=== PATIENT | female | born 1945 | race Asian ===

== ENCOUNTER → 2018-01-26 09:37 | Outpatient (CLI) | payer MEDICARE, MEDICAID, SELFPAY ==
[2018-01-26 10:15] LABS: Add Manual Diff / Slide Review NO; Basophils Percent Auto 0.6 % (0-2); Eosinophils Percent Auto 3.4 % (2-4); Hematocrit 32.9 % (36-46); Hemoglobin 10.8 g/dL (12.0-16.0); Lymphocytes Percent Auto 36.8 % (25-40); Mean Corpuscular HGB Conc 32.7 % (30-36); Mean Corpuscular Volume 94.7 fL (80-100); Monocytes Percent Auto 8.5 % (3-14); Neutrophils Absolute Auto 3800 /uL (3000-5900); Neutrophils Percent Auto 50.7 % (50-75); Platelet Count 258 X10^3/uL (150-400); Red Blood Cell Count 3.47 X10^6/uL (4.0-5.2); Red Cell Distribution Width 14.2 % (11.6-14.8); White Blood Cell Count 7.5 X10^3/uL (4.5-11.0)
[2018-01-26 10:55] LABS: HEMOLYSIS < 15 (0-50); Iron 49 ug/dL (37-170)
[2018-01-26 10:57] LABS: Blood Urea Nitrogen 17 mg/dL (7-17); Calcium 9.2 mg/dL (8.4-10.2); Carbon Dioxide 25 mmol/L (22-32); Chloride 108 mmol/L (98-107); Estimated Glomerular Filt Rate 54.5 mL/min (>60); Glucose 87 mg/dL (80-110); HEMOLYSIS < 15 (0-50); Sodium 142 mmol/L (137-145)
[2018-01-26 11:06] LABS: Percent Iron Saturation 12 % (15-50); Total Iron Binding Capacity 409 ug/dL (265-497); Transferrin 315 mg/dL (206-381)
[2018-01-26 11:34] LABS: Creatinine Urine Random 64.5 mg/dL
[2018-01-26 11:39] LABS: Microalbumi Creatinin Ratio Ur 9.3 ug/mg CR (<30); Microalbumin Urine Random < 0.6 mg/dL (0-1.6)
[2018-01-26 12:01] LABS: Folate 5.1 ng/mL (2.76-20.0); Vitamin B12 200 pg/mL (239-931)
[2018-02-02 00:30] LABS: Methylmalonic Acid 251 nmol/L (87-318)
== END ==
PROVIDERS: Family Provider Family Medicine; PCP Family Medicine; Visit Provider Internal Medicine
DX: N18.3 Chronic kidney disease, stage 3 (moderate) (principal); D64.9 Anemia, unspecified
CPT/HCPCS: 36415; 80048; 82043; 82570; 82607; 82746; 83540; 83550; 83921; 85025

== ENCOUNTER → 2018-02-15 11:40 | Outpatient (CLI) | payer MEDICARE, MEDICAID, SELFPAY ==
--- NOTE | 2018-02-15 | DI.MG.S_ITS ---
BILATERAL DIGITAL SCREENING MAMMOGRAM 3D/2D WITH CAD: 02/15/2018 CLINICAL: Routine screening. Comparison is made to exams dated: 10/16/2016 mammogram - [facility], 05/14/2015 mammogram, and 05/14/2014 mammogram - [facility]. There are scattered fibroglandular elements in both breasts. Current study was also evaluated with a Computer Aided Detection (CAD) system. No significant masses, calcifications, or other findings are seen in either breast. There has been no significant interval change. IMPRESSION: NEGATIVE There is no mammographic evidence of malignancy. A 1 year screening mammogram is recommended. This exam was interpreted at Station ID: [id number]. NOTE: For mammograms, a report in lay terms will be sent to the patient. Approximately 15% of breast malignancies will not be visualized mammographically. In the management of a palpable breast mass, a negative mammogram must not discourage biopsy of a clinically suspicious lesion. Electronically Signed By: Tameka randolph/willian:02/15/2018 15:16:13 letter sent: Normal Exam ACR BI-RADS Category 1: Negative [id number]
== END ==
PROVIDERS: Family Provider Family Medicine; PCP Family Medicine; Referring Provider Internal Medicine; Visit Provider Family Medicine
DX: Z12.31 Encounter for screening mammogram for malignant neoplasm of breast (principal)
CPT/HCPCS: 77063; 77067

== ENCOUNTER → 2018-04-26 12:13 | Outpatient (CLI) | payer MEDICARE, MEDICAID, SELFPAY ==
--- NOTE | 2018-04-26 12:15 | DI.RAD.S_ITS ---
PROCEDURE: XR LUMBAR SPINE 2-3V INDICATIONS: low back pain TECHNIQUE: 3 views of the lumbar spine were acquired. COMPARISON: [facility], CT, CT ABDOMEN PELVIS WITH CONTRAST, 05/31/2017, 14:34. [facility], CR, XR HIP W PEL IF DONE RT 2V, 04/26/2018, 12:12. FINDINGS: Bones: 5 nonrib-bearing, lumbar type vertebral bodies are seen. Mild dextroconvex scoliotic curvature is seen. There is overall straightening of the normal lumbar lordosis. There is moderate to severe disc space narrowing at the L3-L4 level, with mild to moderate disc space narrowing at L1-L2. Mild disc space narrowing is seen elsewhere. Lower lumbar spine facet arthropathy is seen. No displaced fractures are seen. No suspicious lytic or blastic lesions are seen. Soft tissues: Overlying bowel gas pattern is normal. No suspicious soft tissue calcifications. Cholecystectomy clips are seen. IMPRESSION: Dextroconvex lumbar scoliosis and focal degenerative change at L3-L4. Dictated by: Kavon Trejo M.D. on 04/26/2018 at 13:27 Approved by: Kavon Trejo M.D. on 04/26/2018 at 13:29
--- NOTE | 2018-04-26 12:15 | DI.RAD.S_ITS ---
PROCEDURE: XR HIP W PEL IF DONE RT 2V INDICATIONS: right hip pain TECHNIQUE: AP pelvis with lateral view(s) of the right hip(s). COMPARISON: [facility], , XR LUMBAR SPINE 2-3V, 04/26/2018, 12:12. FINDINGS: Bones: No fractures or dislocations. Pelvic ring appears intact. No suspicious bony lesions. There is mild superior joint space narrowing seen of both hips, with associated remodeling changes with subchondral sclerosis and osteophyte formation. Soft tissues: The visualized bowel gas pattern is normal. No suspicious soft tissue calcifications. IMPRESSION: Mild degenerative changes are seen of the hips. Dictated by: Kavon Trejo M.D. on 04/26/2018 at 13:25 Approved by: Kavon Trejo M.D. on 04/26/2018 at 13:27
== END ==
PROVIDERS: Family Provider Family Medicine; PCP Family Medicine; Visit Provider Family Medicine
DX: M51.36 Other intervertebral disc degeneration, lumbar region (principal); M16.0 Bilateral primary osteoarthritis of hip; M41.86 Other forms of scoliosis, lumbar region; M25.551 Pain in right hip; M54.5 Low back pain
CPT/HCPCS: 72100; 73502

== ENCOUNTER → 2018-08-19 08:36 | Outpatient (CLI) | payer MEDICARE, MEDICAID, SELFPAY ==
[2018-08-19 09:10] LABS: Add Manual Diff / Slide Review NO; Basophils Percent Auto 0.7 % (0-2); Eosinophils Percent Auto 5.9 % (2-4); Hematocrit 32.1 % (36-46); Hemoglobin 10.6 g/dL (12.0-16.0); Lymphocytes Percent Auto 41.8 % (25-40); Mean Corpuscular Hemoglobin 30.5 PG (26-34); Mean Corpuscular Volume 92.4 fL (80-100); Monocytes Percent Auto 9.2 % (3-14); Neutrophils Absolute Auto 2700 /uL (1500-7000); Neutrophils Percent Auto 42.4 % (50-75); Platelet Count 204 X10^3/uL (150-400); Red Blood Cell Count 3.48 X10^6/uL (4.0-5.2); Red Cell Distribution Width 14.4 % (11.6-14.8); White Blood Cell Count 6.4 X10^3/uL (4.5-11.0)
[2018-08-19 09:29] LABS: Alanine Aminotransferase 23 IU/L (9-52); Albumin 3.7 g/dL (3.5-5.0); Albumin Globulin Ratio 1.2 (1.0-2.8); Alkaline Phosphatase 68 U/L (38-126); Aspartate Aminotransferase 20 IU/L (14-36); BUN Creatinine Ratio 18.2 (6-22); Bilirubin Total 0.3 mg/dL (0.2-1.3); Blood Urea Nitrogen 20 mg/dL (7-17); Calcium 9.4 mg/dL (8.4-10.2); Carbon Dioxide 23 mmol/L (22-32); Chloride 107 mmol/L (98-107); Estimated Glomerular Filt Rate 48.8 mL/min (>60); Glucose 96 mg/dL (80-110); HEMOLYSIS < 15 (0-50); Lipase 202 U/L (23-300); Potassium 4.5 mmol/L (3.4-5.1); Sodium 140 mmol/L (137-145); Total Protein 6.7 g/dL (6.3-8.2)
[2018-08-19 10:14] LABS: Vitamin B12 871 pg/mL (239-931)
== END ==
PROVIDERS: PCP Family Medicine; Visit Provider Family Medicine
DX: D64.9 Anemia, unspecified (principal); R68.81 Early satiety; E53.8 Deficiency of other specified B group vitamins; E55.9 Vitamin D deficiency, unspecified
CPT/HCPCS: 36415; 80053; 82306; 82607; 83690; 85025

== ENCOUNTER 2018-09-08 02:41 | Emergency (ER) | payer MEDICARE, MEDICAID, SELFPAY ==
[2018-09-08 02:55] VITALS: BP 178/113; PULSE 91; RESP 17; TEMP 36.8; O2SAT 96; BMI 35.6
--- NOTE | 2018-09-08 03:18 | ED_ITS ---
HPI - Female Genitourinary General Chief complaint: Urogenital-Female Stated complaint: UNABLE TO URINATE, ABDOMINAL PAIN Time Seen by Provider: 09/08/18 02:44 Source: patient and family Mode of arrival: ambulatory Limitations: no limitations History of Present Illness HPI Narrative: 72-year-old female, nonsmoker with history of kidney disease and depression presents with severe suprapubic pain and inability to urinate over the past day or so. She recently started a muscle relaxer and has been taking it for 2 days, otherwise denies any new medications. She has no back pain, fever or history of IV drug use. She has never had any abdominal or pelvic surgeries and denies any history of childbirth. She has some vaginal fullness but denies any bleeding or discharge MD Complaint: dysuria, UTI and pelvic pain Onset (ago): hour(s) Location: suprapubic Severity: moderate Quality: Aching and Cramping Duration: constant and progressively worsening Relieving factors: none Urinary symptoms: Difficulty Urinating and Dysuria Patient : No Associated symptoms: denies other symptoms Related Data Home Medications Medication Instructions Recorded Confirmed vitamins A,C,G-jezl-wcgkey 1 sgl PO #0 06/23/16 05/23/18 [PreserVision AREDS] mecobalamin (vitamin B12) 1,000 1,000 mcg SL DAILY 02/02/18 05/23/18 mcg disintegrating tablet,sublingual Previous Rx's Medication Instructions Recorded clobetasol 1 nabil TOPICAL QID #15 gm 03/18/17 Disabled Parking Permit 0 dev #1 08/11/17 fluticasone 50mcg 1 each NASAL BID #1 each 01/07/18 spray,suspen-sodium chloride 0.9% spray nasal kit ferrous sulfate 325 mg (65 mg 325 mg PO DAILY #90 tab 02/08/18 iron) tablet gabapentin 600 mg tablet 600 mg PO TID #270 tab 06/02/18 metformin [Glucophage] 500 mg PO BIDCC #180 tab 06/02/18 diclofenac 3 % topical gel 1 applictn TOP BID 90 Days #100 08/19/18 gram paroxetine 40 mg tablet 40 mg PO DAILY #90 tab 08/19/18 dicyclomine 10 mg capsule 10 mg PO QID #30 cap 08/26/18 fluticasone furoate 200 1 inhalation INHALATION DAILY #30 08/26/18 mcg/actuation blister powder for each inhalation hydrochlorothiazide 25 mg PO QDAY #90 tab 08/29/18 levothyroxine 100 mcg PO QAM #90 tab 08/29/18 montelukast [Singulair] 10 mg PO QDAY #90 tab 08/29/18 omeprazole 40 mg PO QAM #90 cap 08/29/18 albuterol sulfate HFA 90 2 puff INHALATION Q4H PRN #18 gram 08/30/18 mcg/actuation aerosol inhaler Allergies Allergy/AdvReac Type Severity Reaction Status Date / Time No Known Drug Allergies Allergy Verified 05/23/18 15:48 Review of Systems Constitutional Denies chills, Denies fever(s), Denies lethargy and Denies weakness Eyes Denies change in vision, Denies eye discharge, Denies irritation and Denies loss of vision ENT Ears, Nose, Mouth, and Throat: Denies change in voice, Denies neck pain and Denies sore throat Cardiovascular Denies chest pain, Denies irregular heart rhythm, Denies lightheadedness, Denies palpitations, Denies dyspnea, Denies dyspnea on exertion and Denies orthopnea Respiratory Denies cough, Denies dyspnea, Denies dyspnea on exertion and Denies wheezing Gastrointestinal Gastrointestinal: Denies abdominal pain, Denies change in bowel habits, Denies diarrhea, Denies nausea and Denies vomiting Genitourinary Denies hematuria, Reports dysuria, Reports pelvic pain, Denies flank pain, Reports urinary hesitancy and Reports urinary urgency Musculoskeletal Denies neck pain Integumentary/Breasts Denies pruritus, Denies erythema, Denies rash and Denies wounds Neurologic Denies confusion, Denies loss of vision and Denies weakness Psychiatric Denies anxiety, Denies confusion, Denies depression, Denies homicidal ideation and Denies suicidal ideation Endocrine Denies palpitations Hematologic/Lymphatic Denies easy bruising Allergic/Immunologic Denies wheezing PFSH Medical History Asthma (Chronic ~196) Burning sensation of feet (Chronic) Chronic headaches (Chronic) Difficulty falling asleep at night until home health travel ot hours (Chronic) Eczema (Chronic) Foot pain (Chronic) Hyperthyroidism (Chronic) Neck stiffness (Chronic) Shoulder pain (Chronic) Cataract (Resolved) Surgical History Anesthesia (Resolved) History of carpal tunnel repair (Resolved 2007) History of cataract removal with insertion of prosthetic lens (Resolved) History of knee replacement (Resolved 2009) Family History Brother Age: 62 Prostate cancer Father Cancer Diabetes mellitus Hypertension Stroke Lung cancer Mother Heart disease Hypertension Heart attack Psoriasis Sister Age: 57 Brain tumor Cancer Social History Smoking Status: Never smoker Family History Brother Age: 62 Prostate cancer Father Cancer Diabetes mellitus Hypertension Stroke Lung cancer Mother Heart disease Hypertension Heart attack Psoriasis Sister Age: 57 Brain tumor Cancer Social History Smoking Status: Never smoker Exam Narrative Exam Narrative: GEN: 72-year-old female, obviously uncomfortable rubbing her lower abdomen EYES: Pupils are equal, round, and reactive to light and accommodation. Extraoccular muscles are intact bilaterally. There is no subconjunctival hemorrhage or exudate. CHEST: Lungs are clear to auscultation bilaterally and free of wheezes, rales, or rhonchi. Heart rate is regular rhythm, there are no murmurs, clicks, rubs, or gallops. There is no chest wall tenderness. ABD: Abdomen is soft and with suprapubic tenderness. There is no guarding or rebound. Bowel sounds are normal in all 4 quadrants. There is no mass or organomegaly. EXT: Full painless ROM of all extremities with no loss of sensation or strength. SKIN: Warm, pink, and dry. No erythema or rash Initial Vital Signs Initial Vital Signs: Vital Signs Temperature 98.2 F 09/08/18 02:55 Pulse Rate 91 H 09/08/18 02:55 Respiratory Rate 17 09/08/18 02:55 Blood Pressure 178/113 H 09/08/18 02:55 Pulse Oximetry 96 09/08/18 02:55 Course Orders Ordered: ED Orders 09/08/18 03:20 Urine Microscopic Stat Reevaluation(s) Reevaluation #1: bladder scan notes >400mL Patient has a complete resolution of symptoms after placement of Nash Vital Signs - 8 hr 09/08/18 02:55 Temperature 98.2 F Pulse Rate 91 H Respiratory Rate 17 Blood Pressure 178/113 H Pulse Oximetry 96 MDM - Female Genitourinary Lab Data Lab Results 09/08/18 Range/Units 03:20 Urine RBC 1-5/hpf (0-5/HPF) Urine WBC None seen (0-5/HPF) Ur Squamous Epith Cells 0-1 /hpf Urine Bacteria None seen (None) Ur Culture Indicated? Cult not indicated Urine Dip Bedside Urine Glucose Negative Bedside Urine Bilirubin - Negative Bedside Urine Ketone - Negative Urine Specific [place] 1.015 Bedside Urine Occult Blood + Bedside Urine pH 6.5 Bedside Urine Protein - Negative Bedside Urine Urobilinogen - Negative Bedside Urine Nitrite - Negative Bedside Urine Leukocytes - Negative Esterase Discharge Plan Departure Patient Disposition: Home Clinical Impression: Acute urinary retention Instructions: DI for Urinary Retention in Women Activity Restrictions/Additional Instructions: *You have been diagnosed with [ acute urinary retention ] *What to do: *Take medications as directed *Follow up with [facility], call for an appointment. Let them know you were seen in the Emergency Department and that we ask that you be seen in follow up *Return to ER if you should have any new, worsening or concerning symptoms Prescriptions: No Action vitamins A,C,V-sbfs-dfpkoz [PreserVision AREDS] 1 EACH capsule 1 sgl PO Qty: 0 RF: 0 clobetasol 0.05 % gel 1 nabil Topical QID Qty: 15 RF: 0 Disabled Parking Permit Qty: 1 RF: 0 mecobalamin (vitamin B12) 1,000 mcg tablet,disintegrating 1,000 mcg SL DAILY RF: 0 metformin [Glucophage] 500 mg tablet 500 mg PO BIDCC Qty: 180 RF: 1 gabapentin [Neurontin] 600 mg tablet 600 mg PO TID Qty: 270 RF: 1 paroxetine HCl 40 mg tablet 40 mg PO DAILY Qty: 90 RF: 3 diclofenac sodium 3 % gel 1 applictn TOP BID 90 Days Qty: 100 RF: 2 dicyclomine 10 mg capsule 10 mg PO QID Qty: 30 RF: 0 fluticasone furoate [Arnuity Ellipta] 200 mcg/actuation blister with device 1 inhalation INHALATION DAILY Qty: 30 RF: 1 omeprazole 40 mg capsule,delayed release(DR/EC) 40 mg PO QAM Qty: 90 RF: 0 montelukast [Singulair] 10 mg tablet 10 mg PO QDAY Qty: 90 RF: 0 levothyroxine 100 mcg tablet 100 mcg PO QAM Qty: 90 RF: 0 hydrochlorothiazide 25 mg tablet 25 mg PO QDAY Qty: 90 RF: 0 albuterol sulfate [Ventolin HFA] 90 mcg/actuation HFA aerosol inhaler 2 puff INHALATION Q4H PRN (Reason: shortness of breath or wheezing) Qty: 18 RF: 2 fluticasone-sod chl-sod bicarb 50 mcg- 0.9 % kit,spray suspension and spray 1 each NASAL BID Qty: 1 RF: 5 ferrous sulfate 325 mg (65 mg iron) tablet 325 mg PO DAILY Qty: 90 RF: 1 Referrals: Thomas Soliz MD [Non-Staff] - Blanca Bauer MD [Primary Care Provider] -
[2018-09-08 04:17] LABS: Bacteria Urine None Seen; WBC Urine None Seen (0-5/HPF)
[2018-09-08 04:20] LABS: Culture Indicated Urine Cult Not Indicated; RBC Urine 1-5/HPF (0-5/HPF); Squamous Epithelial Cell Urine 0-1 /HPF
[2018-09-08 04:41] VITALS: BP 123/80; PULSE 80; RESP 16; O2SAT 95
== END 2018-09-08 04:41 | disposition home or self-care (01) ==
PROVIDERS: Emergency Provider Emergency Medicine; Family Provider Family Medicine; PCP Family Medicine
DX: R33.8 Other retention of urine (principal)
CPT/HCPCS: 81003; 81015; 99283

== ENCOUNTER 2018-09-12 12:29 | Emergency (ER) | payer MEDICARE, MEDICAID, SELFPAY ==
[2018-09-12 12:38] VITALS: BP 131/83; PULSE 74; RESP 15; TEMP 36.3; O2SAT 98; BMI 35.4
--- NOTE | 2018-09-12 12:48 | ED.FEMALEGU ---
HPI - Female Genitourinary General Chief complaint: Urogenital-Female Stated complaint: blood found in cath Time Seen by Provider: 09/12/18 12:39 Source: patient Mode of arrival: ambulatory Limitations: no limitations History of Present Illness HPI Narrative: Patient is a 72-year-old female who was seen here on September 08 for acute urinary retention. She had a Nash catheter placed. She states she does have a follow-up with a urologist on the of this month. She states that last evening she noticed dark urine and then today noticed blood in the urine. She also states she has been drinking a bunch of water and has had little urine output. She also has lower abdominal tenderness. Related Data Home Medications Medication Instructions Recorded Confirmed vitamins A,C,Z-liuy-kbvjeg 1 sgl PO DAILY #0 06/23/16 09/12/18 [PreserVision AREDS] mecobalamin (vitamin B12) 1,000 1,000 mcg SL DAILY 02/02/18 09/12/18 mcg disintegrating tablet,sublingual Disabled Parking Permit 1 dev MISCELLANEOUS DIRECTED 09/12/18 09/12/18 hydrochlorothiazide 25 mg PO DAILY 09/12/18 09/12/18 levothyroxine 100 mcg PO DAILY 09/12/18 09/12/18 montelukast [Singulair] 10 mg PO DAILY 09/12/18 09/12/18 omeprazole 40 mg PO DAILY 09/12/18 09/12/18 Previous Rx's Medication Instructions Recorded clobetasol 1 nabil TOPICAL QID #15 gm 03/18/17 fluticasone 50mcg 1 each NASAL BID #1 each 01/07/18 spray,suspen-sodium chloride 0.9% spray nasal kit ferrous sulfate 325 mg (65 mg 325 mg PO DAILY #90 tab 02/08/18 iron) tablet gabapentin 600 mg tablet 600 mg PO TID #270 tab 06/02/18 metformin [Glucophage] 500 mg PO BIDCC #180 tab 06/02/18 diclofenac 3 % topical gel 1 applictn TOP BID 90 Days #100 08/19/18 gram paroxetine 40 mg tablet 40 mg PO DAILY #90 tab 08/19/18 dicyclomine 10 mg capsule 10 mg PO QID #30 cap 08/26/18 fluticasone furoate 200 1 inhalation INHALATION DAILY #30 08/26/18 mcg/actuation blister powder for each inhalation albuterol sulfate HFA 90 2 puff INHALATION Q4H PRN #18 gram 08/30/18 mcg/actuation aerosol inhaler Allergies Allergy/AdvReac Type Severity Reaction Status Date / Time No Known Drug Allergies Allergy Verified 09/12/18 12:38 Review of Systems Constitutional Denies fever(s) Cardiovascular Denies chest pain and Denies dyspnea Respiratory Denies dyspnea Gastrointestinal Gastrointestinal: Reports abdominal pain, Denies nausea and Denies vomiting Genitourinary Comments: Blood in her urine Musculoskeletal Denies myalgias and Denies arthralgias Integumentary/Breasts Denies rash Neurologic Denies behavioral changes Psychiatric Denies behavioral changes Hematologic/Lymphatic Comments: Not on anticoagulation [facility] Social History Smoking Status: Never smoker Exam Initial Vital Signs Initial Vital Signs: Vital Signs Temperature 97.4 F L 09/12/18 12:38 Pulse Rate 74 09/12/18 12:38 Respiratory Rate 15 09/12/18 12:38 Blood Pressure 131/83 09/12/18 12:38 Pulse Oximetry 98 09/12/18 12:38 HENMT Head: normal to inspection and normocephalic Resp Effort & Inspection: normal respiratory effort Cardio Rate: regular rate GI Inspection: non-distended Palpation: soft and No tender Other: Nash catheter in place Skin Lesions: no lesions Rashes: no rashes Neuro General: alert, awake and oriented x3 Extrem General: normal to inspection Psych Appearance: grossly normal and well kempt Course Vital Signs - 8 hr 09/12/18 12:38 Temperature 97.4 F L Pulse Rate 74 Respiratory Rate 15 Blood Pressure 131/83 Pulse Oximetry 98 MDM - Female Genitourinary MDM Narrative Medical decision making narrative: After bladder scan patient had 18 cc which did drain spontaneously. She was flushed with a very small amount of fluid and had return of clear fluid afterwards. Patient is afebrile. Nash appears to be in place and working appropriately. Hold on any antibiotics. Patient does have follow-up with Urology. She was given return precautions. She expressed understanding and agreement with plan. Discharge Plan Departure Patient Disposition: Home Clinical Impression: Hematuria Instructions: How to Care for Your Nash Catheter -- Female Activity Restrictions/Additional Instructions: Keep all of your scheduled medical appointments. Be sure your increasing your fluid intake. Return to the emergency department for any new or worsening symptoms Prescriptions: No Action vitamins A,C,C-xwby-tqtbqe [PreserVision AREDS] 1 EACH capsule 1 sgl PO DAILY Qty: 0 RF: 0 clobetasol 0.05 % gel 1 nabil Topical QID Qty: 15 RF: 0 mecobalamin (vitamin B12) 1,000 mcg tablet,disintegrating 1,000 mcg SL DAILY RF: 0 metformin [Glucophage] 500 mg tablet 500 mg PO BIDCC Qty: 180 RF: 1 gabapentin [Neurontin] 600 mg tablet 600 mg PO TID Qty: 270 RF: 1 paroxetine HCl 40 mg tablet 40 mg PO DAILY Qty: 90 RF: 3 diclofenac sodium 3 % gel 1 applictn TOP BID 90 Days Qty: 100 RF: 2 dicyclomine 10 mg capsule 10 mg PO QID Qty: 30 RF: 0 fluticasone furoate [Arnuity Ellipta] 200 mcg/actuation blister with device 1 inhalation INHALATION DAILY Qty: 30 RF: 1 albuterol sulfate [Ventolin HFA] 90 mcg/actuation HFA aerosol inhaler 2 puff INHALATION Q4H PRN (Reason: shortness of breath or wheezing) Qty: 18 RF: 2 fluticasone-sod chl-sod bicarb 50 mcg- 0.9 % kit,spray suspension and spray 1 each NASAL BID Qty: 1 RF: 5 ferrous sulfate 325 mg (65 mg iron) tablet 325 mg PO DAILY Qty: 90 RF: 1 omeprazole 40 mg capsule,delayed release(DR/EC) 40 mg PO DAILY RF: 0 levothyroxine 100 mcg tablet 100 mcg PO DAILY RF: 0 montelukast [Singulair] 10 mg tablet 10 mg PO DAILY RF: 0 hydrochlorothiazide 25 mg tablet 25 mg PO DAILY RF: 0 Disabled Parking Permit 1 dev miscellaneous DIRECTED RF: 0
--- NOTE | 2018-09-12 13:45 | PC.NURSE ---
Patient presents with lower abd comfort, and some blood in urine. Concerns catheter is not draining correctly. Patient has 150ml output in bowen back pink in color.
[2018-09-12 14:27] VITALS: BP 127/74; PULSE 67; RESP 16; O2SAT 95
== END 2018-09-12 14:46 | disposition home or self-care (01) ==
PROVIDERS: Emergency Provider Emergency Medicine; Family Provider Family Medicine; PCP Family Medicine
DX: R31.9 Hematuria, unspecified (principal)
CPT/HCPCS: 51798; 99283

== ENCOUNTER → 2018-10-10 15:45 | Outpatient (CLI) | payer MEDICARE, MEDICAID, SELFPAY ==
--- NOTE | 2018-10-10 | DI.MRI.S_ITS ---
PROCEDURE: MR LUMBAR SPINE WO CON INDICATIONS: LOW BACK PAIN. BILATERAL LEG PAIN TECHNIQUE: Noncontrast sagittal T1 spin echo and T2 fast echo, sagittal STIR, coronal T2, axial T1 and T2 fast spin echo through the lumbar spine. COMPARISON: [facility], CR, XR LUMBAR SPINE 2-3V, 04/26/2018, 12:12. FINDINGS: Image quality: Partially degraded by motion artifact. Alignment and Curvature: 5 lumbar type vertebral bodies are present by plain film. Moderate rightward curvature of the midlumbar spine is present. There is mild, grade 1 retrolisthesis of L2 on L3, L3 on L4, and L4 on L5. Bone Marrow: Marrow is of normal overall signal. No acute vertebral body compression fractures. Mild reactive signal within the endplates adjacent to the the L1-L2, L2-L3, and L3-L4 intervertebral discs. Spinal Cord: Conus medullaris terminates at the L1-L2 disc space level. Visualized cord demonstrates normal signal and size. Paraspinous Soft Tissues: No paravertebral masses. L1-L2: Moderate disc height loss and desiccation. Mild diffuse disc bulge. Mild bilateral facet and ligamentum flavum hypertrophy. Mild epidural lipomatosis. Mild canal stenosis. Mild bilateral foraminal stenosis. L2-L3: Moderate disc height loss and desiccation. Moderate diffuse disc bulge. Mild facet and ligament flavum hypertrophy. Mild epidural lipomatosis. Moderate canal stenosis. Mild bilateral foraminal stenosis. L3-L4: Severe disc height loss and desiccation. Mild diffuse disc bulge with superimposed small broad-based left for lateral protrusion/osteophyte. Mild facet hypertrophy. Moderate ligament flavum hypertrophy bilaterally. Moderate to severe canal stenosis. Moderate left and mild right foraminal stenosis. L4-L5: Mild disc height loss and desiccation. Mild diffuse disc bulge. Mild facet and ligamentum flavum hypertrophy. Moderate canal stenosis. Mild bilateral foraminal stenosis. L5-S1: Moderate disc height loss and desiccation. Mild diffuse disc bulge. Mild facet and ligamentum flavum hypertrophy. Moderate canal stenosis. Severe right and mild left foraminal stenosis. Mild flattening deformity of the right L5 nerve root within the neural foramen. IMPRESSION: 1.Multilevel degenerative disc and facet disease, as well as ligamentum flavum hypertrophy and epidural lipomatosis. 2. Multilevel canal stenoses, worst at L3-L4, where there is moderate to severe canal stenosis. Moderate canal stenoses at L2-L3, L4-L5, and L5-S1. 3. Multilevel foraminal stenoses, worst on the right at L5-S1 where there is flattening deformity of the right L5 nerve root within the neural foramen. Dictated by: Salima Cristina M.D. on 10/10/2018 at 16:49 Approved by: Salima Cristina M.D. on 10/10/2018 at 16:54
== END ==
PROVIDERS: PCP Family Medicine; Visit Provider Family Medicine
DX: M54.5 Low back pain (principal); M79.605 Pain in left leg; M79.604 Pain in right leg; M51.36 Other intervertebral disc degeneration, lumbar region; M51.37 Other intervertebral disc degeneration, lumbosacral region; M48.061 Spinal stenosis, lumbar region without neurogenic claudication; M48.07 Spinal stenosis, lumbosacral region; E88.2 Lipomatosis, not elsewhere classified
CPT/HCPCS: 72148

== ENCOUNTER → 2018-12-12 10:00 | Outpatient (CLI) | payer MEDICARE, MEDICAID, SELFPAY ==
[2018-12-12 11:06] LABS: Hemoglobin A1C% w Est Avg Glu 5.7 % (4.0-6.0)
[2018-12-12 11:50] LABS: Thyroid Stimulating Hormone 6.22 uIU/mL (0.47-4.68)
== END ==
PROVIDERS: PCP Family Medicine; Visit Provider Podiatrist
DX: Z01.818 Encounter for other preprocedural examination (principal); E03.9 Hypothyroidism, unspecified; E66.01 Morbid (severe) obesity due to excess calories
CPT/HCPCS: 36415; 83036; 84443; 93005

== ENCOUNTER → 2018-12-19 08:13 | Outpatient (CLI) | payer MEDICARE, MEDICAID, SELFPAY ==
--- NOTE | 2018-12-19 | DI.RAD.S_ITS ---
PROCEDURE: FL BARIUM SWALLOW W SPEECH INDICATIONS: DYSPHAGIA TECHNIQUE: Examination was conducted in conjunction with speech pathology per standard protocol. In the lateral projection, filming was performed of the patient swallowing. AP projection filming may also be performed with patient swallowing. COMPARISON: None. FINDINGS: Function: The oral preparatory phase appears normal, with proper containment. The subsequent oral propulsive phase, pharyngeal phase, and esophageal phase of swallowing appeared generally normal with all proffered substances except for presence of a pronounced gag reflex with multiple episodes of near emesis over the course of the study. During one of these events a slight degree of anterior penetration without aspiration was observed. No laryngotracheal penetration or aspiration. No pathologic vallecular pooling. Morphology: No cricopharyngeal bar is identified. No cervical esophageal webs. No Zenker's diverticulum. No strictures. IMPRESSION: Pronounced gag reflex with multiple episodes of near emesis over the course of the study and a single episode of slight anterior penetration of barium liquid without extension of this into the glottic area or upper trachea. Please also refer to the dedicated speech therapy report that will be independently generated. Dictated by: Jose Pitt M.D. on 12/19/2018 at 9:37 Approved by: Jose Pitt M.D. on 12/19/2018 at 9:55
--- NOTE | 2018-12-20 14:44 | ST.SWALLOW ---
Care Team Visit Care Team Role Provider Type Blanca Bauer MD Primary Care Provider Physician Specialty: Family Practice Address: [address] [place] [address], [id number] Email: [email or web address] Terence Connors MD Attending Provider Physician Specialty: Ear, Nose, Throat Address: [address] [place] [address], [id number] Email: Modified Barium Swallow Study [employer] Modified Barium Swallow Study Start: 12/19/18 09:04 Freq: Status: Active Protocol: Document 12/19/18 09:04 TIANNA (Rec: 12/19/18 09:20 TIANNA [id number]) Modified Barium Swallow Study Total Time Visit Start Time 08:30 Visit Stop Time 09:00 Total Visit Minutes [address] Terence Connors Reason for Referral Dysphagia Setting Setting Outpatient Care Patient Information Identification Type Name ID Card Patient History This pleasant 73-yr-old female complains of swallow difficulty for >4 yrs including choking and coughing primarily with foods, occasionally liquids, and frequent sticking sensation at base of throat. She has never required Heimlich maneuver. Hyperactive gag reflex was present during the study, which the pt reports is often typical with oral intake. She must take very small bites well chewed to prevent symptoms. Foods that give her greatest difficulty are rice and crunchy foods such as chips. She consumes rice with most meals, which proves to be very problematic. She reported that sometimes oily food enters the airway, causing her to cough and expel oil from her nasal cavity. She normally swallows pills whole with water and frequently experiences sticking sensation. She reported having has a Modified Barium Swallow Study ~3-4 yrs ago in [place]. She recalls being told that something was narrowing in my throat. She has received no treatment or follow up since then. PMHx significant for chronic asthma, GERD for which she has taken medication for ~10 yrs, hypothyroidism, and high blood pressure. She denied pneumonia. Subjective Observations The pt arrived on time, provided case history, and was able to follow all instructions throughout the evaluation. Oral Peripheral Exam revealed symmetrical structures all WNL of strength and ROM. Mildly reduced buccal coordination when attempting to shift air laterally in cheeks. Coordination of other structures was WNL. Soft palate elevated with phonation . Pt was able to produce volitional swallow and strong cough. Dentition is complete with a mixture of natural teeth and implants, which appear to be in good condition ; no complaints of chewing difficulties. Patient Positioning Position View Lat-A/P Imaging Lateral View Textures Administered Trials Presented Thin Liquid via Spoon Thin Liquid via Cup Chaffee Liquid via Spoon Chaffee Liquid via Cup Honey Liquid via Spoon Pudding Thick Liquid via Spoon Regular Textures Oral Phase Source: MBSIMP (TM) (C) Bolus Specific Scoring Grid Lip Closure WFL Tongue Control During Bolus Hold Moderate Impairment Bolus Prep/Mastication Mild Impairment Bolus Transport/Lingual Motion Moderate Impairment A/P Lingual Propulsion Delay Yes Number of Seconds Delayed (seconds) Up to 4 sec secondary to strong gag reflex Residue Clearing WFL Nasal Regurgitation No Additional Oral Phase Observations During the first trial of thin liquid via tsp, contrast rapidly escaped past the lips and to chin and dressing gown upon initiation of a/p movement. This was an isolated occurrence; lip seal was WNL with all other trials. The pt exhibited difficulty holding initial teaspoon boluses of thin liquid, allowing liquid to immediately escape to pharyngeal cavity, indicating reduced strength at back of tongue. This contributes to delayed swallow trigger, particularly with liquids. Occasional lingual rocking was present with initiation of a/ p propulsion, which appears to be a consequence of hyperactive gag reflex more than of lingual impairment. The pt required 3 swallows of water in order to clear 13 mm barium tablet from the oral cavity. Frequent lingual rocking with escape of bolus to lateral sulci was observed during a/p propulsion, and mild oral residue remained at lateral sulci post swallow. The pt exhibited strong gag with most trials, most consistently with liquids. No esophageal or nasal regurgitation was observed. Mild oral residue along lingual blade and lateral sulci cleared with subsequent swallows. Mastication of small cookie was somewhat mashing in nature but WFL. Pharyngeal Phase Source: MBSIMP (TM) (C) Bolus Specific Scoring Grid Delayed Initiation of Pharyngeal Swallow Yes Number of Seconds Delayed (seconds) Up to 5 sec secondary to strong gag reflex Soft Palate Elevation No Impairment (WNL) Tongue Base Strength/Range of Motion Mild Impairment Residue Along the Tongue Base Yes: Trace Clearance of Residue Along Tongue Base WFL Laryngeal Elevation WFL Anterior Hyoid Movement Minimal Impairment Epiglottic Range of Motion No Impairment (WNL) Vallecular Residue Yes: Trace Clearance of Vallecular Residue Minimal Impairment Laryngeal Vestibular Closure Minimal Impairment Pharyngeal Stripping Wave Mild Impairment Pharyngeal Contraction WFL Posterior Pharyngeal Wall Residue No Upper Esophageal Sphincter Opening No Impairment (WNL) Residue in the Pyriform Sinuses No Esophageal Clearance Upright Position WFL Pharyngoesophageal Backflow Observed No Additional Pharyngeal Phase Observations Significant interference from strong gag reflex was observed with most trials, resulting in increased air intake with swallows and subsequent burping. Swallows were frequently audible, indicating reduced coordination of structures; however, this also appears to be a consequence of her strong gag reflex. Swallow trigger was inconsistent, improving with bulk of bolus. Trigger with thin occurred at pyriform sinuses, with NTL at vallecula and pyriform sinuses, with HTL at vallecula, and with solids was WNL. Again, gag appeared to influence swallow trigger. Reduced linguapharyngeal contact resulted in mild pharyngeal stripping wave impairment. Hyolaryngeal elevation and excursion was inconsistent, also influenced by gag reflex, and may compromise closure of the laryngeal vestibule and airway protection. Significant flash penetration was observed x1 with consecutive sips of thin liquid. No other penetration and no aspiration was observed during this study. UES opening was WNL and no significant pharyngeal residue observed. A/P View Textures Administered Trials Presented Thin Liquid via Cup Chaffee Liquid via Cup Barium Tablet A/P View Observations Pharyngeal Contraction Minimal Impairment Esophageal Function Slowed Clearing Esophageal Clearance Upright Position WFL Additional Observations Inconsistent pharyngeal contraction with intake of NTL . The pt consumed 2 trials of NTL with deviation to left side observed with first trial and symmetrical and complete contraction during the 2nd trial. Emptying of boluses through LES was mildly slow but complete with NTL and 13mm barium tablet. Clinical Impressions Dysphagia Type Moderate Oral and Mild Pharyngeal Dysphagia Findings The pt presents with moderate oral dysphagia secondary to hyperactive gag reflex and moderately reduced lingual strength and coordination. This results in lingual rocking to complete a/p propulsion, bolus spillage to floor of mouth and lateral sulci, and early escape to pharyngeal cavity. Mild pharyngeal dysphagia appears to be strongly impacted by gag reflex as well , resulting in occasional backflow of bolus to oral cavity and reduced airway protection allowing for flash penetration during this study. It is suspected that penetration and possibly aspiration occur with greater frequency during typical meal consumption when there may be greater distractions than in this highly structured setting . Lingual weakness also contributes to reduced linguapharyngeal contact, and inconsistent hyolaryngeal movement may also compromise closure of the laryngeal vestibule, increasing risk of aspiration and choking. Rehabilitation Potential Good Patient Appropriate for Therapy Yes Recommendations Diet Liquids Order Thin Diet Order Dysphagia Mechanical Medication Recommendation As Tolerated Comments Use carrier if helpful when swallowing medication Aspiration Precautions Recommended Precautions Upright at 90 Degrees Small Bites/Sips Additional Precautions Chew well. Treatment Plan Therapy Recommendations Outpatient Speech Therapy Lingual Exercises Other Additional Therapy Recommendations Pharyngeal and laryngeal exercises; Reduce gag reflex Short Term Goals Oral stimulation to reduce gag reflex. Lingual, pharyngeal and laryngeal exercises to increase bolus control in oral cavity, improve pharyngeal stripping wave, and improve airway closure. Compensatory strategies and swallow safety training to reduce gag reflex and aspiration risk. Detention Goals The pt will perform swallow exercises and safety strategies independently to improve swallow function and reduce risk of aspiration. The pt will tolerate least restricted diet to meet her nutrition and hydration needs. Placement Recommendation After Discharge Home
== END ==
PROVIDERS: PCP Family Medicine; Visit Provider Otolaryngology Facial Plastic Surgery
DX: R13.10 Dysphagia, unspecified (principal)
CPT/HCPCS: 74230; 92611

== ENCOUNTER → 2018-12-22 10:37 | Outpatient (CLI) | payer MEDICARE, MEDICAID, SELFPAY ==
[2018-12-22 12:21] LABS: HEMOLYSIS < 15 (0-50); Potassium 4.9 mmol/L (3.4-5.1)
== END ==
PROVIDERS: PCP Family Medicine; Visit Provider Podiatrist
DX: Z01.812 Encounter for preprocedural laboratory examination (principal)
CPT/HCPCS: 36415; 84132

== ENCOUNTER 2018-12-23 08:49 | Day surgery (SDC) | payer MEDICARE, MEDICAID, SELFPAY ==
[2018-12-12 14:31] VITALS: BMI 35.9
[2018-12-23] VITALS (8 sets, daily range): BP systolic 98–138; BP diastolic 51–86; PULSE 60–84; RESP 10–16; TEMP 36–36.1; O2SAT 94–100; BMI 35.9
[2018-12-23] MEDS: LACTATED RINGERS 1,000 ML 42 ML IV (09:10)
--- NOTE | 2018-12-23 10:18 | PM.PREOP ---
Pre-operative Note Interval Note History & Physical reviewed/Exam performed by Physician: Yes Changes to H&P: No
--- NOTE | 2018-12-23 10:18 | PM.OP.1 ---
Operative Date/Time/Diagnoses Date of procedure: 12/23/18 Time of procedure: 10:18 Pre-op diagnosis: Right midfoot arthritis Post-op diagnosis: same Procedure & Clinicians Procedure: Right midfoot exostectomy Same procedure as scheduled: Yes Indications: Painful spurring and arthritis to the right midfoot. Conservative measures have failed to alleviate the pain and she wished to have surgical intervention at this time. Surgeon: Oumou Stinson Anesthesia Type: General Operative Notes Closure Type: primary Specimen(s): none sent Estimated Blood Loss (mL): 20 Blood products transfused: none Tourniquet time (min): 28 Procedure in detail: The patient was brought to the operating room and placed on the operating table in the supine position, tourniquet was placed about the ankle. Well padded appropriately aligned. After induction of general anesthesia the foot and ankle were prepped and draped in the usual aseptic manner. The tourniquet was inflated. Incision was made over the right midfoot over the painful prominence dorsally, consistent with the second to third tarsometatarsal joint. The incision was deepened through subcutaneous tissues being careful to identify and retract all vital neurovascular structures. All bleeders were cauterized and ligated as necessary. The capsule was entered dorsally at the joint and this exposed the spurring of the dorsal tarsometatarsal joints. Of note, the tarsometatarsal joints here showed wearing of cartilage surface and a large spur on the cueniform, then smaller spurs around the metatarsal bases. Osteotome and rongeur were used to resect the dorsal joint spurs. A rasp was used to reduce the sharp edges of the bones and create a little indentation in the surface where the largest spur was excised from and this allowed the joint to move easier but also a little security in case of recurrence. The area was irrigated with copious amounts normal sterile saline. While the joint was exposed, 4mg of Dexamethasone Phosphate was placed in the joint space. Deep and subcutaneous closure was closed performed with Vicryl. The tourniquet was deflated and a prompt hyperemic response was seen in the foot. Nylon suture used to close the skin. The foot was dressed with a lightly compressive sterile dressing and splint in alignment. Patient was then placed in a postoperative shoe and transferred to PACU with vital signs stable. Complications: none Condition: stable Disposition: PACU Plan for aftercare: Following a period of postoperative monitoring, the patient be discharged home on written and oral postoperative instructions including keeping the dressing dry and intact, avoiding significant ambulation on the foot, icing and elevating the foot when seated home. DVT prevention techniques have been reviewed. For the 1st postoperative visit the dressing will be changed and close to the 3rd postoperative week we will likely remove the sutures, earlier if needed.
[2018-12-23] MEDS: CEFAZOLIN 2 GM/100 ML FROZ.PIGGY IV (10:22)
--- NOTE | 2018-12-23 10:53 | SUR.OPER ---
Supine on padded OR bed, head on pillow, arms secured on padded arm boards at <90 degrees abduction, legs uncrossed, safety belt at thigh, tape over blanket over lower legs.
[2018-12-23] MEDS: BUPIVACAINE 0.5% (PF) VIAL 30 ML INJ (11:04)
[2018-12-23] MEDS: DEXAMETHASONE 10 MG/ML VIAL 4 MG INJ (11:09)
== END 2018-12-23 13:04 | disposition home or self-care (01) ==
PROVIDERS: PCP Family Medicine; Visit Provider Podiatrist
PROC: 0QBN0ZZ Excision of Right Metatarsal, Open Approach (ICD-10-PCS; CPT 28292; principal; 2018-12-23 10:15)
DX: M19.071 Primary osteoarthritis, right ankle and foot (principal); E66.9 Obesity, unspecified; I10 Essential (primary) hypertension; F32.9 Major depressive disorder, single episode, unspecified; J45.909 Unspecified asthma, uncomplicated
CPT/HCPCS: 28122; J0690; J1100; J2405; J2704; J3010

== ENCOUNTER 2019-01-23 10:14 | Outpatient (RCR) | payer MEDICARE, MEDICAID, SELFPAY ==
--- NOTE | 2019-01-23 13:29 | ST.OPIE ---
Provider Information Visit Care Team Role Provider Type Blanca Bauer MD Primary Care Provider Physician Specialty: Family Practice Address: [address] [place] [address], [id number] Email: [email or web address] Terence Connors MD Attending Provider Physician Specialty: Ear, Nose, Throat Address: [address] [place] [address], [id number] Email: Speech-Language Pathology Initial Evaluation [employer]GER Clinical Swallow Evaluation Start: 01/23/19 12:43 Freq: Status: Active Protocol: Document 01/23/19 12:44 LNK (Rec: 01/23/19 13:27 LNK [id number]) Clinical Swallow Evaluation Session Time Visit Start Time 10:30 Visit Stop Time 11:20 Total Visit Minutes 50 Visit Information Plan of Care Dates 01/23/19-04/25/[address] Strange, ENT Reason for Referral dysphagia Setting Assessment Location Outpatient Care Visit Type Note Type Initial Evaluation Next Note Type Next Note Type Treatment Note Patient Information Identification Type Name Picture History Pt was seen for a clinical assessment of her swallowing and to determine a plan of care. The pt has had an MBS ( 12/19/18) with recommendation to follow up with outpatient dysphagia therapy. the pt is a 73-yr-old female with complains of swallow difficulty for >4 yrs including choking and coughing primarily with foods, occasionally liquids, and frequent sticking sensation at base of throat. She has never required Heimlich maneuver. Hyperactive gag reflex was present during the study, which the pt reports is often typical with oral intake. She must take very small bites well chewed to prevent symptoms. Foods that give her greatest difficulty are rice and crunchy foods such as chips. She consumes rice with most meals, which proves to be very problematic. She reported that sometimes oily food enters the airway, causing her to cough and oil from her nasal cavity. The results of her MBS indicated Moderate Oral and Mild Pharyngeal Dysphagia. The pt presents with moderate oral dysphagia secondary to hyperactive gag reflex and moderately reduced lingual strength and coordination. Evaluation Liquids Trialed Thin Solids Trialed Regular Administration Type Self-Feeding Oral Impairment Moderately Impaired Oral Strategies Upright at 90 degrees Alternate Liquids/Solids Oral Phase Comments Pt accepted the liquid and cracker trials without oral/ lip leakage. She demonstrated a rotary chew/ mastication with mild-moderate oral residue. Liquid wash was able to clear the oral cavity . Prolonged mastication time as pt noted she needs to chew very well to make the food into a mash'. The results of the MBS indicated that the pt demonstrated moderate oral phase dysphagia characterized by tongue rocking,delayed initiation of A/P propulsion and oral residue along tongue body and tongue base. Pharyngeal Impairment Mildly Impaired Pharyngeal Strategies Sitting Upright (90 deg) Supraglottic Swallow Mendelsonn Maneuver Alternate Liquids/Solids Pharyngeal Phase Comments The pt's hyolaryngeal elevation/excursion appeared to be reduced with a delayed swallow initiation - may be related to her hyperactive gag . She appeared to swallow liquids without difficulty, but did note that the cracker felt stuck. Again, a liquid wash appeared to provide relief. The results of the MBS indicated that the pharyngeal phase of her swallow was highly influenced by her gag reflux which occurred frequently. Additionally flash penetration was observed at least once with no residual or aspiration observed. Findings Rehabilitation Potential Good Impressions The pt presented with moderate oral and mild pharyngeal dysphagia as described above. Interestingly, when viewing the MBS with the pt, in the AP view, there was appeared to be s ballooning of the esophagus just below the UES. This enlargement was observed in a left deviation of the entire bolus flow from the pharynx into the esophagus at the onset of the esophageal phase and then closed. Almost immediately after it closed, the ballooning appeared again and then closed again. During our discussion today, the pt had remarked that she has noticed a lump on the left side of her neck just under the mandible. She stated that this lump has increased in size lately. She was encouraged to follow up with her physician regarding the lump Diet Recommendations Liquids Order Thin Diet Order Regular Medication Recommendations As Tolerated Whole in Carrier Aspiration Precautions Recommended Precautions Upright at 90 Degrees Check for Pocketing Supraglottic Swallow Patricia Maneuver Treatment Plan Appropriate for Therapy Yes: Following an extended trip to [place] (~2 months). Therapy Recommendations Dysphagia therapy to increase linguapharyngeal muscle strength for bolus control and to reduce aspiration risk. Dysphagia Goals The pt will be instructed in and will practice swallowing exercises (Patricia and Supraglottic swallows) as prescribed by [employer]GER. Referral to ENT or GI specialist re: the ballooning in the upper esophageal area as well as the deviation of the bolus to the left side of the pharynx. [employer]GER Follow Up when pt returns from her trip Referrals/Other Recommended Referrals GI Consult ENT Consult
--- NOTE | 2019-03-27 10:06 | ST.OPDS ---
Care Team Visit Care Team Role Provider Type Blanca Bauer MD Primary Care Provider Physician Address: [address] [place] [address], [id number] Terence Connors MD Attending Provider Physician Address: [address] [place] [address], [id number] PRESCHOOL ADVISER Treatment Note PRESCHOOL ADVISER Treatment Note Start: 01/23/19 12:43 Freq: Status: Active Protocol: Document 03/27/19 10:01 COLLEEN (Rec: 03/27/19 10:06 DOYLEK [id number]) Speech Pathology Treatment Note Visit Type Note Type Discharge Summary General Information General Information Pt was seen for a clinical assessment of her swallowing on 01/23/19. She had an MBS () with recommendation to follow up with outpatient dysphagia therapy. The pt is a 73-yr-old female with complains of swallow difficulty for >4 yrs including choking and coughing primarily with foods, occasionally liquids, and frequent sticking sensation at base of throat. Assessment Progress Towards Goals Appropriate for Discharge Assessment of Improvement The pt has not been seen since her initial evaluation in January . Will discharge at this time Plan Amount of Therapy Recommended No Further Therapy Frequency of Treatment No Further Therapy Therapy Recommendations Discharge from Speech Therapy
== END 2019-03-28 11:43 | disposition home or self-care (01) ==
LOC: SP 10:14
PROVIDERS: PCP Family Medicine; Visit Provider Otolaryngology Facial Plastic Surgery
DX: R13.19 Other dysphagia (principal)
CPT/HCPCS: 92610

== ENCOUNTER → 2019-04-03 09:37 | Outpatient (CLI) | payer MEDICARE, MEDICAID, SELFPAY ==
[2019-04-03 10:28] LABS: Add Manual Diff / Slide Review NO; Basophils Absolute Auto 100 /uL (0-100); Basophils Percent Auto 0.9 % (0-2); Eosinophils Absolute Auto 600 /uL (0-450); Eosinophils Percent Auto 6.6 % (2-4); Hematocrit 34.7 % (36-46); Hemoglobin 11.4 g/dL (12.0-16.0); Lymphocytes Absolute Auto 4000 /uL (1100-4500); Lymphocytes Percent Auto 43.1 % (25-40); Mean Corpuscular HGB Conc 32.7 % (30-36); Mean Corpuscular Hemoglobin 29.8 PG (26-34); Monocytes Absolute Auto 900 /uL (0-900); Monocytes Percent Auto 9.7 % (3-14); Neutrophils Absolute Auto 3700 /uL (1500-7000); Neutrophils Percent Auto 39.7 % (50-75); Platelet Count 272 X10^3/uL (150-400); Red Blood Cell Count 3.81 X10^6/uL (4.0-5.2); White Blood Cell Count 9.3 X10^3/uL (4.5-11.0)
[2019-04-03 10:42] LABS: Albumin 3.7 g/dL (3.5-5.0); Alkaline Phosphatase 85 U/L (38-126); Aspartate Aminotransferase 21 IU/L (14-36); BUN Creatinine Ratio 21.7 (6-22); Bilirubin Total 0.5 mg/dL (0.2-1.3); Blood Urea Nitrogen 26 mg/dL (7-17); Calcium 9.2 mg/dL (8.4-10.2); Carbon Dioxide 24 mmol/L (22-32); Chloride 107 mmol/L (98-107); Globulin 3.6 g/dL (1.7-4.1); Glucose 111 mg/dL (80-110); HEMOLYSIS < 15 (0-50); Potassium 4.3 mmol/L (3.4-5.1); Sodium 138 mmol/L (137-145); Total Protein 7.3 g/dL (6.3-8.2)
[2019-04-03 11:07] LABS: Thyroid Stimulating Hormone 1.23 uIU/mL (0.47-4.68)
[2019-04-03 11:48] LABS: Alanine Aminotransferase 8 IU/L (9-52); Hemoglobin A1C% w Est Avg Glu 5.5 % (4.0-6.0)
== END ==
PROVIDERS: PCP Family Medicine; Visit Provider Family Medicine
DX: N18.3 Chronic kidney disease, stage 3 (moderate) (principal); E03.9 Hypothyroidism, unspecified; E66.01 Morbid (severe) obesity due to excess calories; R73.03 Prediabetes
CPT/HCPCS: 36415; 80053; 83036; 84443; 85025

== ENCOUNTER → 2019-09-26 07:59 | Outpatient (CLI) | payer MEDICARE, MEDICAID, SELFPAY ==
[2019-09-26 08:38] LABS: Add Manual Diff / Slide Review NO; Basophils Absolute Auto 100 /uL (0-100); Basophils Percent Auto 0.9 % (0-2); Eosinophils Absolute Auto 400 /uL (0-450); Eosinophils Percent Auto 4.8 % (2-4); Hemoglobin 11.1 g/dL (12.0-16.0); Lymphocytes Absolute Auto 3300 /uL (1100-4500); Lymphocytes Percent Auto 44.4 % (25-40); Mean Corpuscular HGB Conc 32.6 % (30-36); Mean Corpuscular Hemoglobin 30.2 PG (26-34); Mean Corpuscular Volume 92.4 fL (80-100); Monocytes Absolute Auto 700 /uL (0-900); Monocytes Percent Auto 10.1 % (3-14); Neutrophils Absolute Auto 2900 /uL (1500-7000); Neutrophils Percent Auto 39.8 % (50-75); Platelet Count 263 X10^3/uL (150-400); Red Blood Cell Count 3.68 X10^6/uL (4.0-5.2); Red Cell Distribution Width 15.7 % (11.6-14.8); White Blood Cell Count 7.4 X10^3/uL (4.5-11.0)
[2019-09-26 09:05] LABS: Alanine Aminotransferase 14 IU/L (<35); Albumin 3.8 g/dL (3.5-5.0); Albumin Globulin Ratio 1.2 (1.0-2.8); Alkaline Phosphatase 81 U/L (38-126); Aspartate Aminotransferase 22 IU/L (14-36); BUN Creatinine Ratio 18.5 (6-22); Bilirubin Total 0.4 mg/dL (0.2-1.3); Blood Urea Nitrogen 24 mg/dL (7-17); Calcium 9.6 mg/dL (8.4-10.2); Carbon Dioxide 25 mmol/L (22-32); Chloride 108 mmol/L (98-107); Cholesterol 183 mg/dL (140-199); Estimated Glomerular Filt Rate 40.2 mL/min (>60); Globulin 3.2 g/dL (1.7-4.1); Glucose 99 mg/dL (80-110); HDL Cholesterol 62 mg/dL (40-60); HEMOLYSIS < 15 (0-50); LDL Cholesterol Calculated 101 mg/dL (<100); Potassium 3.9 mmol/L (3.4-5.1); Sodium 140 mmol/L (137-145); Triglycerides 102 mg/dL (35-150)
[2019-09-27 11:17] LABS: Hemoglobin A1C% w Est Avg Glu 5.7 % (4.0-6.0)
== END ==
PROVIDERS: PCP Family Medicine; Referring Provider Family Medicine; Visit Provider Family Medicine
DX: D64.9 Anemia, unspecified (principal); N18.3 Chronic kidney disease, stage 3 (moderate); E66.01 Morbid (severe) obesity due to excess calories; R73.9 Hyperglycemia, unspecified
CPT/HCPCS: 36415; 80053; 80061; 83036; 85025

== ENCOUNTER → 2019-10-03 10:39 | Outpatient (CLI) | payer MEDICARE, MEDICAID, SELFPAY ==
--- NOTE | 2019-10-03 10:41 | DI.US.S_ITS ---
PROCEDURE: US SOFT TISSUE HEAD AND NECK INDICATIONS: CYST UNDER JAW ON LT SIDE TECHNIQUE: Real-time scanning was performed of the neck region of interest, with image documentation. COMPARISON: None. FINDINGS: [place] shaped, hypoechoic solid appearing subcutaneous mass corresponding to the palpable abnormality measuring 1.4 x 0.4 x 1.7 cm. IMPRESSION: Solid, hypoechoic subcutaneous soft tissue mass with mild vascularity corresponding to the palpable abnormality. Findings are nonspecific and differential would include both benign and malignant etiology. Consider dermatology consultation. Dictated by: Jc GOINS Interpreted: Jina Walker MD on 10/03/2019 at 12:50 Approved by: Jina Walker M.D. on 10/03/2019 at 15:22
== END ==
PROVIDERS: PCP Family Medicine; Referring Provider Family Medicine; Visit Provider Family Medicine
DX: M27.40 Unspecified cyst of jaw (principal)
CPT/HCPCS: 76536

== ENCOUNTER → 2019-10-05 13:48 | Outpatient (CLI) | payer MEDICARE, MEDICAID, SELFPAY ==
--- NOTE | 2019-10-05 13:50 | DI.CT.S_ITS ---
PROCEDURE: CT SOFT TISSUE NECK W CON INDICATIONS: mass under left jaw TECHNIQUE: After the administration of intravenous contrast, 3.0 mm axial sections acquired from the sella to the aortic arch. Additional oblique axial 3.0 mm sections acquired through the pharynx. 3 mm thick coronal and sagittal reformats were generated. For radiation dose reduction, the following was used: automated exposure control. COMPARISON: [facility], , US SOFT TISSUE HEAD AND NECK, 10/03/2019, 11:03. FINDINGS: Image quality: Excellent. Lymph nodes: No enlarged lymph nodes seen throughout the neck. Vessels: Visualized vasculature appears patent. Neck spaces: The oropharynx, nasopharynx, and pharynx demonstrate no mucosal lesions. The vocal cords, false vocal cords, pyriform sinuses, epiglottis, vallecula, and tongue base all appear normal. Extramucosal spaces appear unremarkable. Glands: The parotid and submandibular glands appear normal. Thyroid gland is unremarkable. Miscellaneous: Visualized brain and orbits appear normal. Right lateral subpleural nodule is present measuring approximately 5 mm. Cavitary appearing focus within the right apex is noted measuring 8 mm. At the level of palpable concern within the left lower neck, there is a slight appearance of fat stranding and lobulation. This corresponds to the area of ultrasound abnormality. No discrete mass is clearly identified. Bones: No suspicious bony lesions. Visualized sinuses and mastoids appear unremarkable. IMPRESSION: 1. Mild lobulation within the subcutaneous fat of the left lower neck, corresponding to area of ultrasound concern. No discrete mass is identified. This could represent a focus of underlying lipoma, which has become indistinguishable with the subcutaneous fat. Dermatology consult is recommended. 2. Cavitary-like focus within the right apex. Overall appearance is suggestive of scarring. No priors are available for comparison. Recommend three-month interval followup, in presumed absence of symptoms suggestive of abscess or true cavitary lesion. Dictated by: Jina Walker M.D. on 10/05/2019 at 15:01 Approved by: Jina Walker M.D. on 10/05/2019 at 15:24
== END ==
PROVIDERS: PCP Family Medicine; Referring Provider Family Medicine; Visit Provider Family Medicine
DX: R22.1 Localized swelling, mass and lump, neck (principal)
CPT/HCPCS: 70491; Q9967

== ENCOUNTER → 2019-12-08 09:08 | Outpatient (CLI) | payer MEDICARE, MEDICAID, SELFPAY ==
[2019-12-08 09:35] LABS: BUN Creatinine Ratio 19.2 (6-22); Blood Urea Nitrogen 23 mg/dL (7-17); Calcium 9.2 mg/dL (8.4-10.2); Carbon Dioxide 23 mmol/L (22-32); Chloride 107 mmol/L (98-107); Estimated Glomerular Filt Rate 43.9 mL/min (>60); Glucose 107 mg/dL (80-110); HEMOLYSIS < 15 (0-50); Potassium 4.4 mmol/L (3.4-5.1); Sodium 135 mmol/L (137-145)
--- NOTE | 2019-12-08 09:55 | DI.CT.S_ITS ---
PROCEDURE: CT CHEST W CON INDICATIONS: irregularities on top of lung TECHNIQUE: After the administration of intravenous contrast, 5 mm thick sections acquired from the pulmonary apices to the posterior costophrenic angles. 1 mm axial lung, 5 mm thick coronal and sagittal reformats and 7 mm axial MIP were acquired. For radiation dose reduction, the following was used: automated exposure control, adjustment of mA and/or kV according to patient size. COMPARISON: [facility], CT, CT ABDOMEN PELVIS WITH CONTRAST, 05/31/2017, 14:34. FINDINGS: Image quality: Excellent. Lungs and pleura: There is a 1.1 x 0.8 cm radiodensity in the right apex (series 3 image 36), most likely parenchymal scar. Mild bronchiectasis in right upper lobe. Mild subpleural septal thickening. No acute air space opacities. No pleural effusions or pneumothorax. Central and peripheral airways are patent and normal in caliber. Mediastinum: Heart size is normal. No pericardial effusion. No mediastinal or hilar adenopathy by size criteria. Thoracic aorta and central pulmonary arteries are normal in size. Esophagus is normal in caliber. Small hiatal hernia. Bones and chest wall: No suspicious bony lesions. No vertebral body compression fractures. No axillary or supraclavicular adenopathy by size criteria. Thyroid gland is normal. Abdomen: Visualized upper abdominal solid organs appear normal. Upper abdominal bowel loops are normal in caliber. The bladder is surgically absent. IMPRESSION: 1. A 1.1 x 0.8 cm radiodensity in the right apex, most likely a parenchymal scar. There is mild bronchiectasis in the right upper lobe. 2. Mild subpleural septal thickening 3. Small hiatal hernia. Dictated by: Karely Washington M.D. on 12/08/2019 at 10:42 Approved by: Karely Washington M.D. on 12/08/2019 at 12:42
== END ==
PROVIDERS: PCP Family Medicine; Referring Provider Family Medicine; Visit Provider Family Medicine
DX: Z01.812 Encounter for preprocedural laboratory examination (principal); R91.8 Other nonspecific abnormal finding of lung field; J47.9 Bronchiectasis, uncomplicated; K44.9 Diaphragmatic hernia without obstruction or gangrene
CPT/HCPCS: 36415; 71260; 80048; Q9967

== ENCOUNTER → 2020-04-04 16:06 | Outpatient (CLI) | payer MEDICARE, MEDICAID, SELFPAY ==
--- NOTE | 2020-04-04 16:08 | DI.MRI.S_ITS ---
PROCEDURE: MR CERVICAL SPINE WO CON INDICATIONS: RADICULOPATHY OF CERVICAL REGION TECHNIQUE: Noncontrast sagittal T1 spin echo and T2 fast spin echo, sagittal STIR, foraminal oblique sagittal T2 fast spin echo, and axial gradient echo or T2 fast spin echo through the cervical spine. COMPARISON: [facility], , C-SPINE WITHOUT CONTRAST, 01/19/2017, 8:42. FINDINGS: Image quality: Excellent. Alignment and Curvature: There is grade 1 C5 on C6 retrolisthesis and C6 on C7 anterolisthesis. Spinal alignment is otherwise normal. Bone Marrow: Marrow demonstrates normal overall signal. Spinal Cord: Visualized spinal cord has normal size and signal. No cerebellar tonsillar herniation. Paraspinous Soft Tissues: No paravertebral masses. Prevertebral soft tissues are normal in thickness. C2-C3: Normal appearance. C3-C4: Moderate disc desiccation and height loss. Broad-based disc bulge. Effacement of the anterior CSF space. Moderate canal stenosis. Severe right and moderate left neural foraminal stenosis. The extent of canal narrowing has decreased when compared with the prior MRI dated January 19, 2017. C4-C5: Moderate disc desiccation and height loss. Broad-based disc bulge. Effacement of the CSF space. Severe canal stenosis. Severe right and moderate left neural foraminal narrowing. The extent of canal narrowing is increased when compared with the study from 2016. C5-C6: Moderate disc desiccation and height loss. Broad-based disc bulge. Effacement of the anterior CSF space. Moderate canal stenosis. Severe right and moderate left neural foraminal narrowing. These findings are similar to the 2017 study. C6-C7: Moderate disc desiccation and height loss. Anterolisthesis. No canal stenosis. Mild bilateral neural foraminal narrowing. These findings are unchanged from the prior study. C7-T1: Normal appearance. IMPRESSION: 1. Moderate disc desiccation and height loss throughout the cervical spine slightly increased in severity when compared with the study from January 19, 2017. 2. Increased canal stenosis at C3-4 and C4-5 when compared with the prior study from 2016 3. Severe right neural foraminal narrowing at C3-4, C4-5, and C5-6. Dictated by: Tameka Mitchell M.D. on 04/04/2020 at 16:32 Approved by: Tameka Mitchell M.D. on 04/04/2020 at 16:39
== END ==
PROVIDERS: PCP Family Medicine; Referring Provider Family Medicine; Visit Provider Physical Medicine & Rehabilitation
DX: M54.12 Radiculopathy, cervical region (principal); M48.02 Spinal stenosis, cervical region
CPT/HCPCS: 72141

== ENCOUNTER 2020-04-10 17:35 | Emergency (ER) | payer MEDICARE, MEDICAID, SELFPAY ==
[2020-04-10 17:44] VITALS: BP 143/67; PULSE 96; RESP 20; TEMP 36.4; O2SAT 95
--- NOTE | 2020-04-10 19:24 | ED_ITS ---
HPI - Extremity Injury (Upper) General Chief Complaint: Extremity Injury, Upper Stated Complaint: left elbow injury s/p fall Time Seen by Provider: 04/10/20 18:45 Source: patient Mode of arrival: Ambulatory Limitations: no limitations History of Present Illness HPI narrative: 74F non smoker with history of asthma presents with her family and the chief complaint of a fall with left arm lacerations. She denies head, neck, or back pain. She denies numbness, tingling, or weakness. She denies any bony pain, or left elbow/forearm/shoulder joint pain. She is otherwise well and free of complaint. Patient will need to update her tetanus MD complaint: injury to: left Onset (ago): hour(s) Other Extremity Injury: Left: elbow Other injuries: none Handedness: right Place: home Severity: moderate Relieving factors: rest Exacerbating factors: movement of extremity Context: fall and laceration Associated symptoms: denies other symptoms Treatments prior to arrival: bandage Related Data Home Medications Medication Instructions Recorded Confirmed PreserVision AREDS 1 sgl PO DAILY #0 06/23/16 12/07/19 mecobalamin (vitamin B12) 1,000 1,000 mcg SL DAILY 02/02/18 12/07/19 mcg disintegrating tablet,sublingual Disabled Parking Permit 1 dev MISCELLANEOUS DIRECTED 09/12/18 12/07/19 Previous Rx's Medication Instructions Recorded clobetasol 1 nabil TOPICAL QID #15 gm 03/18/17 alprazolam 1 mg tablet 1 mg PO ONCE #1 tab 10/03/18 varicella-zoster [id number] (PF) 50 0.5 ml IM ONCE #1 each 04/14/19 mcg/0.5 mL IM susp, kit montelukast 10 mg tablet 10 mg PO DAILY #90 tab 07/11/19 dicyclomine 10 mg capsule 10 mg PO QID #120 cap 08/28/19 fluticasone furoate 200 1 inhalation INHALATION DAILY #60 08/28/19 mcg/actuation blister powder for each inhalation hydrochlorothiazide 25 mg tablet 25 mg PO DAILY #90 tab 08/28/19 albuterol sulfate 90 mcg/actuation See Rx Instructions .ROUTE 09/29/19 aerosol inhaler .COMPLEX #108 gram omeprazole 40 mg capsule,delayed 40 mg PO BID #180 cap 12/07/19 release gabapentin 600 mg tablet See Rx Instructions .ROUTE 01/26/20 .COMPLEX #270 tab levothyroxine 112 mcg tablet See Rx Instructions .ROUTE 01/26/20 .COMPLEX #90 tab metformin 500 mg tablet See Rx Instructions .ROUTE 01/26/20 .COMPLEX #180 tab fluoxetine 40 mg capsule 40 mg PO DAILY #90 cap 02/13/20 cephalexin [Keflex] 500 mg PO QID 7 Days #28 cap 04/10/20 Allergies Allergy/AdvReac Type Severity Reaction Status Date / Time No Known Drug Allergies Allergy Verified 12/07/19 10:00 Review of Systems Constitutional Constitutional: Denies chills, Denies fatigue, Denies fever(s), Denies frequent falls, Denies lethargy and Denies weakness Eyes Eyes: Denies change in vision, Denies eye discharge, Denies irritation and Denies loss of vision ENT Ears, Nose, Mouth, and Throat: Denies change in voice, Denies dizziness, Denies neck pain, Denies sore throat and Denies throat swelling Cardiovascular Cardiovascular: Denies chest pain, Denies irregular heart rhythm, Denies lightheadedness, Denies palpitations, Denies dyspnea, Denies dyspnea on exertion and Denies orthopnea Respiratory Respiratory: Denies cough, Denies dyspnea, Denies dyspnea on exertion and Denies wheezing Gastrointestinal Gastrointestinal: Denies abdominal pain, Denies change in bowel habits, Denies diarrhea, Denies nausea and Denies vomiting Musculoskeletal Musculoskeletal: Denies neck pain and Denies numbness Integumentary/Breasts Skin/Breast: Denies pruritus, Denies erythema, Denies rash and Reports wounds Neurologic Neurologic: Denies behavioral changes, Denies confusion, Denies dizziness, Denies frequent falls, Denies loss of vision, Denies numbness and Denies weakness Psychiatric Psychiatric: Denies anxiety, Denies behavioral changes, Denies confusion, Denies depression, Denies homicidal ideation and Denies suicidal ideation Endocrine Endocrine: Denies fatigue, Denies flushing and Denies palpitations Hematologic/Lymphatic Hematologic/Lymphatic: Denies easy bruising Allergic/Immunologic Allergic/Immunologic: Denies urticaria, Denies throat swelling and Denies wheezing Patient History Medical History Asthma (Chronic ~196) Burning sensation of feet (Chronic) Cataract (Resolved) Chronic headaches (Chronic) 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) Eczema (Chronic) Foot pain (Chronic) Hyperthyroidism (Chronic) Neck stiffness (Chronic) Prediabetes (Acute) Shoulder pain (Chronic) Surgical History Anesthesia (Resolved) History of carpal tunnel repair (Resolved 2007) History of cataract removal with insertion of prosthetic lens (Resolved) History of knee replacement (Resolved 2009) Family History Brother Age: 63 Prostate cancer Father Cancer Diabetes mellitus Hypertension Stroke Lung cancer Mother Heart disease Hypertension Heart attack Psoriasis Sister Age: 58 Brain tumor Cancer Social History household members: children Smoking Status: Never smoker Smoking Status: Never smoker alcohol intake frequency: 0-2 drinks per day Substance Use Type: does not use Exam Narrative Exam Narrative: GEN: AOx3 and in mild distress EYES: Pupils are equal, round, and reactive to light and accommodation. Extraoccular muscles are intact bilaterally. There is no subconjunctival hemorrhage or exudate. CHEST: Lungs are clear to auscultation bilaterally and free of wheezes, rales, or rhonchi. Heart rate is regular rhythm, there are no murmurs, clicks, rubs, or gallops. There is no chest wall tenderness. ABD: Abdomen is soft and nontender. There is no guarding or rebound. Bowel sounds are normal in all 4 quadrants. There is no mass or organomegaly. EXT: Full painless ROM of all extremities with no loss of sensation or strength. SKIN: 2 deep lacerations on left lateral foream. Both measuring about 8cm and deep with exposed sub Q fat, but no muscle involvement. Bleeding present. Warm, pink, and dry. No erythema or rash Initial Vital Signs Initial Vital Signs: Vital Signs Temperature 97.6 F 04/10/20 17:44 Pulse Rate 96 H 04/10/20 17:44 Respiratory Rate 20 04/10/20 17:44 Blood Pressure 143/67 H 04/10/20 17:44 Pulse Oximetry 95 04/10/20 17:44 Procedures Laceration Repair Laceration 1: Site: upper extremity Side (If applicable): left Size (cm): 8 Description: linear Local Anesthetic: lidocaine 1% and with epi Amount of anesthesia used (mL): 5 Skin layer closed with: nylon Size (cm): 5-0 Number of sutures: 12 Technique: simple, interrupted Subcutaneous layer closed with: vicryl Size: 4-0 Number of sutures: 1 Laceration 2: Site: upper extremity Side (If applicable): left Size (cm): 8 Description: irregular Depth: simple, single layer Local Anesthetic: lidocaine 1% and with epi Amount of anesthesia used (mL): 6 Pre-repair: wound explored Skin layer closed with: nylon Size (cm): 5-0 Number of sutures: 8 Technique: simple, interrupted Number of sutures: 11 Course Orders Ordered: Discontinued Medications Bacitracin (Bacitracin) 3 applic TOP NOW ONE Stop: 04/10/20 20:46 Cefazolin Sodium (Keflex 250 Mg Prepack) 1 bottle MISC SEEINSTR ONE Stop: 04/10/20 20:32 Last Admin: 04/10/20 20:36 Dose: 1 bau Documented by: CEDRIC Diphtheria/Tetanus/Acell Pertussis (Adacel) 0.5 ml IM .ONCE ONE Stop: 04/10/20 19:31 Last Admin: 04/10/20 19:38 Dose: 0.5 ml Documented by: BELINDA Lidocaine/Sodium Bicarbonate (Buffered Lidocaine 10 Ml Syr) 10 ml INJ NOW ONE Stop: 04/10/20 19:31 Last Admin: 04/10/20 19:38 Dose: 10 ml Documented by: BELINDA Vital Signs Vital signs: Vital Signs - 8 hr 04/10/20 17:44 04/10/20 19:45 04/10/20 21:11 Temperature 97.6 F Pulse Rate 96 H 72 Pulse Rate [Left Radial] 70 Respiratory Rate 20 18 Blood Pressure 143/67 H 142/72 H Pulse Oximetry 95 98 Discharge Plan Departure Patient Disposition: Home Clinical Impression: Laceration Discharge Date/Time: 04/10/20 20:55 Instructions: DI for Laceration Repair -- Simple Activity Restrictions/Additional Instructions: Please keep the wound clean and dry to the best of your ability. Please monitor for signs of infection such as redness to the skin or increasing pain. Have the sutures removed by your doctor in about 7-10 days. If you are unable to get into your doctor, we would be happy to remove the sutures in that same timeframe. Prescriptions: New cephalexin [Keflex] 500 mg capsule 500 mg PO QID 7 Days Qty: 28 RF: 0 No Action omeprazole 40 mg capsule,delayed release(DR/EC) 40 mg PO BID Qty: 180 RF: 3 PreserVision AREDS 1 EACH capsule 1 sgl PO DAILY Qty: 0 RF: 0 clobetasol 0.05 % gel 1 nabil Topical QID Qty: 15 RF: 0 mecobalamin (vitamin B12) 1,000 mcg tablet,disintegrating 1,000 mcg SL DAILY RF: 0 alprazolam 1 mg tablet 1 mg PO ONCE Qty: 1 RF: 0 Shingrix (PF) 50 mcg/0.5 mL suspension for reconstitution 0.5 ml IM ONCE Qty: 1 RF: 0 montelukast [Singulair] 10 mg tablet 10 mg PO DAILY Qty: 90 RF: 3 dicyclomine 10 mg capsule 10 mg PO QID Qty: 120 RF: 3 Arnuity Ellipta 200 mcg/actuation blister with device 1 inhalation INHALATION DAILY Qty: 60 RF: 6 hydrochlorothiazide 25 mg tablet 25 mg PO DAILY Qty: 90 RF: 3 albuterol sulfate [Ventolin HFA] 90 mcg/actuation HFA aerosol inhaler See Rx Instructions .ROUTE .COMPLEX Qty: 108 RF: 3 gabapentin 600 mg tablet See Rx Instructions .ROUTE .COMPLEX Qty: 270 RF: 0 metformin 500 mg tablet See Rx Instructions .ROUTE .COMPLEX Qty: 180 RF: 0 levothyroxine 112 mcg tablet See Rx Instructions .ROUTE .COMPLEX Qty: 90 RF: 0 fluoxetine 40 mg capsule 40 mg PO DAILY Qty: 90 RF: 1 Disabled Parking Permit 1 dev miscellaneous DIRECTED RF: 0 Referrals: Blanca Bauer MD [Primary Care Provider] -
[2020-04-10] MEDS: TET,DIPH,PERTUSS(ACELL),VAC/PF 0.5 ML SYRINGE IM (19:38)
[2020-04-10] MEDS: LIDO 1%/SOD BICARB 8.4% (10ML) 10 ML SYRINGE INJ (19:38)
[2020-04-10 19:45] VITALS: PULSE 70
[2020-04-10] MEDS: cephALEXin 250 MG PREPACK 1 BOTTLE MISC (20:36)
--- NOTE | 2020-04-10 21:09 | PC.NURSE ---
bacitracin to all wounds on left arm before dressing.steri strips to small triangular shaped skin tear on left forearm.tolerated well.
[2020-04-10 21:11] VITALS: BP 142/72; PULSE 72; RESP 18; O2SAT 98
== END 2020-04-10 20:55 | disposition home or self-care (01) ==
PROVIDERS: Emergency Provider Emergency Medicine; PCP Family Medicine
DX: S41.112A Laceration without foreign body of left upper arm, initial encounter (principal); W19.XXXA Unspecified fall, initial encounter; Z23 Encounter for immunization
CPT/HCPCS: 12005; 90471; 99283; 99284; 90715

== ENCOUNTER → 2020-04-29 15:07 | Outpatient (CLI) | payer MEDICARE, SELFPAY | PROVIDERS: PCP Family Medicine; Visit Provider Family Medicine | DX: R39.15 Urgency of urination (principal) | CPT/HCPCS: 87086 ==

== ENCOUNTER → 2020-05-08 09:06 | Outpatient (CLI) | payer MEDICARE, SELFPAY ==
[2020-05-08 09:58] LABS: BUN Creatinine Ratio 15.7 (6-22); Blood Urea Nitrogen 19 mg/dL (7-17); Calcium 8.9 mg/dL (8.4-10.2); Carbon Dioxide 26 mmol/L (22-32); Chloride 108 mmol/L (98-107); Estimated Glomerular Filt Rate 43.5 mL/min (>60); Glucose 82 mg/dL (80-110); HEMOLYSIS < 15 (0-50); Hemoglobin A1C% w Est Avg Glu 5.9 % (4.0-6.0); Potassium 3.7 mmol/L (3.4-5.1); Sodium 138 mmol/L (137-145)
[2020-05-08 10:39] LABS: Thyroid Stimulating Hormone 1.71 uIU/mL (0.47-4.68)
== END ==
PROVIDERS: PCP Family Medicine; Referring Provider Family Medicine; Visit Provider Family Medicine
DX: D64.9 Anemia, unspecified (principal); E03.9 Hypothyroidism, unspecified; N18.3 Chronic kidney disease, stage 3 (moderate); R53.83 Other fatigue; R73.03 Prediabetes
CPT/HCPCS: 36415; 80048; 83036; 84443

== ENCOUNTER → 2020-05-14 09:38 | Outpatient (CLI) | payer MEDICARE, SELFPAY ==
[2020-05-15 07:49] LABS: COVID19 Sendout Not Detected (Not Detect)
== END ==
PROVIDERS: PCP Family Medicine; Visit Provider Physician Assistant
DX: Z11.59 Encounter for screening for other viral diseases (principal)
CPT/HCPCS: 87635

== ENCOUNTER → 2020-05-17 11:07 | Outpatient (CLI) | payer MEDICARE, MEDICAID, SELFPAY ==
--- NOTE | 2020-05-22 09:04 | PM.PFT.1 ---
Pulmonary Function Test Referral & Results Date Patient Seen: 05/17/20 Requesting provider: Blanca Bauer Results: The spirometry demonstrates an FVC of 2.12 L which is 71% of predicted. The FEV1 was measured at 1.29 L which is 57% of predicted. The FEV1/FVC ratio was 61 which is 80% of predicted. Following the administration of bronchodilator there was a 22% improvement in FEV1 and a 64% improvement in FEF 25-75%. Lung volumes show an SVC of 2.58 L which is 89% of predicted. The diffusing capacity was measured at 15.22 which is 59% of predicted. The maximum voluntary ventilation was reduced Interpretation: This study demonstrates moderately severe obstructive lung disease based on reduction FEV1 and slight reduction in FEV1/FVC ratio. There is evidence of significant benefit following bronchodilator There may also be mild restrictive lung disease based on minimal reduction in SVC There is also moderate reduction in diffusing capacity suggesting element of disease at the capillary alveolar level Altogether this is consistent with a diagnosis of COPD
== END ==
PROVIDERS: PCP Family Medicine; Referring Provider Family Medicine; Visit Provider Family Medicine
DX: J45.909 Unspecified asthma, uncomplicated (principal); R06.02 Shortness of breath
CPT/HCPCS: 94060; 94726; 94729

== ENCOUNTER → 2020-08-27 13:13 | Outpatient (CLI) | payer MEDICARE, SELFPAY ==
[2020-08-27 13:40] LABS: Add Manual Diff / Slide Review NO; Basophils Absolute Auto 0 /uL (0-100); Basophils Percent Auto 0.9 % (0-2); Eosinophils Absolute Auto 300 /uL (0-450); Eosinophils Percent Auto 5.7 % (2-4); Hematocrit 28.9 % (36-46); Hemoglobin 9.3 g/dL (12.0-16.0); Lymphocytes Absolute Auto 1200 /uL (1100-4500); Mean Corpuscular HGB Conc 32.4 % (30-36); Mean Corpuscular Hemoglobin 28.3 PG (26-34); Mean Corpuscular Volume 87.3 fL (80-100); Monocytes Absolute Auto 400 /uL (0-900); Neutrophils Absolute Auto 2800 /uL (1500-7000); Neutrophils Percent Auto 58.4 % (50-75); Platelet Count 203 X10^3/uL (150-400); Red Blood Cell Count 3.31 X10^6/uL (4.0-5.2); White Blood Cell Count 4.8 X10^3/uL (4.5-11.0)
[2020-08-29 18:07] LABS: Alder IgE <0.10 kU/L (Class 0); Alternaria alternata IgE <0.10 kU/L (Class 0); Aspergillus fumigatus IgE 1.22 kU/L (Class II); Box Elder IgE <0.10 kU/L (Class 0); Cladosporium herbarum IgE <0.10 kU/L (Class 0); Cockroach IgE <0.10 kU/L (Class 0); Cottonwood IgE <0.10 kU/L (Class 0); D farinae IgE 3.82 kU/L (Class III); D pteronyssinus IgE 3.08 kU/L (Class III); Dog Dander IgE 0.13 kU/L (Class 0/I); Elm Tree IgE <0.10 kU/L (Class 0); Immunoglobulin E 41 IU/mL (6-495); Mountain Cedar IgE <0.10 kU/L (Class 0); Mouse Urine Proteins IgE <0.10 kU/L (Class 0); Nettle IgE <0.10 kU/L (Class 0); Oak Tree IgE <0.10 kU/L (Class 0); Pigweed, Common IgE <0.10 kU/L (Class 0); Ragweed, Short <0.10 kU/L (Class 0); Sheep Sorrel IgE <0.10 kU/L (Class 0); Silver Birch IgE <0.10 kU/L (Class 0); Timothy Grass IgE <0.10 kU/L (Class 0); Walnut Allery IgE < 0.10 kU/L (Class 0); White ash IgE <0.10 kU/L (Class 0)
[2020-09-12 09:28] LABS: Cat Dander IgE 0.55
== END ==
PROVIDERS: PCP Family Medicine; Referring Provider Family Medicine; Visit Provider Internal Medicine Critical Care Medicine
DX: J45.40 Moderate persistent asthma, uncomplicated (principal)
CPT/HCPCS: 36415; 82785; 85025; 86003

== ENCOUNTER 2020-09-05 13:26 | Emergency (ER) | payer MEDICARE, MEDICAID, SELFPAY ==
[2020-09-05 13:43] VITALS: BP 122/61; PULSE 88; RESP 15; TEMP 36.9; O2SAT 99; BMI 36.2
[2020-09-05 14:47] LABS: COVID19 -Nasal RAPID Negative (Negative)
--- NOTE | 2020-09-05 15:09 | ED.GENADULT ---
HPI - General Adult General Chief complaint: Upper Respiratory Symptoms Stated complaint: fatigue,shortness of breath,no taste Time Seen by Provider: 09/05/20 14:56 Source: patient and family (Daughter) Mode of arrival: Wheelchair Limitations: no limitations History of Present Illness HPI narrative: This is a very pleasant 74-year-old female comes to the emergency department with complaint of increasing shortness of breath over the past 3 days. 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 She is on multiple medications including albuterol, steroid inhaler, she has taken prednisone. She does take medication for hypertension and anxiety. Patient does not have any known cardiac disease. Her main concern today was COVID is they have had multiple individuals from COVID over the last year. Patient has not had fevers or chills. She does note that she had loss of taste and smell but states that that was 1-2 years ago, before the pandemic and started. She does not currently feel short of breath or have chest pain or pressure. She has noted that in the last year she has gone from being able to walk several miles to a much shorter distance. She has also noted that she has been feeling lightheaded. Over the last several days she has even felt short of breath walking to the bathroom. She has had occasional episodes of chest pressure. She also had some nausea with some of these episodes. She denies any issues with bowel movements. She denies any melena or hematochezia. She does not describe any diaphoresis. She has not noted any swelling in her extremities. She has had any cardiac workup that she is aware. No tobacco, no alcohol or illicit. She did see her professor of floriculture last week and had some lab work ordered which was reviewed. Related Data Home Medications Medication Instructions Recorded Confirmed PreserVision AREDS 1 sgl PO DAILY #0 06/23/16 08/14/20 mecobalamin (vitamin B12) 1,000 1,000 mcg SL DAILY 02/02/18 08/14/20 mcg disintegrating tablet,sublingual Disabled Parking Permit 1 dev MISCELLANEOUS DIRECTED 09/12/18 08/14/20 Previous Rx's Medication Instructions Recorded clobetasol 1 nabil TOPICAL QID #15 gm 03/18/17 alprazolam 1 mg tablet 1 mg PO ONCE #1 tab 10/03/18 fluticasone furoate 200 1 inhalation INHALATION DAILY #60 08/28/19 mcg/actuation blister powder for each inhalation omeprazole 40 mg capsule,delayed 40 mg PO BID #180 cap 12/07/19 release albuterol sulfate 90 mcg/actuation See Rx Instructions .ROUTE 04/19/20 aerosol inhaler .COMPLEX #108 gram gabapentin 600 mg tablet See Rx Instructions .ROUTE 04/19/20 .COMPLEX #270 tab levothyroxine 112 mcg tablet See Rx Instructions .ROUTE 04/19/20 .COMPLEX #90 tab prednisone 20 mg tablet 20 mg PO DAILY #5 tab 06/25/20 solifenacin 5 mg tablet 5 mg PO DAILY #30 tab 07/03/20 fluoxetine 40 mg capsule See Rx Instructions .ROUTE 07/19/20 .COMPLEX #90 cap hydrochlorothiazide 25 mg tablet See Rx Instructions .ROUTE 07/19/20 .COMPLEX #90 tab montelukast 10 mg tablet See Rx Instructions .ROUTE 07/19/20 .COMPLEX #90 tab salmeterol 50 mcg/dose blister 1 inh INHALATION BID #60 each 07/29/20 powder for inhalation ipratropium bromide 17 See Rx Instructions .ROUTE 08/05/20 mcg/actuation HFA aerosol inhaler .COMPLEX #12.9 g estradiol 1 g VAGINAL 2XW #42.5 g 08/14/20 dicyclomine 10 mg capsule See Rx Instructions .ROUTE 08/16/20 .COMPLEX #120 cap Allergies Allergy/AdvReac Type Severity Reaction Status Date / Time No Known Drug Allergies Allergy Verified 09/05/20 13:46 Review of Systems Review of Systems ROS Unobtainable: All systems reviewed & are unremarkable except as noted in HPI and below Patient History Medical History Arthritis Asthma (~1962) Burning sensation of feet Cataract Chronic headaches COPD (chronic obstructive pulmonary disease) Depression 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 Eczema Foot pain Hyperthyroidism Lower urinary tract symptoms (LUTS) Neck stiffness Postmenopausal atrophic vaginitis Prediabetes Shoulder pain Urge incontinence Surgical History Anesthesia History of carpal tunnel repair (2007) History of cataract removal with insertion of prosthetic lens History of knee replacement (2009) Family History Brother Age: 64 Prostate cancer Father Cancer Diabetes mellitus Hypertension Stroke Lung cancer Mother Heart disease Hypertension Heart attack Psoriasis Sister Age: 59 Brain tumor Cancer Social History marital status: number of children: 2 household members: children Smoking Status: Never smoker alcohol intake: never caffeine: Yes Smoking Status: Never smoker alcohol intake frequency: 0-2 drinks per day Substance Use Type: does not use Exam Narrative Exam Narrative: GEN: well nourished, well appearing female, alert and oriented x 3, patient appears to be in mild distress. HEENT: Atraumatic, pupils are equal round reactive to light, extraocular movements are intact, nares are clear, TMs are clear with no fluid, there is no conjunctival pallor. Throat is clear without any exudates, erythema, tonsillar enlargement or uvular deviation HEART: Regular rate and rhythm without murmur, clicks, rubs. pulses are equal in upper and lower extremities LUNGS:Lungs clear to auscultation, no wheezes, rales, crackles, chest moves symmetrically, no tachypnea accessory muscle use. Patient speaks in full sentences. ABD:bowel sounds normal, soft, non-tender, no guarding, rebound, rigidity, no masses noted, no hepatosplenomegaly :No CVA tenderness MSCL: Non-tender, full range of motion, normal gait NEURO:CN 2-12 intact, sensation normal SKIN: No rash, erythema, petechiae or skin changes noted Initial Vital Signs Initial Vital Signs: Vital Signs Temperature 98.5 F 09/05/20 13:43 Pulse Rate 88 09/05/20 13:43 Respiratory Rate 15 09/05/20 13:43 Blood Pressure 122/61 09/05/20 13:43 Pulse Oximetry 99 09/05/20 13:43 Course Orders Ordered: ED Orders 09/05/20 13:50 COVID19 Stat 09/05/20 15:45 EKG-12 Lead Stat Consultations Consultation #1: Spoke with Dr. Bonilla, discussed that I wanted to do further workup for the patient but she was reluctant. He will facilitate further workup as outpatient with Dr. Bauer. Time: 17:38 Vital Signs Vital signs: Vital Signs - 8 hr 09/05/20 13:43 09/05/20 16:02 09/05/20 16:12 Temperature 98.5 F Pulse Rate 88 84 82 Respiratory Rate 15 Blood Pressure 122/61 136/90 136/90 Pulse Oximetry 99 98 98 Medical Decision Making Lab Data Labs: Lab Results 09/05/20 Range/Units 13:50 SARS-CoV-2 (PCR) Negative (Negative) ECG Data Attestation: I personally reviewed and interpreted this ECG as follows: Prior ECG tracings: available for review Interpretation: Sinus rhythm left anterior fascicular block, rate 80, P are 136 QRS of 90 and QTC of 445. No acute ST changes appreciated. Patient has prior from 12/12/2018 available appears similar. MDM Narrative Medical decision making narrative: 74-year-old female comes in with complaint of increasing shortness of breath that has rapidly worsened over the past 3 days. She also relates some sensation of chest pain and nausea with these episodes. She has also had decreased exercise capacity over the past year. Noted on her labs from last year in comparison to the 27 of August she dropped her hemoglobin from 11-9.3. No clear source of bleeding although patient defers further workup in the department. Patient did have allergy testing which shows some changes. Negative here in the department. I discussed with patient I would link to evaluate her little further for cardiac source as well as the decrease in her hemoglobin. She is amenable to an EKG but does not wish to stay in the department for further workup. She is happy to follow up with her primary care physician and her daughters at bedside who is happy to facilitate as well. We did discuss that I have some concerns that her lung pathology may be masking a possible cardiac cause or even a symptomatic anemia but patient continues to politely defer. Discharge Plan Departure Patient Disposition: Home Clinical Impression: Anemia, Dyspnea Instructions: Anemia Activity Restrictions/Additional Instructions: Follow up with Dr. Bauer. I would recommend having your labs checked today or tomorrow including checking a hemoccult or your stool for blood. Your lab from the shows a drop in your hemoglobin or anemia. This may also cause or exacerbate your shortness of breath. Cardiac or heart disease can also sometimes cause worsening shortness of breath. I would recommend you continue home medications currently. Return to the ER for fevers greater 100.4 F, rapidly worsening shortness of breath, persistent lightheadedness or passing out, new chest pain or pressure, persistent vomiting, black or bloody stools or other new or concerning symptoms. Prescriptions: No Action prednisone 20 mg tablet 20 mg PO DAILY Qty: 5 RF: 0 omeprazole 40 mg capsule,delayed release(DR/EC) 40 mg PO BID Qty: 180 RF: 3 PreserVision AREDS 1 EACH capsule 1 sgl PO DAILY Qty: 0 RF: 0 clobetasol 0.05 % gel 1 nabil Topical QID Qty: 15 RF: 0 mecobalamin (vitamin B12) 1,000 mcg tablet,disintegrating 1,000 mcg SL DAILY RF: 0 alprazolam 1 mg tablet 1 mg PO ONCE Qty: 1 RF: 0 Arnuity Ellipta 200 mcg/actuation blister with device 1 inhalation INHALATION DAILY Qty: 60 RF: 6 albuterol sulfate [Ventolin HFA] 90 mcg/actuation HFA aerosol inhaler See Rx Instructions .ROUTE .COMPLEX Qty: 108 RF: 3 gabapentin 600 mg tablet See Rx Instructions .ROUTE .COMPLEX Qty: 270 RF: 3 levothyroxine 112 mcg tablet See Rx Instructions .ROUTE .COMPLEX Qty: 90 RF: 3 solifenacin 5 mg tablet 5 mg PO DAILY Qty: 30 RF: 1 hydrochlorothiazide 25 mg tablet See Rx Instructions .ROUTE .COMPLEX Qty: 90 RF: 0 montelukast 10 mg tablet See Rx Instructions .ROUTE .COMPLEX Qty: 90 RF: 0 fluoxetine 40 mg capsule See Rx Instructions .ROUTE .COMPLEX Qty: 90 RF: 0 Serevent Diskus 50 mcg/dose blister with device 1 inh INHALATION BID Qty: 60 RF: 2 ipratropium bromide [Atrovent HFA] 17 mcg/actuation HFA aerosol inhaler See Rx Instructions .ROUTE .COMPLEX Qty: 12.9 RF: 0 dicyclomine 10 mg capsule See Rx Instructions .ROUTE .COMPLEX Qty: 120 RF: 0 Disabled Parking Permit 1 dev miscellaneous DIRECTED RF: 0 estradiol 0.01 % (0.1 mg/gram) cream 1 g vaginal 2XW Qty: 42.5 RF: 3 Referrals: Blanca Bauer MD [Primary Care Provider] -
[2020-09-05 16:02] VITALS: BP 136/90; PULSE 84; O2SAT 98
[2020-09-05 16:12] VITALS: BP 136/90; PULSE 82; O2SAT 98
== END 2020-09-05 16:13 | disposition home or self-care (01) ==
PROVIDERS: Emergency Provider Emergency Medicine; PCP Family Medicine
DX: R06.00 Dyspnea, unspecified (principal); D64.9 Anemia, unspecified; R07.9 Chest pain, unspecified; R11.0 Nausea; J44.9 Chronic obstructive pulmonary disease, unspecified; I10 Essential (primary) hypertension; F41.9 Anxiety disorder, unspecified; E05.90 Thyrotoxicosis, unspecified without thyrotoxic crisis or storm; Z20.822 Contact with and (suspected) exposure to COVID-19
CPT/HCPCS: 87635; 93005; 99281; 99283; C9803

== ENCOUNTER → 2020-09-25 10:07 | Outpatient (CLI) | payer MEDICARE, MEDICAID, SELFPAY ==
[2020-09-25 10:51] LABS: Add Manual Diff / Slide Review NO; Basophils Absolute Auto 0 /uL (0-100); Basophils Percent Auto 0.7 % (0-2); Eosinophils Absolute Auto 300 /uL (0-450); Eosinophils Percent Auto 3.8 % (2-4); Hematocrit 31.6 % (36-46); Lymphocytes Absolute Auto 1900 /uL (1100-4500); Lymphocytes Percent Auto 27.4 % (25-40); Mean Corpuscular HGB Conc 31.7 % (30-36); Mean Corpuscular Hemoglobin 27.6 PG (26-34); Mean Corpuscular Volume 87.3 fL (80-100); Monocytes Absolute Auto 600 /uL (0-900); Neutrophils Absolute Auto 4100 /uL (1500-7000); Neutrophils Percent Auto 59.1 % (50-75); Platelet Count 252 X10^3/uL (150-400); Red Blood Cell Count 3.62 X10^6/uL (4.0-5.2); Red Cell Distribution Width 16.2 % (11.6-14.8)
[2020-09-25 11:23] LABS: HEMOLYSIS < 15 (0-50); Iron 33 ug/dL (37-170)
[2020-09-25 11:34] LABS: Percent Iron Saturation 8 % (15-50); Total Iron Binding Capacity 406 ug/dL (265-497); Transferrin 307 mg/dL (206-381)
== END ==
PROVIDERS: PCP Family Medicine; Referring Provider Family Medicine; Visit Provider Family Medicine
DX: D64.9 Anemia, unspecified (principal)
CPT/HCPCS: 36415; 83540; 83550; 85025; 99213

== ENCOUNTER → 2020-09-27 09:50 | Outpatient (CLI) | payer MEDICARE, MEDICAID, SELFPAY ==
[2020-09-27 11:36] LABS: COVID19 -Nasal RAPID Negative (Negative)
== END ==
PROVIDERS: PCP Family Medicine; Visit Provider Surgery
DX: Z01.812 Encounter for preprocedural laboratory examination (principal); Z20.822 Contact with and (suspected) exposure to COVID-19
CPT/HCPCS: 87635; C9803

== ENCOUNTER 2020-09-30 06:48 | Day surgery (SDC) | payer MEDICARE, MEDICAID, SELFPAY ==
[2020-09-30] VITALS (8 sets, daily range): BP systolic 98–133; BP diastolic 38–74; PULSE 66–88; RESP 13–18; TEMP 36.5–36.7; O2SAT 97–99; BMI 36.2
--- NOTE | 2020-09-30 | PATH_ITS ---
[facility] Accession Number: [id number] . 01 Material submitted: . colon - RANDOM COLON BIOPSIES . 01 Clinical history: . SDC . 02 Diagnosis: Random Colon, Biopsies: Colonic mucosa with melanosis coli and no other significant diagnostic abnormality. Negative for active, chronic, and microscopic colitis. Negative for dysplasia or malignancy. . [facility] 10/02/2020 1134 Local . 02 Electronically signed: . Nuzhat Hinkle MD, Pathologist NPI- [id number] . 01 Gross description: . The specimen is received in formalin, labeled random colon and consists of three box-brown fragments of soft tissue measuring 0.5 x 0.5 x 0.2 m in aggregate. The specimen is entirely submitted in cassette A1. (EA:[id number]) /MRV 10/01/2020 1710 Local . 02 Pathologist provided ICD-10: D64.9 . 02 CPT . 825776 Performed at: 01 [facility] [address], [place], [place] [id number] MD Keshav Saucedo MD Phone: [phone] Performed at: 02 [facility] [address] [place], [place] [id number] MD Nuzhat Hinkle MD Phone: [phone]
[2020-09-30] MEDS: LACTATED RINGERS 1,000 ML 200 ML IV (07:12)
--- NOTE | 2020-09-30 07:44 | PM.PREOP ---
Pre-operative Note Interval Note History & Physical reviewed/Exam performed by Physician: Yes Changes to H&P: No
[2020-09-30] MEDS: fentaNYL 250 MCG/5 ML INJ IV (08:00)
[2020-09-30] MEDS: MIDAZOLAM 5 MG/5 ML VIAL IV (08:03)
--- NOTE | 2020-09-30 08:13 | PM.OP.ENDO ---
Operative Date/Time/Diagnoses Date of procedure: 09/30/20 Time of procedure: 08:13 Pre-op diagnosis: anemia Post-op diagnosis: other (possible colitis) Procedure & Clinicians Study performed: colonoscopy Same procedure as scheduled: Yes Indications: 74F with anemia presents for colonoscopy Surgeon: Duane Valente Procedure Notes SCOAP/Timeout: performed Procedure in detail: Medications: Conscious sedation using 5mg IV midazolam and 150mcg IV of fentanyl The history and physical was performed/updated and the patient is ASA class is 2. The procedure was discussed in detail with the patient. Potential risks complications including infection, bleeding, missed diagnosis, perforation, need for surgery, and were explained. Their questions were answered and informed consent was obtained. Patient was brought to the procedure room and placed standard monitoring equipment. The patient's vital signs were monitored continuously throughout the entire procedure. Prior to starting time-out was performed. The patient was placed in the left lateral recumbent position. Procedural sedation was administered. Examination began with a thorough inspection of the perianal area there was no evidence of fissures, fistulae, external hemorrhoids or cutaneous malignancy. The colonoscopy scope was then placed into the anal canal and was advanced to the cecum, which was identified by the ileocecal valve, the appendiceal orifice and the confluence of the taenia. The scope was then slowly withdrawn examining colon thoroughly in all directions, irrigating it of any residual stool. no masses or polyps 1 mm white/yellow spot throughout the colon very friable mucosa random biopsies were taken The patient tolerated the procedure well. They will be discharged once criteria are met. The prep was of good/excellent quality. The withdrawl time was * minutes. The sedation time was * minutes. Scope withdrawal time: 6 Findings: colitis Specimen(s): other (Random colonic biopsies) Complications: none Impression: Possible colitis Post-procedure Recommendations: Will call with biopsy results Disposition: same day surgery
--- NOTE | 2020-09-30 08:44 | SUR.PHASEII ---
Pt stable and wanting to sleep for a while. Taking po fluids well, denies pain or nausea. No c/o
== END 2020-09-30 09:15 | disposition home or self-care (01) ==
PROVIDERS: PCP Family Medicine; Referring Provider Surgery; Visit Provider Surgery
PROC: 0DJD8ZZ Inspection of Lower Intestinal Tract, Via Natural or Artificial Opening Endoscopic (ICD-10-PCS; CPT 45378; principal; 2020-09-30 07:45)
DX: D64.9 Anemia, unspecified (principal); J44.9 Chronic obstructive pulmonary disease, unspecified; E05.90 Thyrotoxicosis, unspecified without thyrotoxic crisis or storm; K63.89 Other specified diseases of intestine
CPT/HCPCS: 45380; J2250; J3010

== ENCOUNTER → 2020-10-10 13:38 | Outpatient (CLI) | payer MEDICARE, MEDICAID, SELFPAY ==
--- NOTE | 2020-10-10 13:39 | DI.ECHO.S_ITS ---
[place] [facility]---------+ [facility] +---------+ : : [address] : : : : [id number] : : : : Phone: [phone]---------+ Echocardiogram Report + + :Name: ALYSSA ELAIEN Study Date: 10/10/2020 Height: 65 in : :[facility] ReadingLocation: Weight: 220 lb : : Gender: Female BSA: 2.1 m2 : :: 1945 Age: 74 yrs BP: 162/89 mmHg: :Reason For Study: SHORTNESS OF BREATH : :Ordering Physician: BRANDON, : :BECCA Performed By: Ramya Liz : :Referring: BECCA TAYLOR : + + Interpretation Summary 1) Normal left ventricular thickness and size with low normal systolic function (EF 50-55%). 2) Normal right ventricular size and function. 3) No significant valvular abnormalities. 4) The right ventricular systolic pressure is estimated to be at least 27 mmHg based on an estimated right atrial pressure of 3 mm Hg. 5) Hypertension present during the study (BP 162/89mmHg). 6) No prior Echo available for comparison. Procedure: A two-dimensional transthoracic echocardiogram with color flow and Doppler was performed. The study quality was technically adequate. There is no prior echocardiogram noted for this patient. The patient was in sinus rhythm with heart rates between 59-73 bpm during the exam. Left Ventricle: The left ventricle is normal in size and wall thickness. The ejection fraction is estimated to be 50-55%. There are no focal wall motion abnormalities. Right Ventricle: The right ventricle is normal in size and function. Atria: The left atrium is moderately dilated. Right atrial size is normal. There is no Doppler evidence for an interatrial shunt. Mitral Valve: The mitral valve is normal in structure and function. There is mild mitral annular calcification. There is mild mitral regurgitation. Aortic Valve: The aortic valve is not well visualized. The aortic valve opens well. There is no aortic valve stenosis. No aortic regurgitation is present. Tricuspid Valve: The tricuspid valve is normal in structure and function. There is mild tricuspid regurgitation. The right ventricular systolic pressure is estimated to be at least 27 mmHg based on an estimated right atrial pressure of 3 mm Hg. Pulmonic Valve: The pulmonic valve leaflets are thin and pliable; valve motion is normal. There is mild pulmonic regurgitation. Great Vessels: The aortic root is normal size. The ascending aorta is at the upper limits of normal in size. The IVC is of normal diameter and collapses greater than 50% with a sniff. This suggests a low right atrial pressure of 3 mm Hg. Pericardium/ Pleura There is no pericardial effusion. There is no pleural effusion. MMode/2D Measurements & Calculations LVIDd: 4.2 cm LVOT diam: 2.0 cm LVIDs: 3.1 cm Ao root diam: 2.5 cm FS: 26.0 % asc Aorta Diam: 3.5 cm EPSS: 0.81 cm Ao Arch Diam (Prox Trans): 2.3 cm IVSd: 1.1 cm LVPWd: 0.96 cm LV moreira. diameter/BSA (cm/m^2): 2.0 LV sys. diameter/BSA (cm/m^2): 1.5 LA A2 area: 26.9 cm2 RA long axis: 6.1 cm LA A4 area: 26.4 cm2 RA area: 21.4 cm2 LA length (vol): 6.2 cm RA vol: 63.7 ml LA vol: 97.1 ml RA : 30.9 ml/m2 LA vol index: 47.1 ml/m2 IVC diam: 1.7 cm RVD1 (basal): 3.6 cm TAPSE: 2.2 cm Doppler Measurements & Calculations Ao V2 max: 140.2 cm/sec LVOT Max Luis: 90.2 cm/sec Ao V2 mean: 90.0 cm/sec LV V1 max P.3 mmHg Ao max P.9 mmHg LV V1 VTI: 22.9 cm Ao mean P.8 mmHg JACKSON(I,D): 2.3 cm2 Ao V2 VTI: 29.8 cm JACKSON(V,D): 1.9 cm2 sev ratio: 0.77 JACKSON indexed to BSA (cm^2/m^2): 1.1 MV E max luis: 102.8 cm/sec TR max luis: 243.3 cm/sec MV A max luis: 105.5 cm/sec TR max P.7 mmHg MV E/A: 0.97 PA V2 max: 66.5 cm/sec Med Peak E' Luis: 6.8 cm/sec PA V2 mean: 45.5 cm/sec E/E' med: 15.2 PA mean P.94 mmHg Lat Peak E' Luis: 9.6 cm/sec PA pr(Accel): 37.9 mmHg E/E' lat: 10.7 E/e' average: 12.9 MV dec time: 0.22 sec [facility] 68.5 ml Reading Physician:04:24 PM
== END ==
PROVIDERS: PCP Family Medicine; Referring Provider Family Medicine; Visit Provider Family Medicine
DX: R06.02 Shortness of breath (principal); I08.1 Rheumatic disorders of both mitral and tricuspid valves
CPT/HCPCS: 93306

== ENCOUNTER → 2020-12-02 11:21 | Outpatient (CLI) | payer MEDICARE, MEDICAID, SELFPAY ==
[2020-12-02 12:39] LABS: COVID19 -Nasal RAPID Negative (Negative)
== END ==
PROVIDERS: PCP Family Medicine; Referring Provider Physician Assistant; Visit Provider Physician Assistant
DX: Z01.812 Encounter for preprocedural laboratory examination (principal); Z20.822 Contact with and (suspected) exposure to COVID-19
CPT/HCPCS: 87635; C9803

== ENCOUNTER → 2020-12-10 12:33 | Outpatient (CLI) | payer MEDICARE, MEDICAID, SELFPAY ==
[2020-12-10 13:27] LABS: Add Manual Diff / Slide Review NO; Basophils Absolute Auto 100 /uL (0-100); Eosinophils Absolute Auto 400 /uL (0-450); Eosinophils Percent Auto 8.2 % (2-4); Hematocrit 30.5 % (36-46); Hemoglobin 9.6 g/dL (12.0-16.0); Lymphocytes Absolute Auto 1700 /uL (1100-4500); Lymphocytes Percent Auto 32.3 % (25-40); Mean Corpuscular HGB Conc 31.4 % (30-36); Mean Corpuscular Volume 85.8 fL (80-100); Monocytes Absolute Auto 600 /uL (0-900); Monocytes Percent Auto 11.4 % (3-14); Neutrophils Absolute Auto 2500 /uL (1500-7000); Neutrophils Percent Auto 47.1 % (50-75); Platelet Count 254 X10^3/uL (150-400); Red Blood Cell Count 3.56 X10^6/uL (4.0-5.2); Red Cell Distribution Width 16.9 % (11.6-14.8); White Blood Cell Count 5.4 X10^3/uL (4.5-11.0)
[2020-12-10 13:41] LABS: HEMOLYSIS < 15 (0-50); Iron 51 ug/dL (37-170)
[2020-12-10 13:54] LABS: Percent Iron Saturation 12 % (15-50); Total Iron Binding Capacity 413 ug/dL (265-497); Transferrin 330 mg/dL (206-381)
== END ==
PROVIDERS: PCP Family Medicine; Referring Provider Family Medicine; Visit Provider Family Medicine
DX: D64.9 Anemia, unspecified (principal); R06.02 Shortness of breath
CPT/HCPCS: 36415; 83540; 83550; 85025

== ENCOUNTER → 2021-02-03 09:44 | Outpatient (CLI) | payer MEDICARE, MEDICAID, SELFPAY ==
--- NOTE | 2021-02-04 14:14 | P.PCN_ITS ---
Cardiac Stress Test Report Referral & Results Date Patient Seen: 02/04/21 Requesting provider: Blanca Bauer Indication: Shortness of breath Rest ECG: Unremarkable Procedure Note: After both written and verbal informed consent the patient had an IV started by the diagnostic imaging RN and then was hooked up to the treadmill monitoring system. The patient was placed on the treadmill at 1 mile an hour with no elevation and was then injected with the Cecily scan material. The Cardiolite was then immediately administered. The patient spent an additional 2-3 minutes on the treadmill before being returned to the [facility] in the supine position. The patient had a normal response to all infused materials. Of note oxygen saturation was 96% while walking on treadmill Impression: Normal response to infuse materials Please see perfusion imaging report for details regarding possible myocardial ischemia Please note: Actual ECG tracings can be found in the PACS system.
--- NOTE | 2021-02-04 17:39 | DI.NM.S_ITS ---
DATE OF SERVICE: PROCEDURE: Pharmacological perfusion study. DATE OF STUDY: February 03, 2021 INDICATIONS: Shortness of breath. RADIOPHARMACEUTICAL: 25.7 millicurie technetium-99m Myoview IV was injected at stress and 26.4 millicurie technetium-99m Myoview IV was injected at rest. CARDIAC STRESS: The patient underwent IV Lexiscan perfusion study under the supervision of an attending staff as per standard protocol. She remained hemodynamically stable. Baseline EKG revealed sinus rhythm with left axis. During stress there were no convincing ischemic changes or significant arrhythmias seen. No significant symptoms were reported. RAW DATA: There was increased subdiaphragmatic activity. Breast shadow was seen as well. The patient's weight is 220 pounds. GATED STUDY: Resting LV ejection fraction 74%. Stress LV ejection fraction 82%. No obvious wall motion abnormalities. Resting end-diastolic volume 66 mL. TID ratio 1.09, which is within normal limits. Lung/heart ratio 0.34 which is within normal limits. MYOCARDIAL PERFUSION SCAN: Stress supine, resting supine and stress prone images were compared to each other. Stress supine and resting supine images revealed moderate-size, moderate to severely decreased perfusion of inferior wall extending into the inferoapex, as well as distal septum which got significantly improved during the stress prone images. However stress prone images remain to have mildly decreased perfusion of distal inferior wall and inferior apex. No reversible ischemia. CONCLUSION: 1. No obvious reversible ischemia. 2. The patient has significant inferior wall, inferior apex and distal septal defect, which got significantly improved during stress prone images. Stress prone images remain to have mildly decreased perfusion of distal inferior wall and inferior apex. This finding suggests diaphragmatic tissue attenuation artifact. Inferior wall and inferior apex is moving well which goes against the diagnosis of previous transmural myocardial infarction. Raw images revealed increased subdiaphragmatic activity. Most likely we are dealing with tissue attenuation artifact as well as persistent tissue attenuation artifact however one cannot rule out the possibility of a small distal inferior wall and inferior apical infarction. Left ventricular function is preserved. No ischemic changes. Overall, this is a low-risk myocardial perfusion scan. Clinical correlation is recommended. Yohannes Hu - NORBERT/abigail/carlyn doc#: [id number]/job#: [id number] dd: 02/04/2021 17:08:00 dt: 02/04/2021 17:29:00 DICTATING MD/COPIES TO: Cuauhtemoc Coulter MD COPIES MNE: SANAZ;
== END ==
PROVIDERS: PCP Family Medicine; Referring Provider Family Medicine; Visit Provider Family Medicine
DX: Z01.812 Encounter for preprocedural laboratory examination (principal); R06.02 Shortness of breath; Z20.822 Contact with and (suspected) exposure to COVID-19
CPT/HCPCS: 78452; 87635; 93016; 93017; 93018; C9803; A9502; J2785

== ENCOUNTER → 2021-02-03 11:22 | Outpatient (CLI) | payer MEDICARE, MEDICAID, SELFPAY ==
[2021-02-03 13:47] LABS: COVID19 -Nasal RAPID Negative (Negative)
== END ==
PROVIDERS: PCP Family Medicine; Referring Provider Physician Assistant; Visit Provider Physician Assistant
DX: Z01.812 Encounter for preprocedural laboratory examination (principal); Z20.822 Contact with and (suspected) exposure to COVID-19
CPT/HCPCS: 87635

== ENCOUNTER → 2021-02-14 16:46 | Outpatient (CLI) | payer MEDICARE, MEDICAID, SELFPAY ==
--- NOTE | 2021-02-14 16:47 | DI.MRI.S_ITS ---
PROCEDURE: MR HEAD/BRAIN WO/W CON INDICATIONS: dizziness TECHNIQUE: Noncontrast axial T1 spin echo, axial T2 fast spin echo, sagittal and axial FLAIR, coronal T2 fast spin echo, axial gradient echo, axial diffusion and ADC through the brain. After the administration of contrast, axial and coronal T1 spin echo with fat saturation through the brain. COMPARISON: None. FINDINGS: Image quality: Excellent. CSF spaces: Basal cisterns are patent. No extra-axial fluid collections. Ventricles are normal in size and shape. Brain: No midline shift. No intracranial bleeds or masses. No abnormal intracranial enhancement. There is cerebral volume loss for age. There is periventricular white matter chronic small vessel ischemic change. The brainstem appears normal. Diffusion-weighted images demonstrate no acute ischemic insults. No chronic ischemic insults. Normal intravascular flow voids are present. In this patient with this given history, scrutiny is given to cerebellopontine angle cisterns and to the internal auditory canals. To the limits of this standard protocol study, no masses or abnormal enhancement can be seen within these regions. Skull and face: Calvarial marrow is normal in signal. Orbits appear normal. Note is made of bilateral lens replacements. Sinuses: Sinuses and mastoids appear clear. IMPRESSION: No imaging explanation is found for this patient's presenting symptoms. Note is made of age-appropriate brain parenchymal volume loss and chronic small vessel ischemic changes. No masses or abnormal enhancement can be seen. No findings of acute or subacute infarction can be seen. Dictated by: Kavon Trejo M.D. on 02/14/2021 at 16:49 Approved by: Kavon Trejo M.D. on 02/14/2021 at 16:51
== END ==
PROVIDERS: PCP Family Medicine; Referring Provider Family Medicine; Visit Provider Family Medicine
DX: R42 Dizziness and giddiness (principal)
CPT/HCPCS: 70553

== ENCOUNTER → 2021-03-14 15:06 | Outpatient (CLI) | payer MEDICARE, MEDICAID, SELFPAY ==
--- NOTE | 2021-03-14 | DI.MG.S_ITS ---
BILATERAL DIGITAL SCREENING MAMMOGRAM 3D/2D WITH CAD: 03/14/2021 CLINICAL: Routine screening. Comparison is made to exams dated: 02/15/2018 mammogram, 10/16/2016 mammogram - [facility], and 05/14/2015 mammogram - [facility]. There are scattered fibroglandular elements in both breasts. Current study was also evaluated with a Computer Aided Detection (CAD) system. No significant masses, calcifications, or other findings are seen in either breast. There has been no significant interval change. IMPRESSION: NEGATIVE There is no mammographic evidence of malignancy. A 1 year screening mammogram is recommended. This exam was interpreted at Station ID: [id number]. NOTE: For mammograms, a report in lay terms will be sent to the patient. Approximately 15% of breast malignancies will not be visualized mammographically. In the management of a palpable breast mass, a negative mammogram must not discourage biopsy of a clinically suspicious lesion. Electronically Signed By: Maxi hurst/willian:03/14/2021 16:52:03 letter sent: Normal Exam ACR BI-RADS Category 1: Negative 3341F
== END ==
PROVIDERS: PCP Family Medicine; Referring Provider Family Medicine; Visit Provider Family Medicine
DX: Z12.31 Encounter for screening mammogram for malignant neoplasm of breast (principal)
CPT/HCPCS: 77063; 77067

== ENCOUNTER → 2021-06-04 14:15 | Outpatient (CLI) | payer MEDICARE, MEDICAID, SELFPAY ==
--- NOTE | 2021-06-04 14:16 | DI.MRI.S_ITS ---
PROCEDURE: MR LUMBAR SPINE WO CON INDICATIONS: Spinal stenosis, lumbar region without neurogenic TECHNIQUE: Noncontrast sagittal T1 spin echo and T2 fast echo, sagittal STIR, axial T1 and T2 fast spin echo through the lumbar spine. In cases with scoliosis, additional coronal T2 fast spin echo may be performed. COMPARISON: 03/28/2020 FINDINGS: The lumbar dextroscoliosis as seen on comparison radiographs dated 03/28/2020. No listhesis. Vertebral body heights maintained. No suspicious focal marrow signal abnormality. Discogenic marrow edema at the opposing L2-L3 endplates. There is also periarticular bone marrow edema adjacent to the L2-L3 facets, right greater than left. Diffuse desiccation and height loss of the lumbar intervertebral discs from T12-L1 through L5-S1. Near complete loss of intervertebral disc space at L2-L3 and L3-L4 with vacuum disc phenomenon and areas of probable [id number] endplate contact. Normal position and appearance of the conus. Prevertebral and paraspinous soft tissues are unremarkable other than fatty atrophy of the paraspinous soft tissues. T12-L1: No spinal canal or neural foraminal stenosis. L1-L2: Disc bulge flattens the ventral thecal sac without mass effect upon the traversing nerve roots. Mild bilateral neural foraminal narrowing due to foraminal components of the disc bulge and facet hypertrophy. L2-L3: Disc bulge flattens the ventral thecal sac and slightly displaces the descending L3 nerve roots within both subarticular zones. Foraminal components of the disc bulge and facet hypertrophy combine to produce moderate left and mild right neural foraminal stenosis. Facet hypertrophy with facet effusions and subchondral cystic change, overall moderate. L3-L4: Diffuse disc bulge and a superimposed broad-based posterior disc protrusion combines with buckling of the ligamentum flavum and bulky facet hypertrophy to produce moderate-severe neural foraminal stenosis. There is near complete effacement of CSF within the thecal sac at this level and crowding of the traversing nerve roots, along with laxity of the nerve roots above this level suggesting an element of compression. Foraminal components of the disc bulge and facet hypertrophy combine to produce severe left and mild right neural foraminal stenosis. Facet effusions and subchondral cystic change noted. L4-L5: Diffuse disc bulge with a superimposed broad-based posterior disc protrusion. Disc material displaces the descending L5 nerve roots within both subarticular zones. Bulky facet hypertrophy and buckling of the ligamentum flavum further contribute to overall moderate subarticular zone stenosis, slightly more pronounced on the right. These factors all combine to produce mild bilateral neural foraminal stenosis. Small facet effusions and subchondral cystic change noted. L5-S1: Diffuse disc bulge with a superimposed broad-based posterior disc protrusion. Disc material displaces the descending S1 nerve roots within both subarticular zones, left greater than right. Foraminal components of the disc bulge and facet hypertrophy combine to produce moderate right and mild left neural foraminal stenosis. IMPRESSION: Multilevel multifactorial degenerative changes most pronounced at L3-L4 with moderate-severe spinal canal stenosis and severe left neural foraminal narrowing. Lesser degenerative changes at the remaining levels. Correlate for any corresponding radicular symptoms. Bulky facet osteoarthropathy throughout most of the lumbar spine with associated facet effusions and subchondral cystic change, representing potential sources of nonradicular axial back pain. Marrow edema at the L2-L3 opposing endplates and adjacent to the right L2-L3 facets is another potential source of nonradicular axial back pain. Dictated by: Deigo Turk M.D. on 06/04/2021 at 15:49 Approved by: Diego Turk M.D. on 06/04/2021 at 15:55
== END ==
PROVIDERS: PCP Family Medicine; Referring Provider Physical Medicine & Rehabilitation; Visit Provider Physical Medicine & Rehabilitation
DX: M48.061 Spinal stenosis, lumbar region without neurogenic claudication (principal); M48.07 Spinal stenosis, lumbosacral region; M47.816 Spondylosis without myelopathy or radiculopathy, lumbar region; M47.817 Spondylosis without myelopathy or radiculopathy, lumbosacral region
CPT/HCPCS: 72148

== ENCOUNTER → 2021-07-07 14:16 | Outpatient (CLI) | payer MEDICARE, MEDICAID, SELFPAY ==
[2021-07-07 14:54] LABS: Add Manual Diff / Slide Review NO; Basophils Absolute Auto 0 /uL (0-100); Basophils Percent Auto 0.8 % (0-2); Eosinophils Absolute Auto 500 /uL (0-450); Eosinophils Percent Auto 9.3 % (2-4); Hematocrit 34.6 % (36-46); Hemoglobin 11.3 g/dL (12.0-16.0); Lymphocytes Absolute Auto 1800 /uL (1100-4500); Mean Corpuscular HGB Conc 32.6 % (30-36); Mean Corpuscular Hemoglobin 31.9 PG (26-34); Mean Corpuscular Volume 97.7 fL (80-100); Monocytes Absolute Auto 600 /uL (0-900); Monocytes Percent Auto 10.6 % (3-14); Neutrophils Absolute Auto 2700 /uL (1500-7000); Neutrophils Percent Auto 47.3 % (50-75); Platelet Count 166 X10^3/uL (150-400); Red Blood Cell Count 3.54 X10^6/uL (4.0-5.2); White Blood Cell Count 5.7 X10^3/uL (4.5-11.0)
[2021-07-07 15:00] LABS: Hemoglobin A1C% w Est Avg Glu 5.4 % (4.0-6.0)
[2021-07-07 15:33] LABS: BUN Creatinine Ratio 20.7 (6-22); Blood Urea Nitrogen 24 mg/dL (7-17); Calcium 9.2 mg/dL (8.4-10.2); Carbon Dioxide 31 mmol/L (22-32); Chloride 108 mmol/L (98-107); Estimated Glomerular Filt Rate 45.5 mL/min (>60); Glucose 128 mg/dL (80-110); HEMOLYSIS < 15 (0-50); Potassium 5.2 mmol/L (3.4-5.1); Sodium 141 mmol/L (137-145)
== END ==
PROVIDERS: PCP Family Medicine; Referring Provider Orthopaedic Surgery Orthopaedic Surgery of the Spine; Visit Provider Orthopaedic Surgery Orthopaedic Surgery of the Spine
DX: Z01.812 Encounter for preprocedural laboratory examination (principal); R73.9 Hyperglycemia, unspecified
CPT/HCPCS: 36415; 80048; 83036; 85025

== ENCOUNTER → 2021-07-09 08:18 | Outpatient (CLI) | payer MEDICARE, MEDICAID, SELFPAY ==
[2021-07-09 09:53] LABS: Reticulocyte Count, Percent 1.2 % (1.06-2.63)
[2021-07-09 09:54] LABS: Add Manual Diff / Slide Review NO; Basophils Absolute Auto 0 /uL (0-100); Basophils Percent Auto 0.8 % (0-2); Eosinophils Absolute Auto 600 /uL (0-450); Eosinophils Percent Auto 10.2 % (2-4); Hematocrit 36.1 % (36-46); Hemoglobin 11.7 g/dL (12.0-16.0); Lymphocytes Absolute Auto 2400 /uL (1100-4500); Lymphocytes Percent Auto 39.7 % (25-40); Mean Corpuscular HGB Conc 32.5 % (30-36); Mean Corpuscular Hemoglobin 31.6 PG (26-34); Mean Corpuscular Volume 97.3 fL (80-100); Monocytes Absolute Auto 500 /uL (0-900); Monocytes Percent Auto 8.1 % (3-14); Neutrophils Absolute Auto 2500 /uL (1500-7000); Neutrophils Percent Auto 41.2 % (50-75); Platelet Count 195 X10^3/uL (150-400); Red Blood Cell Count 3.71 X10^6/uL (4.0-5.2); Red Cell Distribution Width 13.8 % (11.6-14.8)
[2021-07-09 10:29] LABS: Alanine Aminotransferase 17 IU/L (<35); Albumin 3.6 g/dL (3.5-5.0); Albumin Globulin Ratio 1.2 (1.0-2.8); Alkaline Phosphatase 72 U/L (38-126); Aspartate Aminotransferase 26 IU/L (14-36); BUN Creatinine Ratio 16.7 (6-22); Bilirubin Total 0.6 mg/dL (0.2-1.3); Blood Urea Nitrogen 19 mg/dL (7-17); Carbon Dioxide 30 mmol/L (22-32); Chloride 107 mmol/L (98-107); Cholesterol 197 mg/dL (140-199); Estimated Glomerular Filt Rate 46.5 mL/min (>60); Globulin 2.9 g/dL (1.7-4.1); Glucose 97 mg/dL (80-110); HDL Cholesterol 64 mg/dL (40-60); HEMOLYSIS < 15 (0-50); LDL Cholesterol Calculated 109 mg/dL (<100); Magnesium 2.1 mg/dL (1.6-2.3); Potassium 4.3 mmol/L (3.4-5.1); Sodium 140 mmol/L (137-145); Total Protein 6.5 g/dL (6.3-8.2); Triglycerides 118 mg/dL (35-150)
[2021-07-09 10:33] LABS: HEMOLYSIS < 15 (0-50); Iron 131 ug/dL (37-170)
[2021-07-09 10:52] LABS: Percent Iron Saturation 38 % (15-50); Total Iron Binding Capacity 349 ug/dL (265-497); Transferrin 276 mg/dL (206-381)
[2021-07-09 10:59] LABS: Thyroid Stimulating Hormone 5.53 uIU/mL (0.47-4.68)
[2021-07-09 11:31] LABS: Folate 5.8 ng/mL (2.76-20.0); Vitamin B12 > 1000 pg/mL (239-931)
== END ==
PROVIDERS: PCP Family Medicine; Referring Provider Internal Medicine Cardiovascular Disease; Visit Provider Internal Medicine Cardiovascular Disease
DX: D64.9 Anemia, unspecified (principal); I10 Essential (primary) hypertension
CPT/HCPCS: 36415; 80053; 80061; 82607; 82746; 83540; 83550; 83735; 84443; 85025; 85045

== ENCOUNTER → 2021-07-09 12:19 | Outpatient (CLI) | payer MEDICARE, MEDICAID, SELFPAY ==
--- NOTE | 2021-07-09 12:24 | DI.CT.S_ITS ---
PROCEDURE: CT LUMBAR SPINE WO CON INDICATIONS: Radiculopathy, lumbar region TECHNIQUE: Noncontrast 3 mm thick sections acquired from the T12 level to the sacrum. 0.8 mm axial images are reconstructed. Sagittal and coronal reformats were constructed. For radiation dose reduction, the following was used: automated exposure control. COMPARISON: [facility], MR, MR LUMBAR SPINE WO CON, 10/10/2018, 16:04. [facility], CT, CT ABDOMEN PELVIS WITH CONTRAST, 05/31/2017, 14:34. [facility], MR, MR LUMBAR SPINE WO CON, 06/04/2021, 14:43. FINDINGS: Image quality: This examination is limited by involuntary motion artifact. Bones: No acute vertebral body compression fractures. No suspicious lytic or blastic bony lesions. No pars defects. Moderate dextroconvex lumbar scoliosis is seen. Minimal retrolisthesis is seen at L2-L3, L3-L4, and L4-L5. T11-T12: Moderate loss of disc height is seen on the right side. Vacuum disc phenomenon is seen at this level. Mild facet joint hypertrophy is seen. No significant neural foraminal or central canal narrowing can be seen. T12-L1: Normal. L1-L2: Moderate loss of disc height is seen on the right side. Mild to moderate disc bulge is seen, which is eccentric to the right. There is moderate right-sided and mild left-sided neural foraminal narrowing seen. Mild to moderate central canal narrowing is seen. L2-L3: Moderate to severe loss of disc height is seen. Prominent bridging anterior/left endplate osteophytes are seen. Vacuum disc phenomenon is seen at this level. Posteriorly projected endplate osteophytes are seen. At least moderate bilateral neural foraminal narrowing can be seen. Moderate central canal narrowing is seen. L3-L4: At least moderate loss of disc height is seen on the left side. Vacuum disc phenomenon is seen at this level. Posteriorly projected endplate osteophytes are seen. Mild to moderate facet joint hypertrophy is seen. Associated hypertrophy of the ligamentum flavum can be seen. There is moderate to severe bilateral neural foraminal narrowing seen, left worse than right. Moderate to severe central canal narrowing is seen. L4-L5: The disc height is well preserved. Moderate disc bulge is seen. There is a superimposed central disc protrusion. Associated hypertrophy of the ligamentum flavum can be seen. There is moderate to severe right-sided and moderate left-sided neural foraminal narrowing seen. Moderate to severe central canal narrowing is seen. L5-S1: The disc height is well preserved. Mild to moderate disc bulge is seen at this level. There is at least moderate right-sided and moderate left-sided neural foraminal narrowing seen. Moderate to severe right-sided and moderate left-sided neural foraminal narrowing can be seen. Mild central canal narrowing is seen. Soft tissues: No retroperitoneal masses or hematomas. Visualized aorta is normal in caliber. There is a small to moderate hiatal hernia seen. Cholecystectomy clips are seen. IMPRESSION: Multiple levels of lumbar spine degenerative change are seen, which are worst at the L3-L4 level. The degenerative changes are better seen on the recent prior MRI examination. Moderate dextroconvex scoliosis. Incidental note is made of: Small to moderate hiatal hernia Cholecystectomy Dictated by: Kavon Trejo M.D. on 07/09/2021 at 14:54 Approved by: Kavon Trejo M.D. on 07/09/2021 at 15:02
== END ==
PROVIDERS: PCP Family Medicine; Referring Provider Orthopaedic Surgery Orthopaedic Surgery of the Spine; Visit Provider Orthopaedic Surgery Orthopaedic Surgery of the Spine
DX: M47.26 Other spondylosis with radiculopathy, lumbar region (principal); M43.16 Spondylolisthesis, lumbar region
CPT/HCPCS: 72131

== ENCOUNTER → 2021-07-14 10:21 | Outpatient (CLI) | payer MEDICARE, MEDICAID, SELFPAY ==
[2021-07-14 12:27] LABS: COVID19 -Nasal RAPID Negative (Negative)
== END ==
PROVIDERS: PCP Family Medicine; Referring Provider Nurse Practitioner Family; Visit Provider Nurse Practitioner Family
DX: Z20.822 Contact with and (suspected) exposure to COVID-19 (principal)
CPT/HCPCS: 87635; C9803

== ENCOUNTER 2021-07-16 10:52 | Observation (INO) | payer MEDICARE, MEDICAID, SELFPAY ==
[2021-07-10 09:43] VITALS: BMI 37.0
[2021-07-16] VITALS (14 sets, daily range): BP systolic 130–161; BP diastolic 73–87; PULSE 66–82; RESP 14–22; TEMP 36.2–36.6; O2SAT 91–98; BMI 37.0
--- NOTE | 2021-07-16 | DI.RAD.S_ITS ---
PROCEDURE: XR LUMBAR SPINE 2-3V INDICATIONS: L2-3 L3-4 TLIF TECHNIQUE: 3 intraoperative fluoroscopic views of the lumbar spine were acquired. COMPARISON: [facility], , XR LUMBAR SPINE 2-3V, 04/26/2018, 12:12. FINDINGS: Intraoperative fluoroscopic images of lumbar spine shows transpedicular fusion at L2-3 and L3-4 levels with intervertebral spacer placement. IMPRESSION: Fluoro guidance was provided intraoperatively for transpedicular fusion at L2-3 and L3-4 levels. Dictated by: Randy Mckay M.D. on 07/17/2021 at 8:24 Approved by: Randy Mckay M.D. on 07/17/2021 at 9:11
[2021-07-16] MEDS: LACTATED RINGERS 1,000 ML 42 ML IV ×2 (11:33→15:19)
[2021-07-16] MEDS: ACETAMINOPHEN 325 MG TABLET 975 MG PO (11:35)
--- NOTE | 2021-07-16 12:01 | PM.PREOP ---
Pre-operative Note COVID-19 COVID-19 status: Negative Result date/Date tested (Pos, Neg/Pending): 07/14/21 Interval Note History & Physical reviewed/Exam performed by Physician: Yes Changes to H&P: No
[2021-07-16] MEDS: ALBUTEROL/IPRATROPIUM 3 ML AMPUL INH (12:38)
[2021-07-16] MEDS: CEFAZOLIN 2 GM/20 ML SYRINGE IV ×3 (13:16→22:18)
--- NOTE | 2021-07-16 14:01 | SUR.OPER ---
Prone on spine table, head in foam head support, padded chest and pelvic supports, gel pad at knees, lower legs supported by pillows; nipples, genitalia and toes free of pressure, arms secured on foam padded arm boards at <90 degrees abduction. Tape over blanket at thigh secured to table. Gel pad placed between patients heels. Gel pad to bilateral hip/thigh area between patient and bed frame.
[2021-07-16] MEDS: BUPIVACAINE 0.25% (PF) 30 ML, EPINEPHrine 0.3 MG INJ (14:05)
[2021-07-16] MEDS: BUPIVACAINE LIPOSOME 266 MG/20 ML VIAL INJ (17:10)
--- NOTE | 2021-07-16 17:30 | P.OP_ITS ---
Operative Date/Time/Diagnoses Date of procedure: 07/16/21 Time of procedure: 12:30 Pre-op diagnosis: 1. Lumbar scoliosis 2. Lumbar spinal stenosis with neurogenic claudication Post-op diagnosis: same Procedure & Clinicians Procedure: 1. L2-3, L3-4 Postero-lateral and posterior interbody fusion 2. L2-3, L3-4 interbody cage placement. 3. L2-3, L3-4 decompressive laminectomy with bilateral facetecomies 4. L2-3, L3-4 Posterior segmental instrumentation 5. Waldo of bone marrow from iliac crest 6. Utilization of microsurgical technique and operating microscope Same procedure as scheduled: Yes Indications: Patient has been having chronic back pain and worsening lumbar radiculopathy. Patient failed multiple conservative management with worsening pain weakness and numbness in her lower extremity. Patient has been having difficulty performing activity of daily living. After discussing risks benefits of treatment options, patient elected proceed with surgery. Surgeon: Reggie Sifuentes Towerman: Jeramy Gamboa Click Yes if Unassisted: No Anesthesia Type: General Operative Notes Closure Type: primary Specimen(s): none sent Prosthetic devices, grafts, tissues, transplants, or devices: Globus CREO MIS screws, Rise cages Applied: catheter Estimated Blood Loss (mL): 350 Blood products transfused: none Procedure in detail: Patient was seen in the preoperative area. Risks and benefits of the surgery was discussed with the patient. Informed consent was obtained from the patient and placed in the chart. Surgical site was marked. Patient was taken to the operative room. General anesthesia was administered. Prophylactic antibiotic was given to the patient less than 30 min before the incision was made. Patient was placed into a prone position on the [place] table. Patient's back was then prepped and draped in the sterile fashion. Time-out was performed at this time. After patient was prepped and draped, patient's PSIS was palpated and marked bilaterally. Small 1 cm incision was made over the PSIS for placement of the reference probes. Two trocar was placed into the PSIS 1 on each side. The reference probe was attached to the trocar of the reference apparatus. At this time the C-arm imaging was used to confirm AP and lateral of L2, L3-L4 vertebrae and merged the C-arm imaging using the [employer] robotic navigation system with the CT of the lumbar spine. After successful merging was completed and confirmed, skin marker was used to hunter out the skin incision using the [employer] robotic arm. Bilateral incision was made at this time. Pre templated trajectory was used and guided using the [employer] robotic navigation system for bilateral L2 L3, L4 pedicle screw placement. This was done by using the robotic arm to guide the high-speed bur to make a cortical entry point. Next a drill was placed also using the robotic arm and guided using the navigation system drilling partially through bilateral L2, L3, L4 pedicles. Next L2, L3, L4 pedicle screws it was pre templated and measured was placed onto the power regional intermodal truck driver and inserted into the pedicles bilaterally. After all 6 screws were placed C-arm imaging was taken of both AP and lateral to confirm the placement. Excellent placement of the screws were confirmed and a matched precisely with the pre planned screw placement using the navigation system. MARs retractor was inserted using Warp 9ivation guidence. Globus MARS retractors was placed inside the incision and docked onto the L2, L3 lamina. Using microsurgical technique and operating microscope, a L3, L4 laminectomy and L2-3, L3-4 facetectomy was performed using a Kerrison rongeur. Patient was found have severe lateral recess and neural foramen stenosis which was fully decompressed after the laminectomy facetectomy. More than 75% of the facets were removed during the process of decompression rendering L2-3, L3-4 level grossly unstable and required a fusion procedure at the same time. The disc space at L2-3, L3-4 was identified, and a total diskectomy was performed at L2- 3, L3-4 level. The endplates were decorticated using a rasp and shaver. The total diskectomy and decortication was performed at L2-3, L3-4 level in order to to accomplish a L2-3, L3-4 fusion. The local bone from the laminectomy and facetectomy was saved for local bone grafting. After the total diskectomy and decortication was completed, Trifecta bone graft material was combined with local bone that was harvested earlier. At this time, a separate skin is incision was made over the iliac crest. A Jamshidi needle was inserted into the iliac crest through a separate skin incision. 5 cc of bone marrow aspiration was obtained through the separate skin incision using a Jamshidi needle from the iliac crest. The bone marrow aspiration was combined with local bone and the Trifecta bone grafting material. The bone grafting material was placed into the L2-3, L3-4 interbody space along with expandable cages. One cage each was inserted into the L2-3 L3-4 interbody space along with bone graft material. The cage was expanded to its maximum height using the torque limiting screwdriver. The disc preparation as well as the cage insertion were also performed under navigation guidance. After the cage was placed, AP and lateral C-arm imaging was taken to confirm placement of the cage and excellent position was confirmed. Globus MARS retractor was inserted and docked onto the L2-3, L3-4 posterolateral gutter on the right side. Using the power drill, posterior-lateral decortication was performed at L2-3, L3-4 level until bleeding cortical bone was identified. The remaining bone grafting material was placed into the L2-3, L3-4 posterior lateral gutter he order to accomplish posterolateral fusion at the L2- 3, L3-4 level. At this time the tulips were attached to the L2, L3-L4 pedicle screw shanks. After measuring the length of the rods, they were inserted into the tulips of the pedicle screws and locked in place using locking caps and torque limiting screwdriver bilaterally. Total 6 caps and 2 titanium rods was used in order to complete the posterior instrumentation construct. After all the hardware was placed, and confirmed with AP and lateral C-arm imaging, the wound was then irrigated with sterile normal saline and packed with Ray-Fiorella gauze for 3 min to accomplish hemostasis. After the gauze was removed the deep fascia was closed with #1 Vicryl suture. The subcutaneous layer was closed with 2-0 Vicryl. The skin was closed with skin juma. Patient tolerated the procedure well. There were no complications. Neuro monitoring system was used to monitor patient's neurologic status throughout entire procedure. There was no disturbance of the neural monitoring signals throughout the case. Complications: none Post-operative Condition: stable Disposition: PACU Plan for aftercare: Admit to inpatient hospital
[2021-07-16] MEDS: hydrOXYzine 50 MG/ML INJ 25 MG IM (17:53)
[2021-07-16] MEDS: fentaNYL 100 MCG/2 ML INJ IV (18:01)
[2021-07-16] MEDS: SODIUM CHLORIDE 0.9% 1,000 ML 100 ML IV (19:07)
[2021-07-16] MEDS: HYDROMORPHONE 0.5 MG INJ IV (19:09)
[2021-07-16] MEDS: SENNOSIDES 8.6 MG TABLET 17.2 MG PO (20:40)
[2021-07-16] MEDS: GABAPENTIN 600 MG TABLET PO (20:41)
[2021-07-16] MEDS: DICYCLOMINE 10 MG CAPSULE PO (20:41)
[2021-07-16] MEDS: DOCUSATE 100 MG CAPSULE PO (20:41)
[2021-07-17] VITALS (9 sets, daily range): BP systolic 118–166; BP diastolic 69–88; PULSE 72–93; RESP 16–18; TEMP 36.6–37.8; O2SAT 96–98
[2021-07-17] MEDS: ONDANSETRON 4 MG/2 ML INJ IV ×2 (00:27→08:20)
[2021-07-17] MEDS: ACETAMINOPHEN 325 MG TABLET 650 MG PO ×2 (03:13→11:29)
[2021-07-17] MEDS: OXYCODONE IR 5 MG TABLET 10 MG PO ×2 (03:19→20:56)
--- NOTE | 2021-07-17 03:27 | PC.NURSE ---
Continued to have nausea & vomiting even after the Zofran earlier. States I never had Dilaudid before, I normally takes Oxycodone after my surgery before. Pain level reported 9-10/10 pain scale. Requested & medicated with 650 mg. PO Tylenol & 10 mg. of Oxycodone, took pills with saltine crackers. Lower back dressing reinforced with ABD. dressing, noted moderateamount of sero-sang. drainage. Will cont. POC & monitor.
[2021-07-17] MEDS: CEFAZOLIN 2 GM/20 ML SYRINGE IV (05:23)
[2021-07-17] MEDS: SODIUM CHLORIDE 0.9% 1,000 ML 100 ML IV ×2 (05:49→15:42)
[2021-07-17 06:46] LABS: Hematocrit 31.4 % (36-46); Hemoglobin 10.3 g/dL (12.0-16.0)
--- NOTE | 2021-07-17 07:23 | PM.PNPO.1 ---
Subjective Subjective Date Patient Seen: 07/17/21 Time Patient Seen: 07:23 Interval history: Patient is complaining of moderate to severe low back pain. She denies any new numbness or tingling. She has had significant nausea and some vomiting last night. Exam Vital Signs (past 8 hours): - 07/17/21 00:57 07/17/21 04:00 Temperature 98.6 F 100.1 F H Pulse Rate 72 83 Respiratory Rate 16 17 Blood Pressure 160/82 H 153/81 H Pulse Oximetry 98 97 Oxygen Delivery Method Room Air Oxygen Flow Rate 0 Narrative Exam Narrative: 75-year-old female, resting comfortably in bed, no acute distress. Dressing demonstrates bloody discharge, the patient did not want me to change her dressing this morning. Bilateral lower extremity: A motor functions grossly intact, sensation is grossly intact to light touch, bilateral calves are soft, right calf is mildly tender to palpation. No significant cording negative Homans. Objective Labs Result Diagrams: 07/17/21 06:20 Labs: Laboratory Results - last 24 hr 07/17/21 06:20 Hgb 10.3 L Hct 31.4 L PFSH Medical History Anxiety Arthritis Asthma (~196) Burning sensation of feet Cataract Chronic headaches COPD (chronic obstructive pulmonary disease) Depression Difficulty falling asleep at night until tank setter helper hours Easy bruisability Eczema Foot pain Heartburn HTN (hypertension) Hyperthyroidism Lower urinary tract symptoms (LUTS) Neck stiffness Postmenopausal atrophic vaginitis Prediabetes Shoulder pain Urge incontinence Surgical History Anesthesia History of bilateral knee replacement History of carpal tunnel repair (2007) History of cataract removal with insertion of prosthetic lens History of surgery (12/03/20) Hx of cholecystectomy S/P foot surgery, right (12/23/18) Family History Brother Age: 65 Prostate cancer Father Cancer Diabetes mellitus Hypertension Stroke Lung cancer Mother Heart disease Hypertension Heart attack Psoriasis Sister Age: 60 Brain tumor Cancer Social History marital status: number of children: 2 household members: family and children occupational status: previously employed and disabled Smoking Status: Never smoker alcohol intake: current substance use type: does not use caffeine: Yes Assessment & Plan Post-op Postoperative Procedures: Procedures Operation Date: 07/16/21 12:15 Actual Procedure Side Surgeon p L2-3, L3-4 TLIF with posterior instrumentation. - Robot Reggie Sifuentes MD Postoperative day: 1 Postoperative status: marginal pain control Postoperative status narrative: Stable status post L2-3, L3-4 TLIF Postoperative plan narrative: -mobilize with PT. Limit bending, lifting, twisting. Weightbearing as tolerated front wheel walker -encouraged Vistaril for nausea and pain, continue current pain regimen otherwise -disposition likely in 1-2 days Quality VTE Deep Vein Thrombosis/Pulmonary Embolism Present on Admission: No
--- NOTE | 2021-07-17 07:31 | PC.NURSE ---
Ortho notified dressing to lower back reinforced x2 & pt. had been having N/V. Declined any antiemetic Zofran this morning. Reported to ernesto Nielson RN.
[2021-07-17] MEDS: ALBUTEROL 2.5 MG/3 ML NEB (ADULT) INH ×2 (10:03→19:57)
--- NOTE | 2021-07-17 10:25 | PT.IIE ---
Current Diagnoses Other secondary scoliosis, lumbar region (07/16/21) Spinal stenosis, lumbar region without neurogenic claudication (07/16/21) Surgery Performed Operation Date: 07/16/21 12:15 Actual Procedures p L2-3, L3-4 TLIF with posterior instrumentation. 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 Easy bruisability Eczema Foot pain Heartburn HTN (hypertension) Hyperthyroidism Lower urinary tract symptoms (LUTS) Neck stiffness Postmenopausal atrophic vaginitis Prediabetes Shoulder pain Urge incontinence Physical Therapy Inpatient Evaluation/Re-Eval M1 PT/OT-IP Prior Functional Status Start: 07/17/21 12:26 Freq: NEEDED Status: Active Protocol: Document 07/17/21 10:25 AB (Rec: 07/17/21 12:48 AB [email or web address]) Medical Review Prior Functional Status Medical History Reviewed Yes Communication able to make needs known Mobility and Gait pt stated that she is modified independent with all mobilities and ambulation without AD but has h/o falls and last fall was ~ 5 days ago Social History Household Members family,children Living Arrangements House Number of Floors (Floors) Two Floors Number of Stairs To Enter/Railing? 2 steps without rails to enter 13 steps with B rails to get to bedroom level Home Environment Tub/Shower Home Equipment Four Wheel Walker,Straight Cane,Shower Seat without Backrest Additional Social History Comment pt's [id number] will assist pt M2 PT-IP Current Condition Start: 07/17/21 12:26 Freq: NEEDED Status: Active Protocol: Document 07/17/21 10:25 AB (Rec: 07/17/21 12:48 AB [email or web address]) Physical Therapy Current Condition Current Condition Evaluation Date 07/17/21 Treatment Diagnosis s/p L2-3, L3-4 TLIF; difficulty in walking Onset Date 07/16/21 M3 PT-IP Subjective Start: 07/17/21 12:26 Freq: NEEDED Status: Active Protocol: Document 07/17/21 10:25 AB (Rec: 07/17/21 12:48 AB [email or web address]) Subjective Physical Therapy Visit Type Type Initial Evaluation Visit Start Time 10:25 Visit Stop Time 11:10 Total Visit Minutes 45 Number of PATIENT INTAKE COORDINATOR Visits 0 Physical Therapy Visit Comments Patient Comments agreeable to do PT Therapy Pain Assessment Pain When Pain Assessed At Rest Pain Present Pain Present Pain Reported Location lower back Intensity 9 Scale Used Numeric (0 - 10) Pain Management Techniques Distraction,Modification of Treatment,Re-positioning, Timing of Activity with Medications M4 PT-IP Mobility and Gait Start: 07/17/21 12:26 Freq: NEEDED Status: Active Protocol: Document 07/17/21 10:25 AB (Rec: 07/17/21 12:48 AB [email or web address]) PT-Bed Mobility Assessment Rolling Type of Rolling Log Rolling Level of Assist Maximal Assistance Supine to Sit Supine to Sit Maximum Assistance,1 Person Assistance,2 Person Assistance Sit to Supine Sit to Supine Maximum Assistance,2 Person Assistance PT-Transfer Assessment Sit to and From Stand Sit to and from Stand Maximum Assistance,1 Person Assistance,2 Person Assistance ,Use of Upper Extremities Equipment Transfer Assistive Device Gait Belt,Front Wheeled Walker Orthotic/Prosthetic Devices or Brace: No Transfers Transfer Destination Chair Transfer Technique ambulated using FWW Transfer Ability Level of Assist Maximum Assistance,1 Person Assistance,2 Person Assistance ,Use of Upper Extremities Comments Mobility Comments educated pt and DIL regarding back precautions and log roll bed mobility. completed log roll supine to sit max A x 1-2 and max cues. pt with slight confusion and requires repeated cues/instructions. pt stated that it is the medication because she still feels fuzzy in her brain. pt was able to sit on EOB CGA. completed sit to stand max A x 2 and max cues. ambulated in room 10 ft using FWW with increase L knee flexion and cued for quads activation. pt sat on chair but does not want to stay on the chair and wants to go back to bed. prepared bed for pt. pt completed sit to stand from the chair max A and max cues and step transfer to bed using FWW max A and cues. completed log roll sit to supine max A x 2 and max cues. positioned pt in bed. call light and table placed within reach. Gait Assessment Gait Gait Assistance Required: Maximum Assistance,1 Person Assist,2 Person Assist Distance (Feet) 10 Able to Maintain Weight Bearing Status Yes During Gait Assistive Devices Assistive Device Gait Belt,Front Wheeled Walker Orthotic/Prosthetic Devices or Brace: No Gait Deviations General Gait Pattern Decreased Stride Length, Decreased Feet Clearance,Step- to Gait Factors Limiting Gait Function Factors Limiting Gait Function Decreased Activity Tolerance, Decreased Strength,Difficulty Following Directions,Limited Range of Motion,Pain,Poor Balance,Poor Safety Awareness PT-Balance Assessment Sitting Balance and Reactions Static Sitting Balance Ability Good Dynamic Sitting Balance Ability Fair Standing Balance and Reactions Static Standing Balance Ability Poor Dynamic Standing Balance Ability Poor Device Used FWW M5 PT-IP Objective Assessments Start: 07/17/21 12:26 Freq: NEEDED Status: Active Protocol: Document 07/17/21 10:25 AB (Rec: 07/17/21 12:48 AB [email or web address]) Orientation Orientation/Cognition Level of Alertness Alert Language Function Ability No Deficits Noted Safety Awareness Decreased Safety Awareness Memory Description Short Term Impaired Comments with slight confusion Gross Range of Motion Lower Extremity ROM Assessment Within Functional Limits Strength Lower Extremity Strength Assessment Bilaterally Impaired Hip 3+/5 Knee 4-/5 Coordination Assessment Gross Coordination Gross Coordination WNL Sensation Assessment Sensation Gross Sensation WNL Muscle Tone Muscle Tone WNL Yes M6 PT-IP Treatment Start: 07/17/21 12:26 Freq: NEEDED Status: Active Protocol: Document 07/17/21 10:25 AB (Rec: 07/17/21 12:48 AB [email or web address]) Physical Therapy Treatment Education Education Provided Precautions,Weight Bearing Status,Post-Op Packet,Safety M7 PT-IP Assessment and Plan Start: 07/17/21 12:26 Freq: NEEDED Status: Active Protocol: Document 07/17/21 10:25 AB (Rec: 07/17/21 12:48 AB [email or web address]) PT Summary Assessment and Plan Potential Rehabilitation Potential Fair Status of Condition at Evaluation Evolving Summary Impairments Pain,ROM,Strength,Balance, Coordination,Sensation,Tone, Cognition,Bed Mobility, Transfers,Gait,Activity Tolerance Assessment Summary pt requiring max A x1-2 with mobility and unable to tolerate much activity today. pt also c/o increase back pain affecting mobility but unable to take much pain medications due to nausea with emesis. pt's DIL in room and agreeable to do caregiver training and set up at ~ 1/ 130pm today. will continue to assess progress. at this time , pt will benefit from HHPT. Goals Bed Mobility Goal Standby Assistance Transfer Goal Standby Assistance,Front Wheeled Walker Gait Goal Standby Assistance,Front Wheel Walker Gait Distance 150 Other Goals up/down 2 steps without rails: SPC/MANAGER TELECOM CGA up/down 13 steps B rails SBA Days to Meet Goals 10 Frequency of Treatment Frequency Of Treatment Twice a Day Treatment Plan Physical Therapy Treatment Plan Bed Mobility Training,Transfer Training,Gait Training, Therapeutic Exercise,Balance Retraining,Post Op Education, Discharge Planning,Hot or Cold Pack,Neuromuscular Re-ed, Coordination Retraining,Manual Therapy Precautions Lumbar Precautions Log Roll,No Twisting,Limit Bending,Lifting Restriction of 10 lbs,Gait Belt above Incisional Area Recommendations To Nursing Amount of Assist Needed 1 Person Assist Discharge Recommendations PT Discharge Recommendations Home with 01/03 Assist Available,Home Health Equipment Needed for Home Before FWW Discharge Transportation Needs at Discharge Private Vehicle
--- NOTE | 2021-07-17 10:27 | PC.NURSE ---
Addendum entered by Sunita Rowan R.N. 07/17/21 17:38: Pt improved over day. Resting at intervals IVF continue via pump as per orders w/o incidence. Nash cath patent clear urine Stable post op course, Call light w/in reach, bed alarm on for pt safety. Continue w/plan of care. Original Note: Pt nauseated this morning, meds held per her request. PA here to see, back dsg saturated, Incision restapled in small area, new dsg applied. Zofran given w/ good results. Call light w/in reach, bed alarm on for pt safety.
--- NOTE | 2021-07-17 12:33 | OT.IPNOTE ---
Spoke at length with pt's daughter regarding prior level of functions and OT needs. Pt in bed and has been nauseous and not feeling well. Pt just about to get lunch and agreed to see pt tomorrow for OT eval. No charge
--- NOTE | 2021-07-17 13:18 | DIET.PN1 ---
Dietary Progress Note RD Note: RD spoke c pts DIL and interactive media specialist Constance who will bringing in some homemade meals for pt. RD and kitchen aware, okay with this as pt vegetarian on general diet. Pt will also have hospital yogurt c fruit and soups. Ht: 165.1 cm Wt: 103.6 kg BMI: 37.0 Last BM: 07/16/21 (07/16/21 18:54) MNA: 14 Mike Score: 19 Diet: 07/16/21 Dinner General (Regular) Diet Diet Modifications: vegetarian Labs: Hgb 10.3 g/dL (12.0-16.0) L 07/17/21 06:20 Hct 31.4 % (36-46) L 07/17/21 06:20 Electronically Signed by: Elida Rios 07/17/21 13:18 Clinical Dietitian [address] [id number]
--- NOTE | 2021-07-17 13:33 | PT.IPTN ---
Current Diagnoses Other secondary scoliosis, lumbar region (07/16/21) Spinal stenosis, lumbar region without neurogenic claudication (07/16/21) Surgery Performed Operation Date: 07/16/21 12:15 Actual Procedures p L2-3, L3-4 TLIF with posterior instrumentation. - Robot - Reggie Sifuentes MD Physical Therapy Treatment Note M2 PT-IP Current Condition Start: 07/17/21 12:26 Freq: NEEDED Status: Active Protocol: Document 07/17/21 10:25 AB (Rec: 07/17/21 12:48 AB [id number]) Physical Therapy Current Condition Current Condition Evaluation Date 07/17/21 Treatment Diagnosis s/p L2-3, L3-4 TLIF; difficulty in walking Onset Date 07/16/21 M3 PT-IP Subjective Start: 07/17/21 12:26 Freq: NEEDED Status: Active Protocol: Document 07/17/21 13:33 AB (Rec: 07/17/21 14:19 AB [email or web address]) Subjective Physical Therapy Visit Type Type Treatment Note Visit Start Time 13:33 Visit Stop Time 14:03 Total Visit Minutes 30 Number of MANAGER E[employer] Visits 0 Physical Therapy Visit Comments Patient Comments pt agreed to do PT; DIL in room for caregiver training Therapy Pain Assessment Pain When Pain Assessed At Rest Pain Present Pain Present Pain Reported Location lower back Intensity 8 Scale Used Numeric (0 - 10) Pain Management Techniques Distraction,Modification of Treatment,Re-positioning, Timing of Activity with Medications M4 PT-IP Mobility and Gait Start: 07/17/21 12:26 Freq: NEEDED Status: Active Protocol: Document 07/17/21 13:33 AB (Rec: 07/17/21 14:19 AB [email or web address]) PT-Bed Mobility Assessment Rolling Type of Rolling Log Rolling Level of Assist Moderate Assistance Supine to Sit Supine to Sit Moderate Assistance,1 Person Assistance Sit to Supine Sit to Supine Maximum Assistance PT-Transfer Assessment Sit to and From Stand Sit to and from Stand Moderate Assistance,1 Person Assistance,Use of Upper Extremities Equipment Transfer Assistive Device Gait Belt,Front Wheeled Walker Orthotic/Prosthetic Devices or Brace: No Comments Mobility Comments educated DIL on how to assist pt. BP in supine: 159/78. pt completed bed mobility supine to sit log roll with DIL assisting. pt was able to sit on EOB SBA. pt continues to be sleepy and needs cues to stay awake. pt stated that she did not sleep wel last night due to nause and vomiting. educated SÁNCHEZ on how to use safety belt and how to assist pt. SÁNCHEZ was able to assist pt up from EOB, ambulated pt in room ~ 25 ft using fWW mod A. pt with increasing unsteadiness towards end of ambulation. pt requested to go back to bed. pt completed sit to supine log roll with SÁNCHEZ providing max A for LE elevation. PT provided cues with all tasks. positioned pt in bed. call light and table placed within reach. set up caregiver training for tomorrow at 10 am . Gait Assessment Gait Gait Assistance Required: Moderate Assistance Distance (Feet) 25 Able to Maintain Weight Bearing Status Yes During Gait Assistive Devices Assistive Device Gait Belt,Front Wheeled Walker Orthotic/Prosthetic Devices or Brace: No Gait Deviations General Gait Pattern Antalgic,Ataxic,Decreased Feet Clearance Factors Limiting Gait Function Factors Limiting Gait Function Decreased Activity Tolerance, Decreased Strength,Difficulty Following Directions,Limited Range of Motion,Pain,Poor Balance,Poor Safety Awareness M5 PT-IP Objective Assessments Start: 07/17/21 12:26 Freq: NEEDED Status: Active Protocol: Document 07/17/21 10:25 AB (Rec: 07/17/21 12:48 AB [email or web address]) Orientation Orientation/Cognition Level of Alertness Alert Language Function Ability No Deficits Noted Safety Awareness Decreased Safety Awareness Memory Description Short Term Impaired Comments with slight confusion Gross Range of Motion Lower Extremity ROM Assessment Within Functional Limits Strength Lower Extremity Strength Assessment Bilaterally Impaired Hip 3+/5 Knee 4-/5 Coordination Assessment Gross Coordination Gross Coordination WNL Sensation Assessment Sensation Gross Sensation WNL Muscle Tone Muscle Tone WNL Yes M6 PT-IP Treatment Start: 07/17/21 12:26 Freq: NEEDED Status: Active Protocol: Document 07/17/21 13:33 AB (Rec: 07/17/21 14:19 AB [id number]) Physical Therapy Treatment Education Education Provided Precautions,Safety M7 PT-IP Assessment and Plan Start: 07/17/21 12:26 Freq: NEEDED Status: Active Protocol: Document 07/17/21 13:33 AB (Rec: 07/17/21 14:19 AB [id number]) PT Summary Assessment and Plan Potential Rehabilitation Potential Good Summary Impairments Pain,ROM,Strength,Balance, Coordination,Sensation,Tone, Cognition,Bed Mobility, Transfers,Gait,Activity Tolerance Progress Towards Goals Slow Progress due to Pain,Slow Progress due to Activity Tolerance Assessment Summary caregiver training initiated and DIL was able to assist pt but PT providing cues. Further training is needed and set up for tomorrow at 10 am. informed pt and DIL regarding mobility level for safe d/c: pt to be able to ambulate farther and complete stair safely with assist. pt and DIL understood. will continue to assess progress. Goals Bed Mobility Goal Standby Assistance Transfer Goal Standby Assistance,Front Wheeled Walker Gait Goal Standby Assistance,Front Wheel Walker Gait Distance 150 Other Goals up/down 2 steps without rails: SPC/HOME RESTORATION SERVICE SUPERVISOR CGA up/down 13 steps B rails SBA Days to Meet Goals 10 Frequency of Treatment Frequency Of Treatment Twice a Day Treatment Plan Physical Therapy Treatment Plan Bed Mobility Training,Transfer Training,Gait Training, Therapeutic Exercise,Balance Retraining,Post Op Education, Discharge Planning,Hot or Cold Pack,Neuromuscular Re-ed, Coordination Retraining,Manual Therapy Precautions Lumbar Precautions Log Roll,No Twisting,Limit Bending,Lifting Restriction of 10 lbs,Gait Belt above Incisional Area Recommendations To Nursing Amount of Assist Needed 1 Person Assist Discharge Recommendations PT Discharge Recommendations Home with 24/7 Assist Available,Home Health Equipment Needed for Home Before FWW Discharge Transportation Needs at Discharge Private Vehicle
[2021-07-17] MEDS: GABAPENTIN 600 MG TABLET PO ×2 (15:50→20:52)
--- NOTE | 2021-07-17 15:50 | CM.DANOTE ---
DCP assessment: Patient is a 75 yr old female who has a TLIF preformed by dr.LU- RODRIGUEZ met with patient at the bedside and explained role. Patient was alert and oriented at time of visit. Patient currently lives with her ainrknnb-cc-mhg and son in a two story home in [place]. Patient states that her daughter in law (Constance) is her caregiver. Patient states she is independent at baseline with ADLs and drives but Constance does all the cooking and house work. PT is planning on doing stairs and clinical manager home care training tomorrow with patient and her daughter in law and then DC home. I: [facility] and medicaid plan: Dc home with family and no dC planning needs. Carolina Mendoza RN Case Manger Discharge Planning/Care Management Discharge Assessment Start: 07/17/21 15:48 Freq: Status: Active Protocol: Document 07/17/21 15:49 HS (Rec: 07/17/21 15:50 HS [id number]) Discharge Planning Assessment Assigned Regional Guide Carolina Mendoza RNplant maintenance manager DPOA/Assigned Designee Name Constance Hu -Daughter in law Contact Information [phone] Advance Directives? Yes Advance Directives on File No History Provided By Patient,Family Member,Medical Record Prior Living Arrangements House Household Members family,children Type of transporation used prior to Drives own vehicle admit Independent with ADL's No: Daughter in law helps Needs Assistance With Meal Prep,Home Chores / Shopping Caregiver for Another No DME Already Rented / Owned FWW / Walker Barriers to Discharge No Discharge Plan Home Referrals Initiated None needed Whiteboard Updated in Patient Room with Yes name and ext. # of Regional Guide Review Status In Process Next Review Type Continued Stay Review Pre-Anesthesia Assessment Start: 07/10/21 09:43 Freq: Status: Complete Protocol: Document 07/10/21 09:43 CAB (Rec: 07/10/21 10:03 CAB [id number]) Pre-Anesthesia Assessment Patient Information Reviewed Via Phone Assessment Assessment Completed With Patient,Child Diagnostic Results BMP/CMP,CBC,EKG Comment Labs/E[facility] @ [facility], COVID screen @ [facility] 07/14/21 Primary Care Provider Blanca Bauer Seen Specialist in Last 12 Months Yes Specialist Seen Irrigator Overhead,Emergency,General surgeon,Orthopedist, Elderly Caregiver,Urologist Primary Language Sinhala Preferred Language Sinhala Height 165.1 cm Weight 101.151 kg Body Mass Index (BMI) 37.0 Hearing Ability Hard of Hearing Visual Assist None Dentition Type Teeth, Natural Present Barriers to Learning None Hx Anesthesia Reactions No Hx Family Anesthesia Reaction No Hx Malignant Hyperthermia No Hx Blood Transfusions No Anesthesia Review Requested No Medical Laboratory Technician No alcohol intake current alcohol intake frequency holidays/special occasions only Smoking Status Never smoker Substance Use Type does not use Pain Present Pain Reported Musculoskeletal Symptoms Abnormal Gait,Back Pain, Difficulty Walking,Joint Pain, Muscle Weakness,Radiating Pain into Limb History of Falling (Recent or History of Yes ) Patient is completely paralyzed or No completely immobile Mental Status Oriented to own ability Is patient on oxygen? No Does patient have ANG/SOB Yes Hx Sleep Apnea No CPAP/BIPAP use not prescribed Currently Taking a Beta Rajiv No Can You Climb a Flight of Stairs Without No SOB Hx Chest Pain Yes: Occasional cardiology aware Hx SOB Yes Hx Syncope or Dizziness Yes: Dizziness Anti-Coagulant Therapy No Has a Irrigator Overhead Yes: Dr. Coulter-last visit Cardiac Testing No: Nuc perf @ [facility] 02/04/21, echo @ [facility] 09/30/20 Hx Pacemaker/ICD No Pacemaker Rep Required? No Comment Cardiac records scanned Diet Type At Home Vegetarian dysphagia No Gastrointestinal Symptoms Constipation,Reflux Bladder Pattern Incontinent Urinary Catheter Present No Hx Urinary Self Catheterization No Diabetes No: Pre-diabetes HgbA1C 5.4 Date 07/07/21 Patient No Lactating No Hx Drug Resistant Organism No Presence of External or Internal Medical Yes: bl total knee replacement Devices , dental implants, eye lenses Have you had any close contact with No someone diagnosed with COVID-19? Received a COVID vaccine? Yes: +Booster Received all doses? Yes Marital Status / Lives With children Prior Living Arrangements House Support System Child/Children Does the Patient Have Assistance After Yes Surgery Patient Discharge Plan Description Return Home Comment Pt advised 2 day length of stay per surgeon Feels Safe in Current Environment Yes Been Physically Hurt or Threatened By a No Person in Current Environment Do you have thoughts of harming yourself None or others? Are you currently considering suicide? No Do you have a plan to hurt yourself or No Plan others? Do You Have Any Spiritual Beliefs That No May Affect Your HC Choices? Do You Have Any Cultural Practices That No May Affect Your HC Choices? Comment Hinduism Who Can We Speak to About Patient's Care Family, friends Identifying Code for Release of Patient Declines to issue Information Health Care Proxy/Next of Kin Constance (daughter) Health Care Proxy Emergency Contact Name Constance (daughter) Emergency Contact Advance Directives? No Power of Senior Java J2Ee Developer No PAC Instructions Durable medical equipment, Medications to take/avoid, Nasal antibiotic,No ETOH/ petroleum product on skin DOS, NPO,Post-op transportation, Sensory aids,Sturdy shoes/ comfortable clothes,Do not bring valuables and remove jewelry
[2021-07-17] MEDS: DICYCLOMINE 10 MG CAPSULE PO ×2 (15:51→20:52)
[2021-07-17] MEDS: BUDESONIDE 0.5 MG/2 ML NEB INH (19:57)
[2021-07-17] MEDS: SENNOSIDES 8.6 MG TABLET 17.2 MG PO (20:52)
[2021-07-17] MEDS: DOCUSATE 100 MG CAPSULE PO (20:52)
[2021-07-18] VITALS (7 sets, daily range): BP systolic 125–142; BP diastolic 60–74; PULSE 60–98; RESP 12–20; TEMP 37.1–38.3; O2SAT 94–99
[2021-07-18] MEDS: SODIUM CHLORIDE 0.9% FLUSH 10 ML IV ×2 (01:42→20:38)
[2021-07-18] MEDS: LEVOTHYROXINE 112 MCG TABLET PO (05:31)
[2021-07-18] MEDS: OXYCODONE IR 5 MG TABLET 10 MG PO ×2 (05:35→13:04)
--- NOTE | 2021-07-18 06:39 | PC.NURSE ---
0550 Declined to have her bowen catheter discontinue. States I'll wait until I get up with PT this morning. Will report to day RN.
[2021-07-18] MEDS: ALBUTEROL 2.5 MG/3 ML NEB (ADULT) INH (09:56)
[2021-07-18] MEDS: BUDESONIDE 0.5 MG/2 ML NEB INH (09:57)
--- NOTE | 2021-07-18 10:41 | PT.IPTN ---
Current Diagnoses Other secondary scoliosis, lumbar region (07/16/21) Spinal stenosis, lumbar region without neurogenic claudication (07/16/21) Surgery Performed Operation Date: 07/16/21 12:15 Actual Procedures p L2-3, L3-4 TLIF with posterior instrumentation. - Robot - Reggie Sifuentes MD Physical Therapy Treatment Note M2 PT-IP Current Condition Start: 07/17/21 12:26 Freq: NEEDED Status: Active Protocol: Document 07/17/21 10:25 AB (Rec: 07/17/21 12:48 AB [email or web address]) Physical Therapy Current Condition Current Condition Evaluation Date 07/17/21 Treatment Diagnosis s/p L2-3, L3-4 TLIF; difficulty in walking Onset Date 07/16/21 M3 PT-IP Subjective Start: 07/17/21 12:26 Freq: NEEDED Status: Active Protocol: Document 07/18/21 09:55 KS (Rec: 07/18/21 11:16 KS [id number]) Subjective Physical Therapy Visit Type Type Treatment Note Visit Start Time 09:55 Visit Stop Time 10:41 Total Visit Minutes 46 Number of SWIMMING POOL MAINTENANCE Visits 1 Physical Therapy Visit Comments Patient Comments pt agreed to do PT; DIL in room for caregiver training M4 PT-IP Mobility and Gait Start: 07/17/21 12:26 Freq: NEEDED Status: Active Protocol: Document 07/18/21 09:55 KS (Rec: 07/18/21 11:16 KS [id number]) PT-Bed Mobility Assessment Rolling Type of Rolling Log Rolling Level of Assist Minimal Assistance Supine to Sit Supine to Sit Moderate Assistance,1 Person Assistance Scooting Scooting to Edge of Bed Contact Guard Assistance PT-Transfer Assessment Sit to and From Stand Sit to and from Stand Minimal Assistance,1 Person Assistance,Use of Upper Extremities Equipment Transfer Assistive Device Gait Belt,Front Wheeled Walker Orthotic/Prosthetic Devices or Brace: No Transfers Transfer Destination Chair,Wheelchair Transfer Technique ambulated using FWW Transfer Ability Level of Assist Minimal Assistance,1 Person Assistance,Use of Upper Extremities Comments Mobility Comments Pt in bed upon arrival. Pts DIL provided Min A and cues for logroll and Mod A for sidelying<>sit. Pt able to scoot EOB CGA and pts DIL applied gaitbelt. Min A for sit<>stand w/ FWW. Pt then ambulated ~20 ft to w/c in hallway for transport to stairs. Upon arrival at stairs , pt sit<>stand Min A and reported dizziness. Pt sat back down, BP: 131/75. Pt dizziness subsided and she sit <>Stand again w/ FWW and BP: 75/47 w/ reported dizziness. Pt sat back down in w/c and transported back to room, able to transfer from w/c to chair w/ FWW and CGA and cues provided by pts DIL. BP: 94/55 in sitting and pt reported fatigue. Pt left reclined in chair w/ DIL in room and all needs in reach. Gait Assessment Gait Gait Assistance Required: Contact Guard Assist,1 Person Assist Distance (Feet) 30 Able to Maintain Weight Bearing Status Yes During Gait Assistive Devices Assistive Device Gait Belt,Front Wheeled Walker Orthotic/Prosthetic Devices or Brace: No Gait Deviations General Gait Pattern Antalgic,Ataxic,Decreased Feet Clearance Factors Limiting Gait Function Factors Limiting Gait Function Decreased Activity Tolerance, Decreased Strength,Difficulty Following Directions,Limited Range of Motion,Pain,Poor Balance,Poor Safety Awareness Comments Gait Comments Please refer to mobility section for details. Stair Climbing Assessment Comments Stair Climbing Comments Unable to assess due to low BP . PT-Balance Assessment Sitting Balance and Reactions Static Sitting Balance Ability Good Dynamic Sitting Balance Ability Fair Standing Balance and Reactions Static Standing Balance Ability Poor Dynamic Standing Balance Ability Poor Device Used FWW M5 PT-IP Objective Assessments Start: 07/17/21 12:26 Freq: NEEDED Status: Active Protocol: Document 07/17/21 10:25 AB (Rec: 07/17/21 12:48 AB [id number]) Orientation Orientation/Cognition Level of Alertness Alert Language Function Ability No Deficits Noted Safety Awareness Decreased Safety Awareness Memory Description Short Term Impaired Comments with slight confusion Gross Range of Motion Lower Extremity ROM Assessment Within Functional Limits Strength Lower Extremity Strength Assessment Bilaterally Impaired Hip 3+/5 Knee 4-/5 Coordination Assessment Gross Coordination Gross Coordination WNL Sensation Assessment Sensation Gross Sensation WNL Muscle Tone Muscle Tone WNL Yes M6 PT-IP Treatment Start: 07/17/21 12:26 Freq: NEEDED Status: Active Protocol: Document 07/18/21 09:55 KS (Rec: 07/18/21 11:16 KS [id number]) Physical Therapy Treatment Education Education Provided Precautions,Safety Other Treatments Other Treatment Performed Pt able to recall spinal precautions M7 PT-IP Assessment and Plan Start: 07/17/21 12:26 Freq: NEEDED Status: Active Protocol: Document 07/18/21 09:55 KS (Rec: 07/18/21 11:16 KS [id number]) PT Summary Assessment and Plan Potential Rehabilitation Potential Good Summary Impairments Pain,ROM,Strength,Balance, Coordination,Sensation,Tone, Cognition,Bed Mobility, Transfers,Gait,Activity Tolerance Progress Towards Goals Slow Progress due to Pain,Slow Progress due to Activity Tolerance Assessment Summary Continued caregiver training w / patients DIL who was able to provide appropriate assist and cues for bed mobility and transfers. Pt required CGA to Min A for bed mobility and transfers. Unable to complete stair training this AM due to symptomatic low BP. Pt will need to complete stair training prior to d/c. Goals Bed Mobility Goal Standby Assistance Transfer Goal Standby Assistance,Front Wheeled Walker Gait Goal Standby Assistance,Front Wheel Walker Gait Distance 150 Other Goals up/down 2 steps without rails: SPC/DYEING MACHINE BACK TENDER CGA up/down 13 steps B rails SBA Days to Meet Goals 10 Frequency of Treatment Frequency Of Treatment Twice a Day Treatment Plan Physical Therapy Treatment Plan Bed Mobility Training,Transfer Training,Gait Training, Therapeutic Exercise,Balance Retraining,Post Op Education, Discharge Planning,Hot or Cold Pack,Neuromuscular Re-ed, Coordination Retraining,Manual Therapy Precautions Lumbar Precautions Log Roll,No Twisting,Limit Bending,Lifting Restriction of 10 lbs,Gait Belt above Incisional Area Recommendations To Nursing Amount of Assist Needed 1 Person Assist Discharge Recommendations PT Discharge Recommendations Home with 24/7 Assist Available,Home Health Equipment Needed for Home Before FWW Discharge Transportation Needs at Discharge Private Vehicle
--- NOTE | 2021-07-18 11:00 | OT.IP.TRT ---
Current Diagnoses Other secondary scoliosis, lumbar region (07/16/21) Spinal stenosis, lumbar region without neurogenic claudication (07/16/21) Surgery Performed Operation Date: 07/16/21 12:15 Actual Procedures p L2-3, L3-4 TLIF with posterior instrumentation. - [place] - Reggie Sifuentes MD Occupational Therapy Treatment Note M2 OT-IP Current Condition Start: 07/18/21 11:19 Freq: Status: Active Protocol: Document 07/18/21 11:00 [facility] (Rec: 07/18/21 11:29 [facility] [id number]) Occupational Therapy Current Condition Current Condition Treatment Diagnosis S/p L2-3, L3-4 TLIF Post Operative Precautions Abdominal Surgery Precautions Log Roll,Lifting Restrictions, Gait Belt above Incisional Area M3 OT- IP Subjective and Pain Start: 07/18/21 11:19 Freq: Status: Active Protocol: Document 07/18/21 11:00 [facility] (Rec: 07/18/21 11:29 [facility] [id number]) OT- Subjective Occupational Therapy Visit Type Type Treatment Note Visit Start Time 11:00 Visit Stop Time 11:10 Occupational Therapy Visit Comments Patient Comments Not able to get pt up as having a low BP prior in PT session as trying to do steps earlier. Patient/Caregiver Goals To go home. M4 OT- IP ADL's Start: 07/18/21 11:19 Freq: Status: Active Protocol: Document 07/18/21 11:00 [facility] (Rec: 07/18/21 11:29 [facility] [id number]) OT ADL-Dressing Comments OT Dressing Comments Pt's daughter in law states will be assisting pt for all needs. OT ADL-Toileting Comments OT Toileting Comments Suggested maybe beneficial to get a BSC especially if having low BP. In addition pt to wear adult briefs. OT ADL-Bathing Comments OT Bathing Comments Showed pt's daugther in law tub bench option or may have to sponge off if not feeling well. M6 OT- IP Functional Cognition Start: 07/18/21 11:19 Freq: Status: Active Protocol: Document 07/18/21 11:00 [facility] (Rec: 07/18/21 11:29 [facility] [id number]) Cognitive Factors Limiting Selfcare Function Cognitive Comments Cognitive Assessment Comments Pt is pleasant and able to converse in conversation, however pt's daughter in law has to re explain conversation as Georgian is not her primary language. M9 OT- IP Assessment and Plan Start: 07/18/21 11:19 Freq: Status: Active Protocol: Document 07/18/21 11:29 [facility] (Rec: 07/18/21 11:31 [facility] [id number]) OT Summary Assessment and Plan Summary Assessment Summary Have not been able to see pt get up as having low BP. Able to speak at length with her duaghter in law regarding OT needs and equipment suggestions. To try to see pt for formal OT eval tomorrow if still here. Pt's daughter has good understanding of how to assist the pt for ADL needs. Discharge Recommendations OT Discharge Recommendations Home with 01/03 Assist Available Home Equipment Needs BSC,WC, tub bench Transportation Needs at Discharge Private Vehicle
--- NOTE | 2021-07-18 11:01 | PM.DS.1 ---
History of Present Illness History of Present Illness Date Patient Seen: 07/18/21 Time Patient Seen: 11:01 Chief complaint: Low back pain s/p TLIF Narrative: The patient is complaining of [id number] low back pain this morning. She is feeling much better than yesterday. Her nausea has resolved. Denies any new numbness or tingling. No fevers, chills, night sweats. Discharge Providers Provider Date of admission: 07/16/21 10:52 Discharge Date: 07/18/21 Primary care physician: Blanca Bauer MD Consults: 07/16/21 18:41 Consult to Occupational Therapy Evaluate & Treat Comment: Physician Instructions: Evaluate and treat Consult to Physical Therapy Evaluate & Treat Comment: Physician Instructions: Evaluate and Treat Discharge provider: Nadine Monsalve PA-C Summary Hospital Course Discharge Diagnosis: 1. Lumbar scoliosis 2. Lumbar spinal stenosis with neurogenic claudication Hospital Course: Date of procedure: 07/16/21 Time of procedure: 12:30 Procedure & Clinicians Procedure: 1. L2-3, L3-4 Postero-lateral and posterior interbody fusion 2. L2-3, L3-4 interbody cage placement. 3. L2-3, L3-4 decompressive laminectomy with bilateral facetecomies 4. L2-3, L3-4 Posterior segmental instrumentation 5. [place] of bone marrow from iliac crest 6. Utilization of microsurgical technique and operating microscope Same procedure as scheduled: Yes Indications: Patient has been having chronic back pain and worsening lumbar radiculopathy. Patient failed multiple conservative management with worsening pain weakness and numbness in her lower extremity.? Patient has been having difficulty performing activity of daily living.? After discussing risks benefits of treatment options, patient elected proceed with surgery. Surgeon: Reggie Sifuentes Explosives Mixer Operator: Jeramy Gamboa Click Yes if Unassisted: No Anesthesia Type: General Operative Notes Closure Type: primary Specimen(s): none sent Prosthetic devices, grafts, tissues, transplants, or devices: Globus CREO MIS screws, Rise cages Applied: catheter Estimated Blood Loss (mL): 350 Blood products transfused: none Status at Discharge Cognitive/behavioral status at discharge: oriented Functional status at discharge: uses cane/walker Overall status at discharge: patient is progressing back to baseline Exam Vital Signs (past 8 hours): - 07/18/21 05:15 07/18/21 09:26 07/18/21 09:57 Temperature 99.5 F 100.0 F H Pulse Rate 87 93 H 96 H Respiratory Rate 12 18 20 Blood Pressure 138/60 142/74 H Pulse Oximetry 97 95 97 07/18/21 10:03 Temperature Pulse Rate 98 H Respiratory Rate 20 Blood Pressure Pulse Oximetry Oxygen Delivery Method Room Air Oxygen Flow Rate 0 Narrative Exam Narrative: Pleasant 75-year-old female, resting comfortably in her chair, no acute distress. Her daughter is at bedside. Physical exam demonstrates dressing is roll down and demonstrates some serosanguineous drainage. There is no active bleeding. No signs of hematoma, erythema or janny pus. Bilateral lower extremities: Motor function is grossly intact, sensation is grossly intact to light touch, calves are soft and nontender to palpation. 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 Easy bruisability Eczema Foot pain Heartburn HTN (hypertension) Hyperthyroidism Lower urinary tract symptoms (LUTS) Neck stiffness Postmenopausal atrophic vaginitis Prediabetes Shoulder pain Urge incontinence Surgical History Anesthesia History of bilateral knee replacement History of carpal tunnel repair (2007) History of cataract removal with insertion of prosthetic lens History of surgery (12/03/20) Hx of cholecystectomy S/P foot surgery, right (12/23/18) Family History Brother Age: 65 Prostate cancer Father Cancer Diabetes mellitus Hypertension Stroke Lung cancer Mother Heart disease Hypertension Heart attack Psoriasis Sister Age: 60 Brain tumor Cancer Social History marital status: number of children: 2 household members: family and children occupational status: previously employed and disabled Smoking Status: Never smoker alcohol intake: current substance use type: does not use caffeine: Yes Discharge Assessment & Plan Assessment and Plan Assessment: Stable status post TLIF Plan of Treatment: -mobilize with PT. Limit bending, lifting, twisting. Weightbearing as tolerated front wheel walker -continue with current pain regimen, I encouraged the patient to take her pain medications more frequently to stay ahead of the pain -dressing change -DC catheter -DC home today once cleared by PT and doing stairs Discharge Plan Discharge Plan Patient Disposition: Home Discharge orders & Medications Prescriptions: New acetaminophen 500 mg capsule 500 mg PO Q4H MDD Max 3000 mg per day PRN (Reason: Pain, Mild (1-3)) Qty: 90 0RF docusate sodium 100 mg Capsule 100 mg PO BID PRN (Reason: Constipation from narcotic pain meds) Qty: 20 0RF hydroxyzine pamoate 25 mg Capsule 25 mg PO Q4HR PRN (Reason: Spasms, agitation, nausea) Qty: 40 0RF oxycodone 5 mg Tablet 10 mg PO Q4H PRN (Reason: Pain, Severe (7-10)) Qty: 42 0RF Continued meclizine 25 mg tablet 25 mg PO TID PRN (Reason: dizziness) Qty: 30 2RF PreserVision AREDS 1 EACH capsule 1 sgl PO BID Qty: 0 0RF mecobalamin (vitamin B12) 1,000 mcg tablet,disintegrating 1,000 mcg SL DAILY 0RF dicyclomine 10 mg capsule See Rx Instructions .ROUTE .COMPLEX Qty: 120 0RF Dose Instruction: TAKE 1 CAPSULE BY MOUTH FOUR TIMES A DAY Rx Instructions: TAKE 1 CAPSULE BY MOUTH FOUR TIMES A DAY gabapentin 600 mg tablet See Rx Instructions .ROUTE .COMPLEX Qty: 270 0RF Dose Instruction: TAKE 1 TABLET BY MOUTH THREE TIMES A DAY Label Comments: Pt states only takes bid Rx Instructions: TAKE 1 TABLET BY MOUTH THREE TIMES A DAY levothyroxine 112 mcg tablet See Rx Instructions .ROUTE .COMPLEX Qty: 90 0RF Dose Instruction: TAKE 1 TABLET BY MOUTH ONCE A DAY Rx Instructions: TAKE 1 TABLET BY MOUTH ONCE A DAY albuterol sulfate 90 mcg/actuation HFA aerosol inhaler See Rx Instructions .ROUTE .COMPLEX Qty: 25.5 0RF Dose Instruction: INHALE 2 PUFFS BY MOUTH EVERY 4 HOURS NEEDED Rx Instructions: INHALE 2 PUFFS BY MOUTH EVERY 4 HOURS NEEDED fluoxetine 40 mg capsule See Rx Instructions .ROUTE .COMPLEX Qty: 90 0RF Dose Instruction: TAKE 1 CAPSULE BY MOUTH ONCE A DAY Rx Instructions: TAKE 1 CAPSULE BY MOUTH ONCE A DAY hydrochlorothiazide 25 mg tablet See Rx Instructions .ROUTE .COMPLEX Qty: 90 0RF Dose Instruction: TAKE 1 TABLET BY MOUTH ONCE A DAY Label Comments: Pt states now 12.5mg daily Rx Instructions: TAKE 1 TABLET BY MOUTH ONCE A DAY omeprazole 40 mg capsule,delayed release(DR/EC) See Rx Instructions .ROUTE .COMPLEX Qty: 180 0RF Dose Instruction: TAKE 1 CAPSULE BY MOUTH TWICE A DAY Rx Instructions: TAKE 1 CAPSULE BY MOUTH TWICE A DAY montelukast 10 mg tablet See Rx Instructions .ROUTE .COMPLEX Qty: 90 0RF Dose Instruction: TAKE 1 TABLET BY MOUTH ONCE A DAY Rx Instructions: TAKE 1 TABLET BY MOUTH ONCE A DAY budesonide-formoterol [Symbicort] 80-4.5 mcg/actuation HFA aerosol inhaler 2 puff inhalation BID 0RF Rx Instructions: pt takes at [facility] Disabled Parking Permit 1 dev miscellaneous DIRECTED 0RF ferrous sulfate 325 mg (65 mg iron) Tablet 325 mg PO DAILY 0RF Xolair 150 mg/mL Syringe 300 mg SUBCUT Q4W 0RF Discontinued acetaminophen 500 mg Capsule 1,000 mg PO BID 0RF Follow up/Referrals: Reggie Sifuentes MD [Physician] - (10-14 days for postoperative visit) Blanca Bauer MD [Primary Care Provider] - Diet/Activity/Treatments Diet: Diet as Tolerated and Regular Other treatments: Medications: -OTC Tylenol 500 mg 1 tablet every 4 hours as needed for pain/fever. Max 6 tablets per day. -Oxycodone 5 mg take 1-2 tablets every 4 hours as needed for moderate-severe pain (narcotic pain medication). -As needed medications: -Ducolax and /or MiraLax as needed for constipation from narcotic pain medications. -Pepcid AC as needed for stomach upset. -Vistaril (hydroxyine) 25mg 1 tab every 4 hours as needed for spasms/pain/nausea. Dressing/Wound care: -Keep dressing in place until postoperative follow-up office visit. -Okay to shower. Keep wound out of direct water stream. Can use PressNSeal plastic wrap to protect from shower stream. No soaking or submerging until all the scabs fall off (approximately 6 weeks). -Please call the office if dressing becomes wet, soiled, or saturated. Activities: -Limit bending, lifting, twisting. -Weight-bearing as tolerated. Use front wheeled walker, and progress to cane when safe. -Continue with home exercises as directed by your physical therapist. -Ice your incision as needed for pain/inflammation/swelling. Protect your skin with a folded pillowcase. Follow-up: -Follow-up with your surgeon or PA in the office in 10-14 days after surgery. -Follow-up with your surgeon 6 weeks postoperatively. Call the office if you have chest pain, shortness of breath, significant swelling that will not resolve with elevating, fever over 101?, significantly worsening pain. [facility]: [phone] Skin/Wound/Dressing Care Report to your healthcare provider any signs of infection, such as:: chills, fever, night sweats, unusual drainage and unusual redness Visit Report/Discharge Packet Instructions: DI for Transforaminal Lumbar Interbody Fusion Stand Alone Forms: Surgery Discharge Discharge Data Primary Care Provider: Blanca Bauer Attending Provider: Reggie Sifuentes VTE Deep Vein Thrombosis/Pulmonary Embolism Present on Admission: No
[2021-07-18 12:21] LABS: COVID19 -Nasal RAPID Negative (Negative)
--- NOTE | 2021-07-18 14:10 | PT.IPTN ---
Current Diagnoses Other secondary scoliosis, lumbar region (07/16/21) Spinal stenosis, lumbar region without neurogenic claudication (07/16/21) Surgery Performed Operation Date: 07/16/21 12:15 Actual Procedures p L2-3, L3-4 TLIF with posterior instrumentation. - Robot - Reggie Sifuentes MD Physical Therapy Treatment Note M2 PT-IP Current Condition Start: 07/17/21 12:26 Freq: NEEDED Status: Active Protocol: Document 07/17/21 10:25 AB (Rec: 07/17/21 12:48 AB [id number]) Physical Therapy Current Condition Current Condition Evaluation Date 07/17/21 Treatment Diagnosis s/p L2-3, L3-4 TLIF; difficulty in walking Onset Date 07/16/21 M3 PT-IP Subjective Start: 07/17/21 12:26 Freq: NEEDED Status: Active Protocol: Document 07/18/21 13:56 RBD (Rec: 07/18/21 15:03 RBD [id number]) Subjective Physical Therapy Visit Type Type Treatment Note Visit Start Time 13:56 Visit Stop Time 14:10 Total Visit Minutes 14 Number of TUNNEL MINER Visits 1 Physical Therapy Visit Comments Patient Comments pt agreed to do PT; DIL in room for caregiver training M4 PT-IP Mobility and Gait Start: 07/17/21 12:26 Freq: NEEDED Status: Active Protocol: Document 07/18/21 13:56 RBD (Rec: 07/18/21 15:03 RBD [id number]) PT-Bed Mobility Assessment Rolling Type of Rolling Log Rolling Level of Assist Minimal Assistance,Moderate Assistance Supine to Sit Supine to Sit Moderate Assistance,1 Person Assistance Scooting Scooting to Edge of Bed Contact Guard Assistance PT-Transfer Assessment Sit to and From Stand Sit to and from Stand Minimal Assistance,1 Person Assistance,Use of Upper Extremities Equipment Transfer Assistive Device Gait Belt,Front Wheeled Walker Orthotic/Prosthetic Devices or Brace: No Transfers Transfer Destination Bed Transfer Technique ambulated using FWW Comments Mobility Comments Pt in chair upon arrival and DIL in room. BP in sitting 133 /66. Pt sit<>stand Min A w/ FWW. BP in standing 88/56, however, denied dizziness. Min A transfer to bed w/ FWW. Pt performed evercises supine in bed, ankle pumps x10, glut set x10, SLR, x10. BP 127/66 in supine. All needs left within reach and bed alarm on. Gait Assessment Assistive Devices Assistive Device Gait Belt,Front Wheeled Walker Orthotic/Prosthetic Devices or Brace: No Comments Gait Comments Unable to perform secondary to low BP. PT-Balance Assessment Sitting Balance and Reactions Static Sitting Balance Ability Good Dynamic Sitting Balance Ability Fair Standing Balance and Reactions Static Standing Balance Ability Poor Dynamic Standing Balance Ability Poor Device Used FWW M5 PT-IP Objective Assessments Start: 07/17/21 12:26 Freq: NEEDED Status: Active Protocol: Document 07/17/21 10:25 AB (Rec: 07/17/21 12:48 AB [id number]) Orientation Orientation/Cognition Level of Alertness Alert Language Function Ability No Deficits Noted Safety Awareness Decreased Safety Awareness Memory Description Short Term Impaired Comments with slight confusion Gross Range of Motion Lower Extremity ROM Assessment Within Functional Limits Strength Lower Extremity Strength Assessment Bilaterally Impaired Hip 3+/5 Knee 4-/5 Coordination Assessment Gross Coordination Gross Coordination WNL Sensation Assessment Sensation Gross Sensation WNL Muscle Tone Muscle Tone WNL Yes M6 PT-IP Treatment Start: 07/17/21 12:26 Freq: NEEDED Status: Active Protocol: Document 07/18/21 13:56 RBD (Rec: 07/18/21 15:03 RBD [id number]) Physical Therapy Treatment Exercises Exercises Ankle Pumps,Gluteal Sets, Straight Leg Raises Education Education Provided Precautions,Safety Other Treatments Other Treatment Performed Pt able to recall spinal precautions M7 PT-IP Assessment and Plan Start: 07/17/21 12:26 Freq: NEEDED Status: Active Protocol: Document 07/18/21 13:56 RBD (Rec: 07/18/21 15:03 RBD [id number]) PT Summary Assessment and Plan Potential Rehabilitation Potential Good Summary Impairments Pain,ROM,Strength,Balance, Coordination,Sensation,Tone, Cognition,Bed Mobility, Transfers,Gait,Activity Tolerance Progress Towards Goals Slow Progress due to Pain,Slow Progress due to Activity Tolerance Assessment Summary Pt was drowsy at the start of treatment, likely do to pain medications. Unble to ambulate seondary to low BP upon standing. Patient performed exercises supine in bed following transfer w/o c/o dizziness. Pt attamped ambulation and stairs agian tomorrow. Pt and caregiver will need to complete stair trianing prior to discarge. Goals Bed Mobility Goal Standby Assistance Transfer Goal Standby Assistance,Front Wheeled Walker Gait Goal Standby Assistance,Front Wheel Walker Gait Distance 150 Other Goals up/down 2 steps without rails: SPC/POST PARTUM NURSE CGA up/down 13 steps B rails SBA Days to Meet Goals 10 Frequency of Treatment Frequency Of Treatment Twice a Day Treatment Plan Physical Therapy Treatment Plan Bed Mobility Training,Transfer Training,Gait Training, Therapeutic Exercise,Balance Retraining,Post Op Education, Discharge Planning,Hot or Cold Pack,Neuromuscular Re-ed, Coordination Retraining,Manual Therapy Precautions Lumbar Precautions Log Roll,No Twisting,Limit Bending,Lifting Restriction of 10 lbs,Gait Belt above Incisional Area Recommendations To Nursing Amount of Assist Needed 1 Person Assist Discharge Recommendations PT Discharge Recommendations Home with 01/03 Assist Available,Home Health Equipment Needed for Home Before FWW Discharge Transportation Needs at Discharge Private Vehicle
[2021-07-18] MEDS: GABAPENTIN 600 MG TABLET PO ×2 (18:35→20:39)
[2021-07-18] MEDS: DICYCLOMINE 10 MG CAPSULE PO ×2 (18:35→20:37)
[2021-07-18] MEDS: SENNOSIDES 8.6 MG TABLET 17.2 MG PO (20:39)
[2021-07-18] MEDS: DOCUSATE 100 MG CAPSULE PO (20:39)
[2021-07-18] MEDS: ACETAMINOPHEN 325 MG TABLET 650 MG PO (20:49)
[2021-07-19] VITALS (12 sets, daily range): BP systolic 74–153; BP diastolic 45–88; PULSE 67–112; RESP 14–18; TEMP 37–37.9; O2SAT 96–100
[2021-07-19] MEDS: LEVOTHYROXINE 112 MCG TABLET PO (05:08)
[2021-07-19] MEDS: MONTELUKAST 10 MG TABLET PO (08:31)
[2021-07-19] MEDS: CYANOCOBALAMIN (VITAMIN B-12) 500 MCG TABLET 1000 MCG PO (08:31)
[2021-07-19] MEDS: FLUoxetine 20 MG CAPSULE PO (08:31)
[2021-07-19] MEDS: GABAPENTIN 600 MG TABLET PO ×3 (08:31→20:00)
[2021-07-19] MEDS: DOCUSATE 100 MG CAPSULE PO ×2 (08:31→20:00)
[2021-07-19] MEDS: DICYCLOMINE 10 MG CAPSULE PO ×4 (08:32→20:00)
[2021-07-19] MEDS: VIT C/E/ZN/COPPR/LUTEIN/ZEAXAN CAPSULE 1 CAP PO (08:32)
[2021-07-19] MEDS: ACETAMINOPHEN 325 MG TABLET 650 MG PO ×2 (08:39→20:42)
[2021-07-19] MEDS: MAGNESIUM HYDROXIDE 30 ML UDC PO ×2 (08:39→17:21)
[2021-07-19] MEDS: OXYCODONE IR 5 MG TABLET 10 MG PO (08:39)
[2021-07-19] MEDS: SODIUM CHLORIDE 0.9% FLUSH 10 ML IV ×2 (08:40→20:00)
[2021-07-19] MEDS: ALBUTEROL 2.5 MG/3 ML NEB (ADULT) INH ×2 (08:56→20:51)
[2021-07-19] MEDS: BUDESONIDE 0.5 MG/2 ML NEB INH ×2 (08:56→20:51)
[2021-07-19 09:43] LABS: Appearance Urine UA CLEAR; Bilirubin Urine UA NEGATIVE (NEGATIVE); Color Urine UA YELLOW; Glucose Urine UA NEGATIVE (Negative); Ketones Urine UA NEGATIVE (NEGATIVE); Leukocyte Esterase Urine UA NEGATIVE (NEGATIVE); Nitrite Urine UA NEGATIVE (Negative); Occult Blood Urine UA TRACE-LYSED (Negative); Protein Urine UA TRACE (Negative); Specific Gravity Urine UA 1.015 (1.000-1.035); Urobilinogen Urine UA 0.2 E.U./dL (0.2)
[2021-07-19 09:47] LABS: pH Urine UA 7.5 (4.5-8.0)
[2021-07-19 09:50] LABS: Bacteria Urine None Seen; RBC Urine 0-1/HPF (0-5/HPF); Squamous Epithelial Cell Urine 0-1 /HPF (0-5/HPF); WBC Urine 0-1/HPF (0-5/HPF)
[2021-07-19 09:51] LABS: Culture Indicated Urine Cult Not Indicated
--- NOTE | 2021-07-19 10:14 | DI.US.S_ITS ---
PROCEDURE: US PERIPH VENOUS LOW EXTREM BI INDICATIONS: BILATERAL CALF SWELLING/PAIN. STATUS POST TLIF SX TECHNIQUE: Real-time imaging, as well as color and pulse Doppler interrogation, were performed of the deep veins of both legs from the inguinal ligament to the popliteal fossa. COMPARISON: None. FINDINGS: Right: The common femoral, femoral and popliteal veins are normally compressible, and free of intraluminal thrombus. Color and pulse Doppler demonstrate normal phasic intravascular flow. There is normal augmentation response to distal compression maneuver. Left: The common femoral, femoral and popliteal veins are normally compressible, and free of intraluminal thrombus. Color and pulse Doppler demonstrate normal phasic intravascular flow. There is normal augmentation response to distal compression maneuver. IMPRESSION: No evidence of lower extremity DVT. Dictated by: Salima Cristina M.D. on 07/19/2021 at 14:19 Approved by: Salima Cristina M.D. on 07/19/2021 at 14:20
--- NOTE | 2021-07-19 10:20 | PM.DS.1 ---
History of Present Illness History of Present Illness Date Patient Seen: 07/19/21 Time Patient Seen: 10:20 Chief complaint: Low back pain s/p TLIF Narrative: The patient is complaining of [id number] low back pain this morning. She is feeling much better than yesterday. Her nausea has resolved. Denies any new numbness or tingling. No fevers, chills, night sweats. She did have a low-grade temperature last night of 101.0. UA was negative this morning. Discharge Providers Provider Date of admission: 07/16/21 10:52 Discharge Date: 07/19/21 Primary care physician: Blanca Bauer MD Consults: 07/16/21 18:41 Consult to Occupational Therapy Evaluate & Treat Comment: Physician Instructions: Evaluate and treat Consult to Physical Therapy Evaluate & Treat Comment: Physician Instructions: Evaluate and Treat Discharge provider: Nadine Monsalve PA-C Summary Hospital Course Discharge Diagnosis: 1. Lumbar scoliosis 2. Lumbar spinal stenosis with neurogenic claudication Hospital Course: Date of procedure: 07/16/21 Time of procedure: 12:30 Procedure & Clinicians Procedure: 1. L2-3, L3-4 Postero-lateral and posterior interbody fusion 2. L2-3, L3-4 interbody cage placement. 3. L2-3, L3-4 decompressive laminectomy with bilateral facetecomies 4. L2-3, L3-4 Posterior segmental instrumentation 5. [place] of bone marrow from iliac crest 6. Utilization of microsurgical technique and operating microscope Same procedure as scheduled: Yes Indications: Patient has been having chronic back pain and worsening lumbar radiculopathy. Patient failed multiple conservative management with worsening pain weakness and numbness in her lower extremity.? Patient has been having difficulty performing activity of daily living.? After discussing risks benefits of treatment options, patient elected proceed with surgery. Surgeon: Reggie Sifuentes Grades 6 Through 8 Teacher: Jeramy Gamboa Click Yes if Unassisted: No Anesthesia Type: General Operative Notes Closure Type: primary Specimen(s): none sent Prosthetic devices, grafts, tissues, transplants, or devices: Globus CREO MIS screws, Rise cages Applied: catheter Estimated Blood Loss (mL): 350 Blood products transfused: none Status at Discharge Cognitive/behavioral status at discharge: oriented Functional status at discharge: uses cane/walker Overall status at discharge: patient is progressing back to baseline Exam Vital Signs (past 8 hours): - 12/11/21 05:05 07/19/21 07:00 07/19/21 08:56 Temperature 99.2 F 99.4 F Pulse Rate 88 88 67 Respiratory Rate 16 18 14 Blood Pressure 139/76 147/86 H Pulse Oximetry 99 97 97 Oxygen Delivery Method Room Air Oxygen Flow Rate 0 Narrative Exam Narrative: Pleasant 75-year-old female, resting comfortably in bed, no acute distress. Daughter is at bedside. Incision is clean, dry, intact. The dressing will need to be reapplied before she is discharged. Bilateral lower extremities: Motor function is grossly intact, sensation is grossly intact to light touch, set calves are soft but mildly tender to palpation which patient states is new. She had a low-grade temperature of a 101.0?. Objective Labs Result Diagrams: 07/17/21 06:20 Labs: Laboratory Results - last 24 hr 07/18/21 07/19/21 11:30 09:39 Urine Color Yellow Urine Appearance Clear Urine pH 7.5 Ur Specific [place] 1.015 Urine Protein Trace H Urine Glucose (UA) Negative Urine Ketones Negative Urine Occult Blood Trace-lysed Urine Nitrate Negative Urine Bilirubin Negative Urine Urobilinogen 0.2 Ur Leukocyte Esterase Negative Urine RBC 0-1/hpf Urine WBC 0-1/hpf Ur Squamous Epith Cells 0-1 /hpf Urine Bacteria None seen Ur Culture Indicated? 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 Easy bruisability Eczema Foot pain Heartburn HTN (hypertension) Hyperthyroidism Lower urinary tract symptoms (LUTS) Neck stiffness Postmenopausal atrophic vaginitis Prediabetes Shoulder pain Urge incontinence Surgical History Anesthesia History of bilateral knee replacement History of carpal tunnel repair (2007) History of cataract removal with insertion of prosthetic lens History of surgery (12/03/20) Hx of cholecystectomy S/P foot surgery, right (12/23/18) Family History Brother Age: 65 Prostate cancer Father Cancer Diabetes mellitus Hypertension Stroke Lung cancer Mother Heart disease Hypertension Heart attack Psoriasis Sister Age: 60 Brain tumor Cancer Social History marital status: number of children: 2 household members: family and children occupational status: previously employed and disabled Smoking Status: Never smoker alcohol intake: current substance use type: does not use caffeine: Yes Discharge Assessment & Plan Assessment and Plan Assessment: Stable status post TLIF -orthostatic hypotension -low-grade fever of 101.0 Plan of Treatment: -mobilize with PT. Limit bending, lifting, twisting. Weightbearing as tolerated with front wheel walker -monitor for orthostatic hypertension -bilateral lower extremity ultrasounds to rule out DVT today -encourage incentive spirometer, as this could be a cause of her low-grade temperature. The did not the patient denies any chest pain or shortness of breath -UA was negative -DC home once cleared by PT and negative ultrasound Discharge Plan Discharge Plan Patient Disposition: Home Discharge orders & Medications Prescriptions: New acetaminophen 500 mg capsule 500 mg PO Q4H MDD Max 3000 mg per day PRN (Reason: Pain, Mild (1-3)) Qty: 90 0RF docusate sodium 100 mg Capsule 100 mg PO BID PRN (Reason: Constipation from narcotic pain meds) Qty: 20 0RF hydroxyzine pamoate 25 mg Capsule 25 mg PO Q4HR PRN (Reason: Spasms, agitation, nausea) Qty: 40 0RF oxycodone 5 mg Tablet 10 mg PO Q4H PRN (Reason: Pain, Severe (7-10)) Qty: 42 0RF Continued meclizine 25 mg tablet 25 mg PO TID PRN (Reason: dizziness) Qty: 30 2RF PreserVision AREDS 1 EACH capsule 1 sgl PO BID Qty: 0 0RF mecobalamin (vitamin B12) 1,000 mcg tablet,disintegrating 1,000 mcg SL DAILY 0RF dicyclomine 10 mg capsule See Rx Instructions .ROUTE .COMPLEX Qty: 120 0RF Dose Instruction: TAKE 1 CAPSULE BY MOUTH FOUR TIMES A DAY Rx Instructions: TAKE 1 CAPSULE BY MOUTH FOUR TIMES A DAY gabapentin 600 mg tablet See Rx Instructions .ROUTE .COMPLEX Qty: 270 0RF Dose Instruction: TAKE 1 TABLET BY MOUTH THREE TIMES A DAY Label Comments: Pt states only takes bid Rx Instructions: TAKE 1 TABLET BY MOUTH THREE TIMES A DAY levothyroxine 112 mcg tablet See Rx Instructions .ROUTE .COMPLEX Qty: 90 0RF Dose Instruction: TAKE 1 TABLET BY MOUTH ONCE A DAY Rx Instructions: TAKE 1 TABLET BY MOUTH ONCE A DAY albuterol sulfate 90 mcg/actuation HFA aerosol inhaler See Rx Instructions .ROUTE .COMPLEX Qty: 25.5 0RF Dose Instruction: INHALE 2 PUFFS BY MOUTH EVERY 4 HOURS NEEDED Rx Instructions: INHALE 2 PUFFS BY MOUTH EVERY 4 HOURS NEEDED fluoxetine 40 mg capsule See Rx Instructions .ROUTE .COMPLEX Qty: 90 0RF Dose Instruction: TAKE 1 CAPSULE BY MOUTH ONCE A DAY Rx Instructions: TAKE 1 CAPSULE BY MOUTH ONCE A DAY hydrochlorothiazide 25 mg tablet See Rx Instructions .ROUTE .COMPLEX Qty: 90 0RF Dose Instruction: TAKE 1 TABLET BY MOUTH ONCE A DAY Label Comments: Pt states now 12.5mg daily Rx Instructions: TAKE 1 TABLET BY MOUTH ONCE A DAY omeprazole 40 mg capsule,delayed release(DR/EC) See Rx Instructions .ROUTE .COMPLEX Qty: 180 0RF Dose Instruction: TAKE 1 CAPSULE BY MOUTH TWICE A DAY Rx Instructions: TAKE 1 CAPSULE BY MOUTH TWICE A DAY montelukast 10 mg tablet See Rx Instructions .ROUTE .COMPLEX Qty: 90 0RF Dose Instruction: TAKE 1 TABLET BY MOUTH ONCE A DAY Rx Instructions: TAKE 1 TABLET BY MOUTH ONCE A DAY budesonide-formoterol [Symbicort] 80-4.5 mcg/actuation HFA aerosol inhaler 2 puff inhalation BID 0RF Rx Instructions: pt takes at [facility] Disabled Parking Permit 1 dev miscellaneous DIRECTED 0RF ferrous sulfate 325 mg (65 mg iron) Tablet 325 mg PO DAILY 0RF Xolair 150 mg/mL Syringe 300 mg SUBCUT Q4W 0RF Discontinued acetaminophen 500 mg Capsule 1,000 mg PO BID 0RF Follow up/Referrals: Reggie Sifuentes MD [Physician] - (10-14 days for postoperative visit) Blanca Bauer MD [Primary Care Provider] - Diet/Activity/Treatments Diet: Diet as Tolerated and Regular Other treatments: Medications: -OTC Tylenol 500 mg 1 tablet every 4 hours as needed for pain/fever. Max 6 tablets per day. -Oxycodone 5 mg take 1-2 tablets every 4 hours as needed for moderate-severe pain (narcotic pain medication). -As needed medications: -Ducolax and /or MiraLax as needed for constipation from narcotic pain medications. -Pepcid AC as needed for stomach upset. -Vistaril (hydroxyine) 25mg 1 tab every 4 hours as needed for spasms/pain/nausea. Dressing/Wound care: -Keep dressing in place until postoperative follow-up office visit. -Okay to shower. Keep wound out of direct water stream. Can use PressNSeal plastic wrap to protect from shower stream. No soaking or submerging until all the scabs fall off (approximately 6 weeks). -Please call the office if dressing becomes wet, soiled, or saturated. Activities: -Limit bending, lifting, twisting. -Weight-bearing as tolerated. Use front wheeled walker, and progress to cane when safe. -Continue with home exercises as directed by your physical therapist. -Ice your incision as needed for pain/inflammation/swelling. Protect your skin with a folded pillowcase. Follow-up: -Follow-up with your surgeon or PA in the office in 10-14 days after surgery. -Follow-up with your surgeon 6 weeks postoperatively. Call the office if you have chest pain, shortness of breath, significant swelling that will not resolve with elevating, fever over 101?, significantly worsening pain. [facility] Orth[facility]ics: [phone] Skin/Wound/Dressing Care Report to your healthcare provider any signs of infection, such as:: chills, fever, night sweats, unusual drainage and unusual redness Visit Report/Discharge Packet Instructions: DI for Prescription Opioid Use, DI for Transforaminal Lumbar Interbody Fusion Stand Alone Forms: Surgery Discharge Discharge Data Primary Care Provider: Blanca Bauer Attending Provider: Reggie Sifuentes VTE Deep Vein Thrombosis/Pulmonary Embolism Present on Admission: No
--- NOTE | 2021-07-19 10:29 | PT.IPTN ---
Current Diagnoses Other secondary scoliosis, lumbar region (07/16/21) Spinal stenosis, lumbar region without neurogenic claudication (07/16/21) Frequency of micturition (07/16/21) Surgery Performed Operation Date: 07/16/21 12:15 Actual Procedures p L2-3, L3-4 TLIF with posterior instrumentation. - Robot - Reggie Sifuentes MD Physical Therapy Treatment Note M2 PT-IP Current Condition Start: 07/17/21 12:26 Freq: NEEDED Status: Active Protocol: Document 07/17/21 10:25 AB (Rec: 07/17/21 12:48 AB [email or web address]) Physical Therapy Current Condition Current Condition Evaluation Date 07/17/21 Treatment Diagnosis s/p L2-3, L3-4 TLIF; difficulty in walking Onset Date 07/16/21 M3 PT-IP Subjective Start: 07/17/21 12:26 Freq: NEEDED Status: Active Protocol: Document 07/19/21 10:35 KS (Rec: 07/19/21 12:13 KS [id number]) Subjective Physical Therapy Visit Type Type Treatment Note Visit Start Time 10:35 Visit Stop Time 10:59 Total Visit Minutes 24 Notes Partial co-treat w/ OT Number of HOSPITAL SUPERVISOR Visits 3 Physical Therapy Visit Comments Patient Comments pt agreed to do PT; DIL in room for caregiver training M4 PT-IP Mobility and Gait Start: 07/17/21 12:26 Freq: NEEDED Status: Active Protocol: Document 07/19/21 10:35 KS (Rec: 07/19/21 12:13 KS [id number]) PT-Bed Mobility Assessment Rolling Type of Rolling Log Rolling Level of Assist Moderate Assistance,1 Person Assistance Sit to Supine Sit to Supine Maximum Assistance,2 Person Assistance Scooting Scooting to Edge of Bed Contact Guard Assistance PT-Transfer Assessment Sit to and From Stand Sit to and from Stand Minimal Assistance,1 Person Assistance,Use of Upper Extremities Equipment Transfer Assistive Device Gait Belt,Front Wheeled Walker Orthotic/Prosthetic Devices or Brace: No Transfers Transfer Destination Bed,Wheelchair Transfer Technique ambulated using FWW Comments Mobility Comments Pt up ambulating w/ FWW and OT in room upon arrival. BP assessed in standing and 80/46 . Pt instructed to sit down in w/c, required Min A for slow descent. BP sittin/56, pt sit<>stand again and BP: 82/ 45, this time reporting increased dizziness. Pt performed stand step pivot to bed, unable to take steps laterally towards HOB due to lightheadedness. Pt Max A x2 for sit<>sup and scooting up in bed. Pt placed in trendelenberg, BP: 106/62, bed leveled and BP: 100/60. Pt tearful and reporting high level of fatigue. Left in bed w/ all needs in reach and DIL in room. Notified RN of symptomatic low BP. Gait Assessment Gait Gait Assistance Required: Moderate Assistance,2 Person Assist Distance (Feet) 10 Able to Maintain Weight Bearing Status Yes During Gait Assistive Devices Assistive Device Gait Belt,Front Wheeled Walker Orthotic/Prosthetic Devices or Brace: No Gait Deviations General Gait Pattern Antalgic,Ataxic,Decreased Feet Clearance Factors Limiting Gait Function Factors Limiting Gait Function Decreased Activity Tolerance, Decreased Strength,Difficulty Following Directions,Limited Range of Motion,Pain,Poor Balance,Poor Safety Awareness Comments Gait Comments Increased asssit for safety due to dizziness and low BP. Stair Climbing Assessment Comments Stair Climbing Comments Unable to assess due to low BP . PT-Balance Assessment Sitting Balance and Reactions Static Sitting Balance Ability Good Dynamic Sitting Balance Ability Fair Standing Balance and Reactions Static Standing Balance Ability Fair Dynamic Standing Balance Ability Poor Device Used FWW M5 PT-IP Objective Assessments Start: 07/17/21 12:26 Freq: NEEDED Status: Active Protocol: Document 07/17/21 10:25 AB (Rec: 07/17/21 12:48 AB [id number]) Orientation Orientation/Cognition Level of Alertness Alert Language Function Ability No Deficits Noted Safety Awareness Decreased Safety Awareness Memory Description Short Term Impaired Comments with slight confusion Gross Range of Motion Lower Extremity ROM Assessment Within Functional Limits Strength Lower Extremity Strength Assessment Bilaterally Impaired Hip 3+/5 Knee 4-/5 Coordination Assessment Gross Coordination Gross Coordination WNL Sensation Assessment Sensation Gross Sensation WNL Muscle Tone Muscle Tone WNL Yes M6 PT-IP Treatment Start: 07/17/21 12:26 Freq: NEEDED Status: Active Protocol: Document 07/19/21 10:35 KS (Rec: 07/19/21 12:13 KS [id number]) Physical Therapy Treatment Education Education Provided Precautions,Safety Other Treatments Other Treatment Performed Pt able to recall spinal precautions M7 PT-IP Assessment and Plan Start: 07/17/21 12:26 Freq: NEEDED Status: Active Protocol: Document 07/19/21 10:35 KS (Rec: 07/19/21 12:13 KS [id number]) PT Summary Assessment and Plan Potential Rehabilitation Potential Good Summary Impairments Pain,ROM,Strength,Balance, Coordination,Sensation,Tone, Cognition,Bed Mobility, Transfers,Gait,Activity Tolerance Progress Towards Goals Slow Progress due to Medical Issues,Slow Progress due to Activity Tolerance Assessment Summary Pt continues to be limited in mobility due to symptomatic low BP. Pts DIL showing good recall for caregiver training and able to assist pt w/ mobility, however pt required Max A x2 for sit<>sup by this HOSPITAL SUPERVISOR and OT today due to lightheadedness. Pt will need to complete stair training prior t d/c, but at this point is not safe to do so. Goals Bed Mobility Goal Standby Assistance Transfer Goal Standby Assistance,Front Wheeled Walker Gait Goal Standby Assistance,Front Wheel Walker Gait Distance 150 Other Goals up/down 2 steps without rails: SPC/PANTOGRAPH TRANSFERRER CGA up/down 13 steps B rails SBA Days to Meet Goals 10 Frequency of Treatment Frequency Of Treatment Twice a Day Treatment Plan Physical Therapy Treatment Plan Bed Mobility Training,Transfer Training,Gait Training, Therapeutic Exercise,Balance Retraining,Post Op Education, Discharge Planning,Hot or Cold Pack,Neuromuscular Re-ed, Coordination Retraining,Manual Therapy Precautions Lumbar Precautions Log Roll,No Twisting,Limit Bending,Lifting Restriction of 10 lbs,Gait Belt above Incisional Area Recommendations To Nursing Amount of Assist Needed 1 Person Assist Discharge Recommendations PT Discharge Recommendations Home with 24/ Assist Available,Home Health Equipment Needed for Home Before FWW Discharge Transportation Needs at Discharge Private Vehicle
--- NOTE | 2021-07-19 10:59 | PT.IPTN ---
Current Diagnoses Other secondary scoliosis, lumbar region (07/16/21) Spinal stenosis, lumbar region without neurogenic claudication (07/16/21) Frequency of micturition (07/16/21) Surgery Performed Operation Date: 07/16/21 12:15 Actual Procedures p L2-3, L3-4 TLIF with posterior instrumentation. - Robot - Reggie Sifuentes MD Physical Therapy Treatment Note M2 PT-IP Current Condition Start: 07/17/21 12:26 Freq: NEEDED Status: Active Protocol: Document 07/17/21 10:25 AB (Rec: 07/17/21 12:48 AB [email or web address]) Physical Therapy Current Condition Current Condition Evaluation Date 07/17/21 Treatment Diagnosis s/p L2-3, L3-4 TLIF; difficulty in walking Onset Date 07/16/21 M3 PT-IP Subjective Start: 07/17/21 12:26 Freq: NEEDED Status: Active Protocol: Document 07/19/21 10:35 KS (Rec: 07/19/21 12:13 KS [id number]) Subjective Physical Therapy Visit Type Type Treatment Note Visit Start Time 10:35 Visit Stop Time 10:59 Total Visit Minutes 24 Notes Partial co-treat w/ OT Number of PEST CONTROLLER Visits 3 Physical Therapy Visit Comments Patient Comments pt agreed to do PT; DIL in room for caregiver training M4 PT-IP Mobility and Gait Start: 07/17/21 12:26 Freq: NEEDED Status: Active Protocol: Document 07/19/21 10:35 KS (Rec: 07/19/21 12:13 KS [id number]) PT-Bed Mobility Assessment Rolling Type of Rolling Log Rolling Level of Assist Moderate Assistance,1 Person Assistance Sit to Supine Sit to Supine Maximum Assistance,2 Person Assistance Scooting Scooting to Edge of Bed Contact Guard Assistance PT-Transfer Assessment Sit to and From Stand Sit to and from Stand Minimal Assistance,1 Person Assistance,Use of Upper Extremities Equipment Transfer Assistive Device Gait Belt,Front Wheeled Walker Orthotic/Prosthetic Devices or Brace: No Transfers Transfer Destination Bed,Wheelchair Transfer Technique ambulated using FWW Comments Mobility Comments Pt up ambulating w/ FWW and OT in room upon arrival. BP assessed in standing and 80/46 . Pt instructed to sit down in w/c, required Min A for slow descent. BP sittin/56, pt sit<>stand again and BP: 82/ 45, this time reporting increased dizziness. Pt performed stand step pivot to bed, unable to take steps laterally towards HOB due to lightheadedness. Pt Max A x2 for sit<>sup and scooting up in bed. Pt placed in trendelenberg, BP: 106/62, bed leveled and BP: 100/60. Pt tearful and reporting high level of fatigue. Left in bed w/ all needs in reach and DIL in room. Notified RN of symptomatic low BP. Gait Assessment Gait Gait Assistance Required: Moderate Assistance,2 Person Assist Distance (Feet) 10 Able to Maintain Weight Bearing Status Yes During Gait Assistive Devices Assistive Device Gait Belt,Front Wheeled Walker Orthotic/Prosthetic Devices or Brace: No Gait Deviations General Gait Pattern Antalgic,Ataxic,Decreased Feet Clearance Factors Limiting Gait Function Factors Limiting Gait Function Decreased Activity Tolerance, Decreased Strength,Difficulty Following Directions,Limited Range of Motion,Pain,Poor Balance,Poor Safety Awareness Comments Gait Comments Increased asssit for safety due to dizziness and low BP. Stair Climbing Assessment Comments Stair Climbing Comments Unable to assess due to low BP . PT-Balance Assessment Sitting Balance and Reactions Static Sitting Balance Ability Good Dynamic Sitting Balance Ability Fair Standing Balance and Reactions Static Standing Balance Ability Fair Dynamic Standing Balance Ability Poor Device Used FWW M5 PT-IP Objective Assessments Start: 07/17/21 12:26 Freq: NEEDED Status: Active Protocol: Document 07/17/21 10:25 AB (Rec: 07/17/21 12:48 AB [id number]) Orientation Orientation/Cognition Level of Alertness Alert Language Function Ability No Deficits Noted Safety Awareness Decreased Safety Awareness Memory Description Short Term Impaired Comments with slight confusion Gross Range of Motion Lower Extremity ROM Assessment Within Functional Limits Strength Lower Extremity Strength Assessment Bilaterally Impaired Hip 3+/5 Knee 4-/5 Coordination Assessment Gross Coordination Gross Coordination WNL Sensation Assessment Sensation Gross Sensation WNL Muscle Tone Muscle Tone WNL Yes M6 PT-IP Treatment Start: 07/17/21 12:26 Freq: NEEDED Status: Active Protocol: Document 07/19/21 10:35 KS (Rec: 07/19/21 12:13 KS [id number]) Physical Therapy Treatment Education Education Provided Precautions,Safety Other Treatments Other Treatment Performed Pt able to recall spinal precautions M7 PT-IP Assessment and Plan Start: 07/17/21 12:26 Freq: NEEDED Status: Active Protocol: Document 07/19/21 10:35 KS (Rec: 07/19/21 12:13 KS [id number]) PT Summary Assessment and Plan Potential Rehabilitation Potential Good Summary Impairments Pain,ROM,Strength,Balance, Coordination,Sensation,Tone, Cognition,Bed Mobility, Transfers,Gait,Activity Tolerance Progress Towards Goals Slow Progress due to Medical Issues,Slow Progress due to Activity Tolerance Assessment Summary Pt continues to be limited in mobility due to symptomatic low BP. Pts DIL showing good recall for caregiver training and able to assist pt w/ mobility, however pt required Max A x2 for sit<>sup by this PEST CONTROLLER and OT today due to lightheadedness. Pt will need to complete stair training prior t d/c, but at this point is not safe to do so. Goals Bed Mobility Goal Standby Assistance Transfer Goal Standby Assistance,Front Wheeled Walker Gait Goal Standby Assistance,Front Wheel Walker Gait Distance 150 Other Goals up/down 2 steps without rails: SPC/REED POLISHER CGA up/down 13 steps B rails SBA Days to Meet Goals 10 Frequency of Treatment Frequency Of Treatment Twice a Day Treatment Plan Physical Therapy Treatment Plan Bed Mobility Training,Transfer Training,Gait Training, Therapeutic Exercise,Balance Retraining,Post Op Education, Discharge Planning,Hot or Cold Pack,Neuromuscular Re-ed, Coordination Retraining,Manual Therapy Precautions Lumbar Precautions Log Roll,No Twisting,Limit Bending,Lifting Restriction of 10 lbs,Gait Belt above Incisional Area Recommendations To Nursing Amount of Assist Needed 1 Person Assist Discharge Recommendations PT Discharge Recommendations Home with 24/ Assist Available,Home Health Equipment Needed for Home Before FWW Discharge Transportation Needs at Discharge Private Vehicle
--- NOTE | 2021-07-19 11:00 | OT.IP.EVAL ---
Current Diagnoses Other secondary scoliosis, lumbar region (07/16/21) Spinal stenosis, lumbar region without neurogenic claudication (07/16/21) Frequency of micturition (07/16/21) Surgery Performed Operation Date: 07/16/21 12:15 Actual Procedures p L2-3, L3-4 TLIF with posterior instrumentation. 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 Easy bruisability Eczema Foot pain Heartburn History of bilateral knee replacement History of cataract removal with insertion of prosthetic lens History of surgery (12/03/20) HTN (hypertension) Hx of cholecystectomy Hyperthyroidism Lower urinary tract symptoms (LUTS) Neck stiffness Postmenopausal atrophic vaginitis Prediabetes S/P foot surgery, right (12/23/18) Shoulder pain Urge incontinence Surgical History (Last Reviewed 07/19/21 @ 10:22 by Nadine Monsalve PA-C) Anesthesia History of bilateral knee replacement History of carpal tunnel repair (2007) History of cataract removal with insertion of prosthetic lens History of surgery (12/03/20) Hx of cholecystectomy S/P foot surgery, right (12/23/18) Occupational Therapy Inpatient Evaluation/Re-Eval M1 PT/OT-IP Prior Functional Status Start: 07/17/21 12:26 Freq: NEEDED Status: Active Protocol: Document 07/19/21 10:21 [facility] (Rec: 07/19/21 11:50 [facility] [id number]) Medical Review Prior Functional Status Medical History Reviewed Yes Communication able to make needs known Mobility and Gait pt stated that she is modified independent with all mobilities and ambulation without AD but has h/o falls and last fall was ~ 5 days ago Activities of Daily Living and IADL's Prior pt able to care for herself but has family present to assist her as needed. Social History Household Members family,children Living Arrangements House Number of Floors (Floors) Two Floors Number of Stairs To Enter/Railing? 2 steps without rails to enter 13 steps with B rails to get to bedroom level Home Environment Tub/Shower Home Equipment Four Wheel Walker,Straight Cane,Shower Seat without Backrest Additional Social History Comment pt's [id number] will assist pt M2 OT-IP Current Condition Start: 07/18/21 11:19 Freq: Status: Active Protocol: Document 07/19/21 10:21 [facility] (Rec: 07/19/21 11:50 [facility] [id number]) Occupational Therapy Current Condition Current Condition Evaluation Date 07/19/21 Treatment Diagnosis S/p L2-3, L3-4 TLIF Diagnosis Onset Date 07/19/21 Post Operative Precautions Abdominal Surgery Precautions Log Roll,Lifting Restrictions, Gait Belt above Incisional Area M3 OT- IP Subjective and Pain Start: 07/18/21 11:19 Freq: Status: Active Protocol: Document 07/19/21 10:21 [facility] (Rec: 07/19/21 11:50 [facility] [id number]) OT- Subjective Occupational Therapy Visit Type Type Initial Evaluation Visit Start Time 10: Visit Stop Time 11:00 Total Visit Minutes 39 Occupational Therapy Visit Comments Patient Comments Pt wanting to get up and do the steps and take a shower. Pt's daughter in law present for caregiver training OT Pain Assessment Pain When Pain Assessed At Rest Pain Present Pain Present Pain Reported Location lower back Intensity 7 Scale Used Numeric (0 - 10) M4 OT- IP ADL's Start: 07/18/21 11:19 Freq: Status: Active Protocol: Document 07/19/21 10:21 [facility] (Rec: 07/19/21 11:50 [facility] [id number]) OT [id number] Comments OT Self-Feeding Comments NOt at meal time. OT ADL-Grooming Comments OT Grooming Comments Pt's daughter in law has been assisting her. OT ADL-Dressing General Eval Lower Body Dressing Ability Maximum Assistance Comments OT Dressing Comments Pt's daughter in law states will be assisting pt for all ADL needs. OT ADL-Toileting Comments OT Toileting Comments Pt not having to go at this time. OT ADL-Bathing Comments OT Bathing Comments Sponge bath more appropriate due to low BP and also symptomatic. M5 OT- IP IADL's Start: 07/18/21 11:19 Freq: Status: Active Protocol: Document 07/19/21 10:21 [facility] (Rec: 07/19/21 11:50 [facility] [id number]) OT-Instrumental Activities of Daily Living Home Safety Awareness Home Safety Comments Pt's family to be assist her for all her needs. M6 OT- IP Functional Cognition Start: 07/18/21 11:19 Freq: Status: Active Protocol: Document 07/19/21 10:21 [facility] (Rec: 07/19/21 11:50 [facility] [id number]) Cognitive Factors Limiting Selfcare Function Cognitive Ability Level of Alertness Alert Patient Orientation Name,Place,Situation Attention Span Ability Capable of Focused Attention, Capable of Sustained Attention Ability to Follow Commands Able to Follow One Step Commands Cognitive Comments Cognitive Assessment Comments Pt able to follow commands appropriately. OT- Vision and Hearing OT- Hearing Assessment OT- Hearing Assessment WFL M7 OT- IP Mobility and Balance Start: 07/18/21 11:19 Freq: Status: Active Protocol: Document 07/19/21 10:21 [facility] (Rec: 07/19/21 11:50 [facility] [id number]) OT- Bed Mobility Assessment Rolling Type of Rolling Roll to Left Level of Assistance Moderate Assistance Supine to Sit Supine to Sit Assist Moderate Assistance Sit to Supine Sit to Supine Assist Moderate Assistance OT-Transfer Assessment Sit to and From Stand Sit to and from Stand Minimal Assistance Transfers Transfer Ability Minimal Assistance Technique Transfer Destination Bed,Wheelchair Transfer Technique Stand Step Pivot Devices Transfer Assistive Devices Gait Belt,Front Wheeled Walker Comments Mobility Comments Pt's daughter in law able to safely assist pt for all mobility and transfer needs. Pt BP supine 126/73, sitting, 119/65 and standing 80/46 and 89/56 and 82/46. Nursing and PA notified. OT- Balance Assessment Sitting Balance and Reactions Static Sitting Balance Ability Good Dynamic Sitting Balance Ability Fair Standing Balance and Reactions Static Standing Balance Ability Fair M9 OT- IP Assessment and Plan Start: 07/18/21 11:19 Freq: Status: Active Protocol: Document 07/19/21 10:21 [facility] (Rec: 07/19/21 11:50 [facility] [id number]) OT Summary Assessment and Plan Potential Rehabilitation Potential Good Analytic Complexity at Evaluation Moderate Summary OT Impairments Pain,Functional Mobility, Dressing,Toileting,Bathing, Toilet Transfers,Shower Transfers Progress Towards Goals Slow Progress due to Pain,Slow Progress due to Medical Issues Assessment Summary Pt MOD complexity and main barriers are low BP and now needing assist for all ADL and mobility needs. Pt's daughter in law has been participating in caregiver training and able to safely assist pt for ADl and mobility needs. They have also picked up BSC, tub bench, and RTS to use at home. Pt hopefully to go home with 24/7 assist when medically stable. Goals Grooming Goal Standby Assistance Dressing Goal Moderate Assistance Bathing Goal Moderate Assistance Toilet Transfer Goal Minimal Assistance Shower Transfer Goal Minimal Assistance Patient/Caregiver Education Goal Demonstrate Post-Op Precautions,Caregiver Independent Assisting Patient Days to Meet Goals 5 Frequency of Treatment Frequency Of Treatment Once a Day Treatment Plan OT Treatment Plan ADL Training,Functional Cognition Training,Functional Mobility,Patient/Family Education,Discharge Planning Discharge Recommendations OT Discharge Recommendations Home with 24/7 Assist Available Home Equipment Needs wc Transportation Needs at Discharge Private Vehicle
[2021-07-19] MEDS: SODIUM CHLORIDE 0.9% 500 ML 1000 ML IV (11:30)
[2021-07-19] MEDS: TRAMADOL 50 MG TABLET PO ×2 (13:01→20:42)
--- NOTE | 2021-07-19 13:46 | PT.IPTN ---
Current Diagnoses Other secondary scoliosis, lumbar region (07/16/21) Spinal stenosis, lumbar region without neurogenic claudication (07/16/21) Frequency of micturition (07/16/21) Surgery Performed Operation Date: 07/16/21 12:15 Actual Procedures p L2-3, L3-4 TLIF with posterior instrumentation. - Robot - Reggie Sifuentes MD Physical Therapy Treatment Note M2 PT-IP Current Condition Start: 07/17/21 12:26 Freq: NEEDED Status: Active Protocol: Document 07/17/21 10:25 AB (Rec: 07/17/21 12:48 AB [id number]) Physical Therapy Current Condition Current Condition Evaluation Date 07/17/21 Treatment Diagnosis s/p L2-3, L3-4 TLIF; difficulty in walking Onset Date 07/16/21 M3 PT-IP Subjective Start: 07/17/21 12:26 Freq: NEEDED Status: Active Protocol: Document 07/19/21 13:23 [place] (Rec: 07/19/21 14:29 [place] [id number]) Subjective Physical Therapy Visit Type Type Treatment Note Visit Start Time 13:23 Visit Stop Time 13:46 Total Visit Minutes 23 Notes pts DIL present Number of HAUL CANE BRAKEMAN Visits 4 Physical Therapy Visit Comments Patient Comments pt agreed to do PT; DIL in room for caregiver training M4 PT-IP Mobility and Gait Start: 07/17/21 12:26 Freq: NEEDED Status: Active Protocol: Document 07/19/21 13:23 [place] (Rec: 07/19/21 14:29 [place] [id number]) PT-Bed Mobility Assessment Rolling Type of Rolling Log Rolling Level of Assist Moderate Assistance,1 Person Assistance Supine to Sit Supine to Sit Moderate Assistance,1 Person Assistance Sit to Supine Sit to Supine Maximum Assistance,1 Person Assistance Scooting Scooting to Edge of Bed Contact Guard Assistance PT-Transfer Assessment Sit to and From Stand Sit to and from Stand Minimal Assistance,1 Person Assistance,Use of Upper Extremities Equipment Transfer Assistive Device Gait Belt,Front Wheeled Walker Orthotic/Prosthetic Devices or Brace: No Transfers Transfer Destination Bed Transfer Ability Level of Assist Minimal Assistance,Moderate Assistance,1 Person Assistance ,Use of Upper Extremities Comments Mobility Comments Pt in bed upon arrival from therapy, BP: 101/61. Pt Mod A provided by DIL for sup<>sit, cues required to perform logroll. Sitting EOB BP: 105/ 57. Pt Min A for sit<>stand w/ FWW and able to take 4 steps laterally towards HOB, standing BP: 83/44. Pt requested to ambulate, but due to low BP pt performed [address], BP: 74/45 and pt reporting dizziness. Pt Max A for sit<> sup and repositioning in bed, supine BP: 116/56. Pt left in bed w/ DIL in room and all needs in reach. RN notified of BP. Gait Assessment Comments Gait Comments [address] due to low BP. Stair Climbing Assessment Comments Stair Climbing Comments Unable to assess due to low BP . PT-Balance Assessment Sitting Balance and Reactions Static Sitting Balance Ability Good Dynamic Sitting Balance Ability Fair Standing Balance and Reactions Static Standing Balance Ability Fair Dynamic Standing Balance Ability Fair Device Used FWW M5 PT-IP Objective Assessments Start: 07/17/21 12:26 Freq: NEEDED Status: Active Protocol: Document 07/17/21 10:25 AB (Rec: 07/17/21 12:48 AB [id number]) Orientation Orientation/Cognition Level of Alertness Alert Language Function Ability No Deficits Noted Safety Awareness Decreased Safety Awareness Memory Description Short Term Impaired Comments with slight confusion Gross Range of Motion Lower Extremity ROM Assessment Within Functional Limits Strength Lower Extremity Strength Assessment Bilaterally Impaired Hip 3+/5 Knee 4-/5 Coordination Assessment Gross Coordination Gross Coordination WNL Sensation Assessment Sensation Gross Sensation WNL Muscle Tone Muscle Tone WNL Yes M6 PT-IP Treatment Start: 07/17/21 12:26 Freq: NEEDED Status: Active Protocol: Document 07/19/21 13:23 [place] (Rec: 07/19/21 14:29 [place] [id number]) Physical Therapy Treatment Exercises Exercises Ankle Pumps Education Education Provided Precautions,Safety Other Treatments Other Treatment Performed Assessed caregivers recall of training w/ bed mobility. M7 PT-IP Assessment and Plan Start: 07/17/21 12:26 Freq: NEEDED Status: Active Protocol: Document 07/19/21 13:23 [place] (Rec: 07/19/21 14:29 KS [id number]) PT Summary Assessment and Plan Potential Rehabilitation Potential Good Summary Impairments Pain,ROM,Strength,Balance, Coordination,Sensation,Tone, Cognition,Bed Mobility, Transfers,Gait,Activity Tolerance Progress Towards Goals Slow Progress due to Medical Issues,Slow Progress due to Activity Tolerance Assessment Summary Pt remains limited by symptomatic orthostatic hypotension. Pts DIL able to provide assist and cues for bed mobility, however pt still requiring Max A and cues. Pt will need to ambulate further and complete caregiver and stair training prior to d/c. Goals Bed Mobility Goal Standby Assistance Transfer Goal Standby Assistance,Front Wheeled Walker Gait Goal Standby Assistance,Front Wheel Walker Gait Distance 150 Other Goals up/down 2 steps without rails: SPC/TACTICAL AIR CONTROL PARTY MANAGER CGA up/down 13 steps B rails SBA Days to Meet Goals 10 Frequency of Treatment Frequency Of Treatment Twice a Day Treatment Plan Physical Therapy Treatment Plan Bed Mobility Training,Transfer Training,Gait Training, Therapeutic Exercise,Balance Retraining,Post Op Education, Discharge Planning,Hot or Cold Pack,Neuromuscular Re-ed, Coordination Retraining,Manual Therapy Precautions Lumbar Precautions Log Roll,No Twisting,Limit Bending,Lifting Restriction of 10 lbs,Gait Belt above Incisional Area Recommendations To Nursing Amount of Assist Needed 1 Person Assist Discharge Recommendations PT Discharge Recommendations Home with 24/ Assist Available,Home Health Equipment Needed for Home Before FWW Discharge Transportation Needs at Discharge Private Vehicle
[2021-07-19] MEDS: LACTATED RINGERS 1,000 ML 100 ML IV (17:21)
[2021-07-19] MEDS: SENNOSIDES 8.6 MG TABLET 17.2 MG PO (20:00)
[2021-07-20] MEDS: LEVOTHYROXINE 112 MCG TABLET PO (05:25)
[2021-07-20] MEDS: BISACODYL 10 MG SUPP PR (05:28)
[2021-07-20] MEDS: GABAPENTIN 600 MG TABLET PO ×2 (08:26→15:39)
[2021-07-20] MEDS: DOCUSATE 100 MG CAPSULE PO (08:26)
[2021-07-20] MEDS: MONTELUKAST 10 MG TABLET PO (08:26)
[2021-07-20] MEDS: CYANOCOBALAMIN (VITAMIN B-12) 500 MCG TABLET 1000 MCG PO (08:26)
[2021-07-20] MEDS: TRAMADOL 50 MG TABLET PO (08:26)
[2021-07-20] MEDS: VIT C/E/ZN/COPPR/LUTEIN/ZEAXAN CAPSULE 1 CAP PO (08:27)
[2021-07-20] MEDS: FLUoxetine 20 MG CAPSULE PO (08:27)
[2021-07-20] MEDS: DICYCLOMINE 10 MG CAPSULE PO (08:27)
[2021-07-20] MEDS: BUDESONIDE 0.5 MG/2 ML NEB INH (08:31)
[2021-07-20 08:32] VITALS: PULSE 65; RESP 14; O2SAT 97
[2021-07-20] MEDS: ALBUTEROL 2.5 MG/3 ML NEB (ADULT) INH (08:32)
[2021-07-20] MEDS: SODIUM CHLORIDE 0.9% FLUSH 10 ML IV (09:57)
[2021-07-20 11:15] VITALS: BP 120/74; PULSE 86; RESP 18; TEMP 37.4; O2SAT 100
--- NOTE | 2021-07-20 12:09 | PT.IPTN ---
Addendum entered and electronically signed by Taylor Graham PT 07/20/21 12:49: Treatment was provided by SEMAJ García and supervised by Taylor Graham PT. I personally reviewed this note and agree with its contents. Original Note: Current Diagnoses Other secondary scoliosis, lumbar region (07/16/21) Spinal stenosis, lumbar region without neurogenic claudication (07/16/21) Frequency of micturition (07/16/21) Surgery Performed Operation Date: 07/16/21 12:15 Actual Procedures p L2-3, L3-4 TLIF with posterior instrumentation. - Robot - Reggie Sifuentes MD Physical Therapy Treatment Note M2 PT-IP Current Condition Start: 07/17/21 12:26 Freq: NEEDED Status: Active Protocol: Document 07/17/21 10:25 AB (Rec: 07/17/21 12:48 AB [id number]) Physical Therapy Current Condition Current Condition Evaluation Date 07/17/21 Treatment Diagnosis s/p L2-3, L3-4 TLIF; difficulty in walking Onset Date 07/16/21 M3 PT-IP Subjective Start: 07/17/21 12:26 Freq: NEEDED Status: Active Protocol: Document 07/20/21 12:09 JG (Rec: 07/20/21 12:36 JG [id number]) Subjective Physical Therapy Visit Type Type Treatment Note Visit Start Time 11:40 Visit Stop Time 12:09 Total Visit Minutes 29 Notes Pt shared how to pronounce name: Levy Mason was directly supervised by ROLY Vazquez Number of TRENCH PIPE LAYER HELPER Visits 0 Physical Therapy Visit Comments Patient Comments pt agreed to do PT; DIL in room for caregiver training; pt asked to do stairs M4 PT-IP Mobility and Gait Start: 07/17/21 12:26 Freq: NEEDED Status: Active Protocol: Document 07/20/21 12:09 JG (Rec: 07/20/21 12:36 JG [id number]) PT-Bed Mobility Assessment Rolling Type of Rolling Log Rolling Level of Assist Minimal Assistance,1 Person Assistance Supine to Sit Supine to Sit Moderate Assistance,1 Person Assistance Sit to Supine Sit to Supine Moderate Assistance,2 Person Assistance Scooting Scooting to Edge of Bed Contact Guard Assistance PT-Transfer Assessment Sit to and From Stand Sit to and from Stand Minimal Assistance,1 Person Assistance,Use of Upper Extremities Equipment Transfer Assistive Device Gait Belt,Front Wheeled Walker Orthotic/Prosthetic Devices or Brace: No Transfers Transfer Destination Bed,Toilet Transfer Technique ambulated using FWW Transfer Ability Level of Assist Minimal Assistance,Moderate Assistance,1 Person Assistance ,Use of Upper Extremities Comments Mobility Comments Pt in bed upon arrival and vitals were 139/76, 92 bpm. After amb to bathroom and pt voided in toilet, vitals were 123/68, 92 bpm. After amb from room to stairs, vitals were 127/68, 103 bpm. In bed at end of session, vitals were 120/ 58, 97 bpm. Pt was eager to attempt stairs today and during all mobility and amb, pt did not become dizzy or overly fatigued. Pt req mod cueing and assist for bed mob yumiko avoiding twisting and log rolling. Pt improved sit-to- stand form after min cueing about hip hinge. Gait Assessment Gait Gait Assistance Required: Minimum Assistance,1 Person Assist,2 Person Assist Distance (Feet) 134 Able to Maintain Weight Bearing Status Yes During Gait Assistive Devices Assistive Device Gait Belt,Front Wheeled Walker Orthotic/Prosthetic Devices or Brace: No Gait Deviations General Gait Pattern Antalgic,Ataxic,Decreased Feet Clearance Factors Limiting Gait Function Factors Limiting Gait Function Decreased Activity Tolerance, Decreased Strength,Difficulty Following Directions,Limited Range of Motion,Pain,Poor Balance,Poor Safety Awareness Comments Gait Comments Pt amb min A w/FWW and wc follow. Pt walks with L foot ER which pt reports is baseline and from knee surgery 10 years ago. Stair Climbing Assessment Evaluation Level of Assist On Stairs Moderate Assistance,1 Person Assistance Devices Stair Climbing Assistive Devices Straight Cane,Left Railing, Right Railing Technique/Endurance Stair Climbing Direction Ascend and Descend Stair Climbing Technique Step to Step Number of Steps Climbed 3 Stair Climbing Set # Repetitions (reps) 1 Comments Stair Climbing Comments Pt req mod cueing for gait pattern and SPC management. Pt ascended leading w/R leg and descended leading w/L leg. Pt was fatigued after 1 set and, when offered, opted to take wc back to room. M5 PT-IP Objective Assessments Start: 07/17/21 12:26 Freq: NEEDED Status: Active Protocol: Document 07/17/21 10:25 AB (Rec: 07/17/21 12:48 AB [id number]) Orientation Orientation/Cognition Level of Alertness Alert Language Function Ability No Deficits Noted Safety Awareness Decreased Safety Awareness Memory Description Short Term Impaired Comments with slight confusion Gross Range of Motion Lower Extremity ROM Assessment Within Functional Limits Strength Lower Extremity Strength Assessment Bilaterally Impaired Hip 3+/5 Knee 4-/5 Coordination Assessment Gross Coordination Gross Coordination WNL Sensation Assessment Sensation Gross Sensation WNL Muscle Tone Muscle Tone WNL Yes M6 PT-IP Treatment Start: 07/17/21 12:26 Freq: NEEDED Status: Active Protocol: Document 07/20/21 12:09 J (Rec: 07/20/21 12:36 J [id number]) Physical Therapy Treatment Education Education Provided Precautions,Safety Other Treatments Other Treatment Performed 1. Spinal precautions 2. caregiver education regarding chair placement around home for rest break options and stair training 3. bridging in supine M7 PT-IP Assessment and Plan Start: 07/17/21 12:26 Freq: NEEDED Status: Active Protocol: Document 07/20/21 12:09 JG (Rec: 07/20/21 12:36 [id number]) PT Summary Assessment and Plan Potential Rehabilitation Potential Good Summary Impairments Pain,ROM,Strength,Balance, Coordination,Sensation,Tone, Cognition,Bed Mobility, Transfers,Gait,Activity Tolerance Progress Towards Goals Slow Progress due to Medical Issues,Slow Progress due to Activity Tolerance Assessment Summary Pt showed marked improvement today with activity tolerance. Pt's DIL was highly engaged w /caregiver training. Pt was able to amb to the stairs w/ min A and complete 1 set of stairs w/mod A. However, pt did require a couple rest breaks. Pt's BP was stable throughout the treatment session. Pt also continues req cueing and assist for bed mob . Goals Bed Mobility Goal Standby Assistance Transfer Goal Standby Assistance,Front Wheeled Walker Gait Goal Standby Assistance,Front Wheel Walker Gait Distance 150 Other Goals up/down 2 steps without rails: SPC/DUPLICATING MACHINE OPERATOR CGA up/down 13 steps B rails SBA Days to Meet Goals 10 Frequency of Treatment Frequency Of Treatment Twice a Day Treatment Plan Physical Therapy Treatment Plan Bed Mobility Training,Transfer Training,Gait Training, Therapeutic Exercise,Balance Retraining,Post Op Education, Discharge Planning,Hot or Cold Pack,Neuromuscular Re-ed, Coordination Retraining,Manual Therapy Other Recommendations and Next Treatment Bed mobility Focus Bridging Stairs Precautions Lumbar Precautions Log Roll,No Twisting,Limit Bending,Lifting Restriction of 10 lbs,Gait Belt above Incisional Area Recommendations To Nursing Amount of Assist Needed Standby Assistance Discharge Recommendations PT Discharge Recommendations Home with 01/03 Assist Available,Home Health Equipment Needed for Home Before FWW Discharge Transportation Needs at Discharge Private Vehicle
[2021-07-20] MEDS: LACTATED RINGERS 1,000 ML 100 ML IV (13:54)
--- NOTE | 2021-07-20 15:18 | PT.IPTN ---
Current Diagnoses Other secondary scoliosis, lumbar region (07/16/21) Spinal stenosis, lumbar region without neurogenic claudication (07/16/21) Frequency of micturition (07/16/21) Surgery Performed Operation Date: 07/16/21 12:15 Actual Procedures p L2-3, L3-4 TLIF with posterior instrumentation. - Robot - Reggie Sifuentes MD Physical Therapy Treatment Note M2 PT-IP Current Condition Start: 07/17/21 12:26 Freq: NEEDED Status: Active Protocol: Document 07/17/21 10:25 AB (Rec: 07/17/21 12:48 AB [id number]) Physical Therapy Current Condition Current Condition Evaluation Date 07/17/21 Treatment Diagnosis s/p L2-3, L3-4 TLIF; difficulty in walking Onset Date 07/16/21 M3 PT-IP Subjective Start: 07/17/21 12:26 Freq: NEEDED Status: Active Protocol: Document 07/20/21 15:18 AW (Rec: 07/20/21 15:31 AW [id number]) Subjective Physical Therapy Visit Type Type Treatment Note Visit Start Time 14:54 Visit Stop Time 15:18 Total Visit Minutes 24 Notes Pt's daughter was present and participated with caregiver training Physical Therapy Visit Comments Patient Comments pt agreed to do PT; DIL in room for caregiver training; pt asked to do stairs M4 PT-IP Mobility and Gait Start: 07/17/21 12:26 Freq: NEEDED Status: Active Protocol: Document 07/20/21 15:18 AW (Rec: 07/20/21 15:31 AW [id number]) PT-Bed Mobility Assessment Rolling Type of Rolling Log Rolling Level of Assist Moderate Assistance,1 Person Assistance Supine to Sit Supine to Sit Minimal Assistance,1 Person Assistance Sit to Supine Sit to Supine Moderate Assistance,1 Person Assistance Scooting Scooting to Edge of Bed Contact Guard Assistance PT-Transfer Assessment Sit to and From Stand Sit to and from Stand Minimal Assistance,1 Person Assistance,Use of Upper Extremities Equipment Transfer Assistive Device Gait Belt,Front Wheeled Walker Orthotic/Prosthetic Devices or Brace: No Transfers Transfer Destination Bed,Wheelchair Transfer Ability Level of Assist Minimal Assistance,1 Person Assistance,Use of Upper Extremities Comments Mobility Comments Pt in bed as PT arrived. BP 126/71 HR 87. Pt's daughter provided assist for pt to roll to right side and complete SL to sit min/mod A x 1. Daughter donned gait belt and assisted pt to stand. Pt used FWW to ambulate to stairs. Seated break in w/c with BP 142/73 HR 94. Pt stood again and daughter provided all assist to go up/down three stairs x 1 with SPC held in right hand. Pt then agreed to ambulate back to her room. Daughter assisted pt back to bed with good cues for reverse log roll. Supine BP was 148/ 72 HR 93. Gait Assessment Gait Gait Assistance Required: Minimum Assistance,1 Person Assist Distance (Feet) 135 Able to Maintain Weight Bearing Status Yes During Gait Assistive Devices Assistive Device Gait Belt,Front Wheeled Walker Orthotic/Prosthetic Devices or Brace: No Gait Deviations General Gait Pattern Antalgic,Decreased Stride Length,Decreased Feet Clearance,Lateral Trunk Lean, Step-to Gait Factors Limiting Gait Function Factors Limiting Gait Function Decreased Activity Tolerance, Decreased Strength,Difficulty Following Directions,Limited Range of Motion,Pain,Poor Balance,Poor Safety Awareness Comments Gait Comments Pt amb min A x 1 with FWW and w/c follow but w/c not needed until pt completed 135 feet. Pt states she only needs to walk 40 feet from car to steps at home. Stair Climbing Assessment Evaluation Level of Assist On Stairs Minimal Assistance,Moderate Assistance,1 Person Assistance Devices Stair Climbing Assistive Devices Straight Cane Technique/Endurance Stair Climbing Direction Ascend and Descend Stair Climbing Technique Step to Step Number of Steps Climbed 3 Stair Climbing Set # Repetitions (reps) 1 Comments Stair Climbing Comments Pt's daughter provided all appropriate cues for sequencing and provided all assist safely. M5 PT-IP Objective Assessments Start: 07/17/21 12:26 Freq: NEEDED Status: Active Protocol: Document 07/17/21 10:25 AB (Rec: 07/17/21 12:48 AB [id number]) Orientation Orientation/Cognition Level of Alertness Alert Language Function Ability No Deficits Noted Safety Awareness Decreased Safety Awareness Memory Description Short Term Impaired Comments with slight confusion Gross Range of Motion Lower Extremity ROM Assessment Within Functional Limits Strength Lower Extremity Strength Assessment Bilaterally Impaired Hip 3+/5 Knee 4-/5 Coordination Assessment Gross Coordination Gross Coordination WNL Sensation Assessment Sensation Gross Sensation WNL Muscle Tone Muscle Tone WNL Yes M6 PT-IP Treatment Start: 07/17/21 12:26 Freq: NEEDED Status: Active Protocol: Document 07/20/21 15:18 AW (Rec: 07/20/21 15:31 AW [id number]) Physical Therapy Treatment Exercises Exercises Ankle Pumps,Quad Sets Education Education Provided Precautions,Safety Other Treatments Other Treatment Performed Continued education on post op precautions which pt's daughter is well able to articulate and reenforce functionally. M7 PT-IP Assessment and Plan Start: 07/17/21 12:26 Freq: NEEDED Status: Active Protocol: Document 07/20/21 15:18 AW (Rec: 07/20/21 15:31 AW [id number]) PT Summary Assessment and Plan Potential Rehabilitation Potential Good Summary Impairments Pain,ROM,Strength,Balance, Coordination,Sensation,Tone, Cognition,Bed Mobility, Transfers,Gait,Activity Tolerance Progress Towards Goals Progressing Toward Goals Assessment Summary Pt continues to progress her mobility and her daughter is able to provide all necessary assist and cues. BP was stable throughout treatment today. Advised RN of pt's mobility. Pt will be safe to discharge home with 24/7 assist available and home health therapy to progress her mobility and self-care. 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 up/down 13 steps B rails SBA Days to Meet Goals 10 Frequency of Treatment Frequency Of Treatment Twice a Day Treatment Plan Physical Therapy Treatment Plan Bed Mobility Training,Transfer Training,Gait Training, Therapeutic Exercise,Balance Retraining,Post Op Education, Discharge Planning,Hot or Cold Pack,Neuromuscular Re-ed, Coordination Retraining,Manual Therapy Precautions Lumbar Precautions Log Roll,No Twisting,Limit Bending,Lifting Restriction of 10 lbs,Gait Belt above Incisional Area Recommendations To Nursing Amount of Assist Needed Standby Assistance Discharge Recommendations PT Discharge Recommendations Home with 24/7 Assist Available,Home Health Equipment Needed for Home Before daughter has acquired FWW Discharge Transportation Needs at Discharge Private Vehicle
--- NOTE | 2021-07-20 19:28 | PC.NURSE ---
report from day shift nurse, plan is for patient to d/c home this evening. daughter is here to review medications and d/c paperwork. requested tramadol be added to her meds - call to dr azevedo to inquire of this. Dr azevedo will call the Tramadol into [facility] in [place]. this above info relayed to patient and daughter. d/c instructions reviewed, instructions to check VS this week, yumiko b/p and pulse, and to f/u w/ PCP as directed. patient has a f/u appt 07/29/21. VS obtained prior to leaving the floor, left in w/c, assisted by DEISI Dupont. left at approx 1945. copy of d/c signature page given to daughter.
[2021-07-20 19:44] VITALS: BP 132/76; PULSE 87; RESP 16; TEMP 36.2; O2SAT 98
== END 2021-07-20 19:45 | disposition home or self-care (01) ==
LOC: AC 10:52
PROVIDERS: Physician Assistant; Admitting Provider Orthopaedic Surgery Orthopaedic Surgery of the Spine; PCP Family Medicine; Referring Provider Orthopaedic Surgery Orthopaedic Surgery of the Spine; Visit Provider Orthopaedic Surgery Orthopaedic Surgery of the Spine
PROC: (CPT 22633; principal; 2021-07-16 12:15)
DX: M48.061 Spinal stenosis, lumbar region without neurogenic claudication (principal); M41.56 Other secondary scoliosis, lumbar region; F41.9 Anxiety disorder, unspecified; F32.9 Major depressive disorder, single episode, unspecified; J45.909 Unspecified asthma, uncomplicated; K21.9 Gastro-esophageal reflux disease without esophagitis; I10 Essential (primary) hypertension; N39.41 Urge incontinence; Z20.822 Contact with and (suspected) exposure to COVID-19
CPT/HCPCS: 22633; 22634; 22842; 22853 ×2; 63047; 63048; 20939; 36415; 72100; 76000; 81001; 85014; 85018; 87635; 93970; 94640; 97116; 97162; 97166; 97530; 97535; C1776; C9803; G0378; C9290; J0171; J0330; J0690; J1100; J1170; J2250; J2405; J2704; J3010; J3410; J7613

== ENCOUNTER → 2021-10-03 12:34 | Outpatient (CLI) | payer MEDICARE, MEDICAID, SELFPAY ==
[2021-07-16 18:54] VITALS: BMI 37.0
--- NOTE | 2021-10-03 12:37 | DI.MRI.S_ITS ---
PROCEDURE: MR CERVICAL SPINE WO CON INDICATIONS: Radiculopathy, cervical region TECHNIQUE: Noncontrast sagittal T1 spin echo and T2 fast spin echo, sagittal STIR, foraminal oblique sagittal T2 fast spin echo, and axial gradient echo or T2 fast spin echo through the cervical spine. COMPARISON: [facility], MR, MR CERVICAL SPINE WO CON, 04/04/2020, 16:28. FINDINGS: Image quality: Excellent. Alignment and Curvature: There is loss of normal cervical lordosis. There is mild grade 1 retrolisthesis of C3 on C4, C4 on C5, and C5 on C6. Mild grade 1 anterolisthesis of C6 on C7 and C7 on T1. Bone Marrow: Marrow demonstrates normal overall signal. There is mild reactive signal throughout the endplates of the cervical and upper thoracic spine. Spinal Cord: Visualized spinal cord has normal size and signal. No cerebellar tonsillar herniation. Paraspinous Soft Tissues: No paravertebral masses. Prevertebral soft tissues are normal in thickness. C2-C3: Moderate disc desiccation. Small central protrusion. Mild facet and uncovertebral hypertrophy bilaterally. Mild canal stenosis. Mild left foraminal stenosis. No right foraminal stenosis. No significant change. C3-C4: Moderate disc height loss and desiccation. Mild diffuse disc bulge with superimposed left paracentral protrusion. Mild facet and uncovertebral hypertrophy bilaterally. Congenital canal stenosis. Moderate to severe canal stenosis. Minimal cord flattening. Severe left and moderate right foraminal stenosis. Left C4 nerve root compression. No significant change. C4-C5: Moderate disc height loss and desiccation. Mild diffuse disc bulge with superimposed broad-based right posterolateral protrusion/osteophyte. Congenital canal stenosis. Moderate facet and uncovertebral hypertrophy bilaterally. Moderate to severe canal stenosis. Minimal cord flattening. Severe right and moderate left foraminal stenosis. Right C5 nerve root compression. No significant change. C5-C6: Congenital canal stenosis. Moderate disc height loss and desiccation. Mild diffuse disc bulge with superimposed small central protrusion. Moderate facet and uncovertebral hypertrophy bilaterally, right greater than left. Moderate canal stenosis. Severe right and moderate left foraminal stenosis. Right C6 nerve root compression. No significant change. C6-C7: Congenital canal stenosis. Moderate disc height loss and desiccation. Mild diffuse disc bulge. Mild facet and uncovertebral hypertrophy bilaterally. Moderate canal stenosis. Moderate right and mild left foraminal stenosis. No significant change. C7-T1: Mild disc height loss. Moderate disc desiccation. No significant canal, or foraminal stenosis. No significant change. IMPRESSION: 1. Diffuse congenital canal stenosis with superimposed disc and facet disease, as well as uncovertebral hypertrophy. 2. Multilevel canal stenoses, worst at C3-C4 and C4-C5, where there is minimal cord flattening. 3. Multilevel foraminal stenoses, worst at C3-C4, C4-C5, and C5-C6, where there is associated intraforaminal nerve root compression. Recommend correlation with clinical symptoms to ascertain relevance of these findings. Dictated by: Salima Cristina M.D. on 10/03/2021 at 14:19 Approved by: Salima Cristina M.D. on 10/03/2021 at 16:58
== END ==
PROVIDERS: PCP Family Medicine; Referring Provider Physical Medicine & Rehabilitation; Visit Provider Physical Medicine & Rehabilitation
DX: M50.11 Cervical disc disorder with radiculopathy, high cervical region (principal); M48.02 Spinal stenosis, cervical region
CPT/HCPCS: 72141

== ENCOUNTER → 2022-01-14 11:25 | Outpatient (CLI) | payer MEDICARE, MEDICAID, SELFPAY ==
[2021-07-16 18:54] VITALS: BMI 37.0
[2022-01-14 12:12] LABS: BUN Creatinine Ratio 13.3 (6-22); Blood Urea Nitrogen 14 mg/dL (7-17); Calcium 8.6 mg/dL (8.4-10.2); Carbon Dioxide 25 mmol/L (22-32); Chloride 109 mmol/L (98-107); Estimated Glomerular Filt Rate 55 mL/min (>60); Glucose 100 mg/dL (80-110); HEMOLYSIS < 15 (0-50); Potassium 4.9 mmol/L (3.4-5.1); Sodium 137 mmol/L (137-145)
== END ==
PROVIDERS: PCP Family Medicine; Referring Provider Family Medicine; Visit Provider Family Medicine
DX: N18.30 Chronic kidney disease, stage 3 unspecified (principal)
CPT/HCPCS: 36415; 80048

== ENCOUNTER 2022-02-22 12:12 | Emergency (ER) | payer MEDICARE, MEDICAID, SELFPAY ==
[2021-07-16 18:54] VITALS: BMI 37.0
[2022-02-22 12:44] VITALS: BP 135/78; PULSE 65; RESP 14; TEMP 36.6; O2SAT 99; BMI 36.2
--- NOTE | 2022-02-22 13:01 | DI.RAD.S_ITS ---
PROCEDURE: XR KNEE LT 3V INDICATIONS: fall, unable to bear weight TECHNIQUE: 3 views of the knee were acquired. COMPARISON: None. FINDINGS: Bones: Generalized decrease in osseous mineralization noted. Total knee arthroplasty in good position. Soft tissues: Small joint effusion. No suspicious soft tissue calcifications. IMPRESSION: Total knee arthroplasty in good position without fracture hardware failure. Small joint effusion noted. Approved by: Sohail Abbott M.D. on 02/22/2022 at 13:54
--- NOTE | 2022-02-22 13:01 | DI.RAD.S_ITS ---
PROCEDURE: XR FOOT LT MIN 3V INDICATIONS: fall, unable to bear weight TECHNIQUE: 3 views of the foot were acquired. COMPARISON: None. FINDINGS: Bones: No fractures or dislocations. No suspicious bony lesions. Tarsometatarsal joint space narrowing and marginal osteophyte present plantar calcaneal spur. Generalized osseous demineralization present as well. Soft tissues: No tibiotalar joint effusion. Achilles tendon appears normal. IMPRESSION: No fracture or foreign body. Degenerative arthritic changes mild Approved by: Sohail Abbott M.D. on 02/22/2022 at 13:56
--- NOTE | 2022-02-22 13:01 | DI.RAD.S_ITS ---
PROCEDURE: XR ANKLE LT MIN 3V INDICATIONS: fall, unable to bear weight TECHNIQUE: 3 views of the ankle were acquired. COMPARISON: None. FINDINGS: Bones: No fractures or dislocations. Ankle mortise is normally aligned. No suspicious bony lesions. Calcaneal spur noted. Degenerative changes noted in the midfoot. Soft tissues: No tibiotalar joint effusion. Achilles tendon appears normal. IMPRESSION: Degenerative changes without fracture or foreign body Dictated by: Sohail Abbott M.D. on 02/22/2022 at 13:46 Approved by: Sohail Abbott M.D. on 02/22/2022 at 13:50
--- NOTE | 2022-02-22 13:29 | ED.FALL ---
HPI - Fall <Efraín PageLIZETTE - Last Filed: 02/22/22 15:30> General Chief Complaint: Fall Stated Complaint: left foot injury/back pain x3 days Time Seen by Provider: 02/22/22 13:11 Source: patient Mode of arrival: Wheelchair History of Present Illness HPI Narrative: 76-year-old female, nonsmoker, presents to the emergency department with left foot, ankle, knee and lower back pain x3 days. Patient states that she has not been able to bear weight due to the pain of her left foot. Patient states that she slipped on a piece of paper causing her left foot slipped out from underneath her, hyperextending her knee, landing on her buttocks, lower back and head. Patient denies any loss of consciousness or unusual neck. Patient has a history of neck pain, lumbar surgery and left total knee replacement. Patient states that she took a extra-strength Tylenol only for the 8/10 foot pain and is here with her daughter. Related Data Home Medications Medication Instructions Recorded Confirmed vitamins A,C,Q-vwwh-vdxwva 14,320 1 sgl PO BID ##0 06/23/16 07/16/21 unit-226 mg-200 unit capsule (PreserVision AREDS) mecobalamin (vitamin B12) 1,000 1,000 mcg sublingual DAILY 02/02/18 07/16/21 mcg disintegrating tablet,sublingual Disabled Parking Permit 1 dev miscellaneous DIRECTED 09/12/18 07/17/21 ferrous sulfate 325 mg (65 mg 325 mg PO DAILY 07/10/21 07/16/21 iron) tablet omalizumab 150 mg/mL subcutaneous 300 mg SUBCUT Q4W Asthma 07/10/21 07/16/21 syringe (Xolair) Previous Rx's Medication Instructions Recorded acetaminophen 500 mg capsule 500 mg PO Q4H PRN Pain, Mild (1-3) 07/18/21 #90 caps albuterol sulfate 90 mcg/actuation See Rx Instructions .Route 09/30/21 aerosol inhaler .COMPLEX #25.5 grams dicyclomine 10 mg capsule See Rx Instructions .Route 09/30/21 .COMPLEX #360 caps fluoxetine 40 mg capsule See Rx Instructions .Route 09/30/21 .COMPLEX #90 caps gabapentin 600 mg tablet See Rx Instructions .Route 09/30/21 .COMPLEX #180 tabs hydrochlorothiazide 25 mg tablet See Rx Instructions .Route 09/30/21 .COMPLEX #45 tabs levothyroxine 112 mcg tablet See Rx Instructions .Route 09/30/21 .COMPLEX #90 tabs meclizine 25 mg tablet 25 mg PO TID PRN dizziness #90 tabs 09/30/21 montelukast 10 mg tablet See Rx Instructions .Route 09/30/21 .COMPLEX #90 tabs omeprazole 40 mg capsule,delayed See Rx Instructions .Route 09/30/21 release .COMPLEX #180 caps salmeterol 50 mcg/dose blister 2 inh inhalation BID #180 ea 09/30/21 powder for inhalation (Serevent Diskus) tramadol 50 mg tablet 50 mg PO Q6H PRN pain #40 tabs 09/30/21 fluticasone furoate 100 1 inh inhalation DAILY #60 ea 11/05/21 mcg-vilanterol 25 mcg/dose inhalation powder (Breo Ellipta) nirmatrelvir 150 mg-ritonavir 100 See Rx Instructions PO PER PKG DIR 01/14/22 mg tablet (EUA) (Paxlovid) #20 tabs Allergies Allergy/AdvReac Type Severity Reaction Status Date / Time paper tape Allergy Mild Redness Uncoded 07/10/21 13:09 Review of Systems <LIZETTE Machuca - Last Filed: 02/22/22 15:30> Review of Systems Narrative: Narrative: GENERAL: Denies chills, fatigue, fever, sweats. See HPI HEENT: Denies sinus pain, ear pain, sore throat, difficulty swallowing, dizziness. RESPIRATORY: Denies dyspnea, cough, wheezing, sputum. CARDIOVASCULAR: Denies chest pain, palpitations, edema. GASTROINTESTINAL: Denies nausea, vomiting, abdominal pain, diarrhea, constipation. : Denies dysuria, frequency, incontinence, hematuria, urinary retention, flank pain. MSK: Endorses left foot, ankle, knee pain. SKIN: Denies rash, skin lesions, or pruritis. NEUROLOGIC: Denies weakness, dizziness, headache, numbness, confusion. PSYCHIATRIC: No concerning psychosocial issues. 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 Easy bruisability Eczema Foot pain Heartburn HTN (hypertension) Hyperthyroidism Lower urinary tract symptoms (LUTS) Neck stiffness Postmenopausal atrophic vaginitis Prediabetes Shoulder pain Urge incontinence Surgical History Anesthesia History of bilateral knee replacement History of carpal tunnel repair (2007) History of cataract removal with insertion of prosthetic lens History of surgery (12/03/20) Hx of cholecystectomy S/P foot surgery, right (12/23/18) Family History Brother Age: 65 Prostate cancer Father Cancer Diabetes mellitus Hypertension Stroke Lung cancer Mother Heart disease Hypertension Heart attack Psoriasis Sister Age: 60 Brain tumor Cancer Social History marital status: number of children: 2 household members: family and children occupational status: previously employed and disabled Smoking Status: Never smoker alcohol intake: current substance use type: does not use caffeine: Yes Smoking Status: Never smoker alcohol intake frequency: holidays/special occasions only Substance Use Type: does not use Exam <LIZETTE Machuca - Last Filed: 02/22/22 15:30> Narrative Exam Narrative: Exam Narrative: GENERAL: This is a obese patient, in no acute distress HEAD: Atraumatic. Normocephalic. EYES: Pupils equal round and reactive. Extraocular motions intact. No scleral icterus, injection or drainage. ENT: Nose without bleeding, purulent drainage. Throat without erythema, tonsillar hypertrophy or exudate. Airway patent. NECK: Trachea midline. No JVD or lymphadenopathy. Nontender. CARDIOVASCULAR: Regular rate and rhythm without murmurs, peripheral pulses intact, cap refill <2 sec. RESPIRATORY: Breath sounds equal and clear bilaterally. No wheezes, rales, or rhonchi. No cough. No increased respiratory effort. No accessory muscle use. GASTROINTESTINAL: Abdomen soft, non-tender, nondistended without guarding or rebound. No suprapubic pain. MSK: Moves all extremities.Neurovascularly intact. Tenderness of left knee, ankle and foot. Tenderness along L5. NEURO: A&O x 3. SKIN: Warm, dry, no rashes or lesions noted. Initial Vital Signs Initial Vital Signs: Vital Signs Temperature 97.8 F 02/22/22 12:44 Pulse Rate 65 02/22/22 12:44 Respiratory Rate 14 02/22/22 12:44 Blood Pressure 135/78 02/22/22 12:44 Pulse Oximetry 99 02/22/22 12:44 Oxygen Delivery Method 02/22/22 12:44 Reviewed Back/Spine/Pelvis Other: BACK dry house tender but free of any obvious external abnormalities. Surgical scars along bilateral lumbar region. There is no asymmetry, swelling, bruising or wound. There is paraspinal tenderness along L4 but no CVA tenderness. SI joints nontender. No symptoms of cauda equina such as saddle anesthesia. Sensation is grossly intact. ROM is limited due to pain. SLE is negative bilaterally. Resistive strengths are within normal limits Extrem Other: FOOT: There is mild swelling but no bruising or asymmetry. There is tenderness to general palpation. Sensation grossly intact. There is tenderness over the mid-foot. The ankle flexion and extension is intact. Toes range of motion intact. The contralateral foot exam is unremarkable. <Nolan Cuello MD - Last Filed: 03/07/22 12:19> Initial Vital Signs Initial Vital Signs: Vital Signs Temperature 97.8 F 02/22/22 12:44 Pulse Rate 65 02/22/22 12:44 Respiratory Rate 14 02/22/22 12:44 Blood Pressure 135/78 02/22/22 12:44 Pulse Oximetry 99 02/22/22 12:44 Oxygen Delivery Method 02/22/22 12:44 Course <LIZETTE Machuca - Last Filed: 02/22/22 15:30> Orders Ordered: Discontinued Medications Oxycodone/Acetaminophen (Oxycodone/Acetaminophen 5/325 Tablet) 1 tab PO NOW ONE Stop: 02/22/22 13:29 Last Admin: 02/22/22 13:44 Dose: 1 tab Documented By: [facility] Vital Signs Vital signs: Vital Signs - 8 hr 02/22/22 12:44 Temperature 97.8 F Pulse Rate 65 Respiratory Rate 14 Blood Pressure 135/78 Pulse Oximetry 99 Oxygen Delivery Method Room Air <Nolan Cuello MD - Last Filed: 03/07/22 12:19> Orders Ordered: Discontinued Medications Oxycodone/Acetaminophen (Oxycodone/Acetaminophen 5/325 Tablet) 1 tab PO NOW ONE Stop: 02/22/22 13:29 Last Admin: 02/22/22 13:44 Dose: 1 tab Documented By: DORITA Vital Signs Vital signs: Vital Signs - 8 hr 02/22/22 12:44 Temperature 97.8 F Pulse Rate 65 Respiratory Rate 14 Blood Pressure 135/78 Pulse Oximetry 99 Oxygen Delivery Method Room Air MDM - Fall <LIZETTE Machuca - Last Filed: 02/22/22 15:30> Differential Diagnosis Differential diagnosis: Likely other (Left leg injury) Imaging Data Extremity x-ray #1: Radiologist's Impression: [address] [address] XRay Report Signed Patient: Yohannes Hu MR#: [id number] : 1945 Acct:[id number] Age/Sex: 76 / F Date of Service: 02/22/22 Loc: ED Accession Number: [id number] ?? Procedure: XR lumbar spine 2-3V Ordering Provider: Efraín Page PROCEDURE:? XR LUMBAR SPINE 2-3V ? INDICATIONS:? back pain ? TECHNIQUE:? 3 views of the lumbar spine were acquired.? ? COMPARISON:? [facility], , XR LUMBAR SPINE 2-3V, 07/16/2021, 14:41. ? FINDINGS:? ? Bones:? L2-3 and L3-4 discectomy and fusion with posterior brijesh and screw instrumentation. ?No evidence of hardware failure or loosening.? Convex right lumbar rotoscoliosis present. ? Soft tissues:? Overlying bowel gas pattern is normal.? No suspicious soft tissue calcifications.? Surgical clips present in the right upper quadrant ? ? IMPRESSION:? Rotoscoliosis without evidence of acute fracture or traumatic malalignment.? Mid lumbar spine discectomy and fusion ? ? ? Approved by: Sohail Abbott M.D. on 02/22/2022 at 14:17? Extremity x-ray #2: Radiologist's Impression: [address] [address] XRay Report Signed Patient: Yohannes Hu MR#: [id number] : 1945 Acct:[id number] Age/Sex: 76 / F Date of Service: 02/22/22 Loc: ED Accession Number: [id number] ?? Procedure: XR ankle LT min 3V Ordering Provider: Nolan Cuello MD PROCEDURE:? XR ANKLE LT MIN 3V ? INDICATIONS:? fall, unable to bear weight ? TECHNIQUE:? 3 views of the ankle were acquired.? ? COMPARISON:? None. ? FINDINGS:? ? Bones:? No fractures or dislocations.? Ankle mortise is normally aligned.? No suspicious bony lesions.? Calcaneal spur noted.? Degenerative changes noted in the midfoot. ? Soft tissues:? No tibiotalar joint effusion.? Achilles tendon appears normal.? ? ? IMPRESSION:? ? Degenerative changes without fracture or foreign body ? Dictated by: Sohail Abbott M.D. on 02/22/2022 at 13:46 ? ? Approved by: Sohail Abbott M.D. on 02/22/2022 at 13:50 ? Extremity x-ray #3: Radiologist's Impression: [address] [address] XRay Report Signed Patient: Yohannes Hu MR#: [id number] : 1945 Acct:[id number] Age/Sex: 76 / F Date of Service: 02/22/22 Loc: ED Accession Number: [id number] ?? Procedure: XR foot LT min 3V Ordering Provider: Nolan Cuello MD PROCEDURE:? XR FOOT LT MIN 3V ? INDICATIONS:? fall, unable to bear weight ? TECHNIQUE:? 3 views of the foot were acquired.? ? COMPARISON:? None. ? FINDINGS:? ? Bones:? No fractures or dislocations.? No suspicious bony lesions.? Tarsometatarsal joint space narrowing and marginal osteophyte present plantar calcaneal spur.? Generalized osseous demineralization present as well. ? Soft tissues:? No tibiotalar joint effusion.? Achilles tendon appears normal.? ? ? IMPRESSION:? ? No fracture or foreign body. Degenerative arthritic changes mild ? ? ? Approved by: Sohail Abbott M.D. on 02/22/2022 at 13:56? Extremity x-ray #4: Radiologist's Impression: [address] [address] XRay Report Signed Patient: Yohannes Hu MR#: [id number] : 1945 Acct:[id number] Age/Sex: 76 / F Date of Service: 02/22/22 Loc: ED Accession Number: [id number] ?? Procedure: XR knee LT 3V Ordering Provider: Nolan Cuello MD PROCEDURE:? XR KNEE LT 3V ? INDICATIONS:? fall, unable to bear weight ? TECHNIQUE:? 3 views of the knee were acquired.? ? COMPARISON:? None. ? FINDINGS:? ? Bones:? Generalized decrease in osseous mineralization noted.? Total knee arthroplasty in good position. ? Soft tissues:? Small joint effusion.? No suspicious soft tissue calcifications.? ? ? IMPRESSION:? Total knee arthroplasty in good position without fracture hardware failure.? Small joint effusion noted. ? ? ? Approved by: Sohail Abbott M.D. on 02/22/2022 at 13:54? MDM Narrative Medical decision making narrative: 76-year-old female that presents to the emergency department with left leg and lower back pain secondary to a fall x2 days ago.Consideration included that injury was non-traumatic, patient is not a IV drug user, no fever, neurovascular intact, no weakness, no signs of epidural abscess or saddle anesthesia. X-rays were all negative. Discharge patient with instructions to elevate the left leg and apply ice. Recommended Tylenol as needed for her pain. Discussed plan of care and return precautions with patient and daughter, who were agreeable with course of action. Discharge Plan Departure Patient Disposition: Home Clinical Impression: Left leg pain Activity Restrictions/Additional Instructions: *You have been diagnosed with a left leg injury. Your x-rays were all negative. I suspect your pain is from the swelling in your foot. Please elevate the leg above your heart and apply ice frequently over the next 24 hours. You may use Tylenol as needed for discomfort. Rest (modified activity), along with ice, compression wrap/splint-immobilize as directed and elevation above heart. Tylenol or Ibuprofen for discomfort. Please follow-up with your family doctor if symptoms persist or worsen. *What to do: *Please continue to take your regular medications as directed. [ ] New medication prescriptions sent to your pharmacy: [ ] [ ] New medication written as a paper prescription [x ] No new medications given *Please follow up with your primary care provider in 2-3 days, call for an appointment. Let them know you were seen in the Emergency Department and that we ask that you be seen in follow up. We will electronically transmit a record of today's note if your PCP is in our system *If you do not have a primary care provider please contact the [facility] Resource line at [phone]. They will ask some questions about your medical history and help get you set up with a doctor in the community. ? Return to ER if you should have any new, worsening or concerning symptoms, such as worsening pain, severe headache, confusion, chest pain, difficulty breathing, fever greater than 101 F, shaking chills, persistent vomiting to the point that you cannot drink fluids, or other new or worsening symptoms. Prescriptions: No Action PreserVision AREDS 1 EACH capsule 1 sgl PO BID Qty: 0 mecobalamin (vitamin B12) 1,000 mcg tablet,disintegrating 1,000 mcg SL DAILY gabapentin 600 mg tablet See Rx Instructions .ROUTE .COMPLEX Qty: 180 3RF Dose Instruction: TAKE 1 TABLET BY MOUTH THREE TIMES A DAY Label Comments: Pt states only takes bid Rx Instructions: TAKE 1 TABLET BY MOUTH TWICE A DAY hydrochlorothiazide 25 mg tablet See Rx Instructions .ROUTE .COMPLEX Qty: 45 3RF Dose Instruction: TAKE 1 TABLET BY MOUTH ONCE A DAY Label Comments: Pt states now 12.5mg daily Rx Instructions: TAKE 1/2 TABLET BY MOUTH ONCE A DAY levothyroxine 112 mcg tablet See Rx Instructions .ROUTE .COMPLEX Qty: 90 3RF Dose Instruction: TAKE 1 TABLET BY MOUTH ONCE A DAY Rx Instructions: TAKE 1 TABLET BY MOUTH ONCE A DAY albuterol sulfate 90 mcg/actuation HFA aerosol inhaler See Rx Instructions .ROUTE .COMPLEX Qty: 25.5 3RF Dose Instruction: INHALE 2 PUFFS BY MOUTH EVERY 4 HOURS NEEDED Rx Instructions: INHALE 2 PUFFS BY MOUTH EVERY 4 HOURS NEEDED dicyclomine 10 mg capsule See Rx Instructions .ROUTE .COMPLEX Qty: 360 3RF Dose Instruction: TAKE 1 CAPSULE BY MOUTH FOUR TIMES A DAY Rx Instructions: TAKE 1 CAPSULE BY MOUTH FOUR TIMES A DAY fluoxetine 40 mg capsule See Rx Instructions .ROUTE .COMPLEX Qty: 90 3RF Dose Instruction: TAKE 1 CAPSULE BY MOUTH ONCE A DAY Rx Instructions: TAKE 1 CAPSULE BY MOUTH ONCE A DAY meclizine 25 mg tablet 25 mg PO TID PRN (Reason: dizziness) Qty: 90 3RF omeprazole 40 mg capsule,delayed release(DR/EC) See Rx Instructions .ROUTE .COMPLEX Qty: 180 3RF Dose Instruction: TAKE 1 CAPSULE BY MOUTH TWICE A DAY Rx Instructions: TAKE 1 CAPSULE BY MOUTH TWICE A DAY Serevent Diskus 50 mcg/dose blister with device 2 inh inhalation BID Qty: 180 3RF Hold Instructions: not covered by insurance montelukast 10 mg tablet See Rx Instructions .ROUTE .COMPLEX Qty: 90 3RF Dose Instruction: TAKE 1 TABLET BY MOUTH ONCE A DAY Rx Instructions: TAKE 1 TABLET BY MOUTH ONCE A DAY tramadol 50 mg tablet 50 mg PO Q6H PRN (Reason: pain) Qty: 40 0RF Rx Instructions: postop exempt Breo Ellipta 100-25 mcg/dose blister with device 1 inh inhalation DAILY Qty: 60 0RF Paxlovid (EUA) 150-100 mg tablet See Rx Instructions PO PER PKG DIR Qty: 20 0RF Rx Instructions: PO PER PKG DIR Disabled Parking Permit 1 dev miscellaneous DIRECTED ferrous sulfate 325 mg (65 mg iron) Tablet 325 mg PO DAILY Xolair 150 mg/mL Syringe 300 mg SUBCUT Q4W acetaminophen 500 mg capsule 500 mg PO Q4H MDD Max 3000 mg per day PRN (Reason: Pain, Mild (1-3)) Qty: 90 0RF Referrals: Blanca Bauer MD [Primary Care Provider] - Visit Report Forms: Patient Portal/API <Nolan Cuello MD - Last Filed: 03/07/22 12:19> Cosign ED Attending Cosignature Attestation: I was immediately available in the department for consultation. This documentation has been reviewed and I agree with assessment and plan. Supervised by Nolan Cuello MD
--- NOTE | 2022-02-22 13:31 | DI.RAD.S_ITS ---
PROCEDURE: XR LUMBAR SPINE 2-3V INDICATIONS: back pain TECHNIQUE: 3 views of the lumbar spine were acquired. COMPARISON: [facility], , XR LUMBAR SPINE 2-3V, 07/16/2021, 14:41. FINDINGS: Bones: L2-3 and L3-4 discectomy and fusion with posterior brijesh and screw instrumentation. No evidence of hardware failure or loosening. Convex right lumbar rotoscoliosis present. Soft tissues: Overlying bowel gas pattern is normal. No suspicious soft tissue calcifications. Surgical clips present in the right upper quadrant IMPRESSION: Rotoscoliosis without evidence of acute fracture or traumatic malalignment. Mid lumbar spine discectomy and fusion Approved by: Sohail Abbott M.D. on 02/22/2022 at 14:17
[2022-02-22] MEDS: OXYCODONE/ACETAMINOPHEN 5/325 TABLET 1 TAB PO (13:44)
[2022-02-22 15:29] VITALS: BP 147/83; PULSE 70; RESP 18; O2SAT 98
== END 2022-02-22 15:32 | disposition home or self-care (01) ==
PROVIDERS: Emergency Provider Registered Nurse; PCP Family Medicine
DX: M79.605 Pain in left leg (principal); M54.50 Low back pain, unspecified; W19.XXXA Unspecified fall, initial encounter
CPT/HCPCS: 72100; 73562; 73610; 73630; 99283

== ENCOUNTER → 2022-03-24 11:16 | Outpatient (CLI) | payer MEDICARE, MEDICAID, SELFPAY ==
[2021-07-16 18:54] VITALS: BMI 37.0
--- NOTE | 2022-03-24 | DI.MG.S_ITS ---
BILATERAL DIGITAL SCREENING MAMMOGRAM 3D/2D WITH CAD: 03/24/2022 CLINICAL: Routine screening. Comparison is made to exams dated: 03/14/2021 mammogram, 02/15/2018 mammogram, and 10/16/2016 mammogram - [facility]. There are scattered fibroglandular elements in both breasts. Current study was also evaluated with a Computer Aided Detection (CAD) system. No significant masses, calcifications, or other findings are seen in either breast. There has been no significant interval change. IMPRESSION: NEGATIVE There is no mammographic evidence of malignancy. A 1 year screening mammogram is recommended. Based on the Tyrer Cuzick model (a risk assessment model) the patient's lifetime risk is 3.3% and her 10 year risk is 0.0%. According to the ACR, ACS, and NCCN guidelines, an annual breast MRI exam along with mammogram is recommended if the patient's lifetime risk is 20% or greater. This exam was interpreted at Station ID: [id number]. NOTE: For mammograms, a report in lay terms will be sent to the patient. Approximately 15% of breast malignancies will not be visualized mammographically. In the management of a palpable breast mass, a negative mammogram must not discourage biopsy of a clinically suspicious lesion. Electronically Signed By: Chi jack/willian:03/24/2022 14:46:37 letter sent: Normal Exam ACR BI-RADS Category 1: Negative [id number]
== END ==
PROVIDERS: PCP Family Medicine; Referring Provider Family Medicine; Visit Provider Family Medicine
DX: Z12.31 Encounter for screening mammogram for malignant neoplasm of breast (principal)
CPT/HCPCS: 77063; 77067

== ENCOUNTER → 2022-04-01 08:53 | Outpatient (CLI) | payer MEDICARE, MEDICAID, SELFPAY ==
[2021-07-16 18:54] VITALS: BMI 37.0
[2022-04-01 09:31] LABS: Add Manual Diff / Slide Review NO; Basophils Absolute Auto 0 /uL (0-100); Basophils Percent Auto 0.9 % (0-2); Eosinophils Absolute Auto 300 /uL (0-450); Eosinophils Percent Auto 5.5 % (2-4); Hematocrit 32.4 % (36-46); Hemoglobin 10.7 g/dL (12.0-16.0); Lymphocytes Absolute Auto 1800 /uL (1100-4500); Lymphocytes Percent Auto 32.2 % (25-40); Mean Corpuscular Hemoglobin 29.7 PG (26-34); Mean Corpuscular Volume 89.9 fL (80-100); Monocytes Absolute Auto 700 /uL (0-900); Monocytes Percent Auto 11.9 % (3-14); Neutrophils Absolute Auto 2700 /uL (1500-7000); Neutrophils Percent Auto 49.5 % (50-75); Platelet Count 226 X10^3/uL (150-400); Red Cell Distribution Width 15.5 % (11.6-14.8); White Blood Cell Count 5.5 X10^3/uL (4.5-11.0)
[2022-04-01 09:39] LABS: Hemoglobin A1C% w Est Avg Glu 5.7 % (4.0-6.0)
[2022-04-01 09:47] LABS: Alanine Aminotransferase 15 IU/L (<35); Albumin 3.5 g/dL (3.5-5.0); Albumin Globulin Ratio 1.2 (1.0-2.8); Alkaline Phosphatase 89 U/L (38-126); Aspartate Aminotransferase 23 IU/L (14-36); BUN Creatinine Ratio 20.2 (6-22); Bilirubin Total 0.3 mg/dL (0.2-1.3); Blood Urea Nitrogen 21 mg/dL (7-17); Calcium 8.8 mg/dL (8.4-10.2); Carbon Dioxide 27 mmol/L (22-32); Chloride 109 mmol/L (98-107); Cholesterol 183 mg/dL (140-199); Estimated Glomerular Filt Rate 56 mL/min (>60); Globulin 2.9 g/dL (1.7-4.1); Glucose 91 mg/dL (80-110); HDL Cholesterol 70 mg/dL (40-60); HEMOLYSIS < 15 (0-50); LDL Cholesterol Calculated 98 mg/dL (<100); Potassium 4.7 mmol/L (3.4-5.1); Sodium 139 mmol/L (137-145); Total Protein 6.4 g/dL (6.3-8.2); Triglycerides 77 mg/dL (35-150)
[2022-04-01 10:16] LABS: TSH w/ Reflex to FT4 3.59 uIU/mL (0.47-4.68)
== END ==
PROVIDERS: PCP Family Medicine; Referring Provider Family Medicine; Visit Provider Family Medicine
DX: E03.9 Hypothyroidism, unspecified (principal); R73.03 Prediabetes; D64.9 Anemia, unspecified; J44.9 Chronic obstructive pulmonary disease, unspecified; N18.30 Chronic kidney disease, stage 3 unspecified
CPT/HCPCS: 36415; 80053; 80061; 83036; 84443; 85025

== ENCOUNTER → 2022-04-24 12:44 | Outpatient (CLI) | payer MEDICARE, MEDICAID, SELFPAY ==
[2021-07-16 18:54] VITALS: BMI 37.0
--- NOTE | 2022-04-24 12:45 | DI.MRI.S_ITS ---
PROCEDURE: MR HEAD/BRAIN WO/W CON INDICATIONS: Recent blackouts and falls TECHNIQUE: Noncontrast axial T1 spin echo, axial T2 fast spin echo, sagittal and axial FLAIR, coronal T2 fast spin echo, axial gradient echo, axial diffusion and ADC through the brain. After the administration of contrast, axial and coronal and sagittal T1 spin echo with fat saturation through the brain. COMPARISON: None. FINDINGS: Image quality: Excellent. CSF spaces: Basal cisterns are patent. No extra-axial fluid collections. Ventricles are normal in size and shape. Brain: No midline shift. No intracranial bleeds or masses. No abnormal intracranial enhancement. There is cerebral volume loss for age. There is periventricular white matter chronic small vessel ischemic change. The brainstem appears normal. Diffusion-weighted images demonstrate no acute ischemic insults. No chronic ischemic insults. Normal intravascular flow voids are present. Skull and face: Calvarial marrow is normal in signal. Orbits appear normal. Note is made of bilateral lens replacements. Sinuses: Sinuses and mastoids appear clear. IMPRESSION: Unremarkable brain MRI for age, without an imaging explanation found for the patient's presenting history. No masses or abnormal enhancement can be seen. Dictated by: Kavon Trejo M.D. on 04/24/2022 at 13:37 Approved by: Kavon Trejo M.D. on 04/24/2022 at 13:38
== END ==
PROVIDERS: PCP Family Medicine; Referring Provider Family Medicine; Visit Provider Family Medicine
DX: R55 Syncope and collapse (principal); R29.6 Repeated falls
CPT/HCPCS: 70553; A9579

== ENCOUNTER → 2022-05-07 11:11 | Outpatient (CLI) | payer MEDICARE, MEDICAID, SELFPAY ==
[2021-07-16 18:54] VITALS: BMI 37.0
[2022-05-07 11:48] LABS: COVID19 -Nasal RAPID Negative (Negative)
== END ==
PROVIDERS: PCP Family Medicine; Referring Provider Podiatrist; Visit Provider Podiatrist
DX: Z20.822 Contact with and (suspected) exposure to COVID-19 (principal)
CPT/HCPCS: 87635; C9803

== ENCOUNTER 2022-05-08 13:15 | Day surgery (SDC) | payer MEDICARE, MEDICAID, SELFPAY ==
[2021-07-16 18:54] VITALS: BMI 37.0
[2022-05-01 07:58] VITALS: BMI 36.9
[2022-05-08] VITALS (7 sets, daily range): BP systolic 140–155; BP diastolic 78–92; PULSE 66–73; RESP 14–20; TEMP 36.5–36.8; O2SAT 96–100; BMI 36.9
[2022-05-08] MEDS: LACTATED RINGERS 1,000 ML 100 ML IV (14:44)
--- NOTE | 2022-05-08 15:26 | PM.PREOP ---
Pre-operative Note COVID-19 COVID-19 status: Negative Result date/Date tested (Pos, Neg/Pending): 05/07/22 Interval Note History & Physical reviewed/Exam performed by Physician: Yes Changes to H&P: No
--- NOTE | 2022-05-08 15:27 | PM.OP.1 ---
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 Conservative measures have failed to alleviate her pain and she wished to have surgical intervention at this time. She had an exostectomy on the contralateral foot and did well with this and wanted to have this done on the left foot. We spoke the risks, potential complications, alternatives, and expected outcomes. Consent was signed, no contraindications to the procedure at this time. Surgeon: Oumou Stinson Click Yes if Unassisted: Yes Anesthesia Type: General Operative Notes Closure Type: primary Specimen(s): none sent Estimated Blood Loss (mL): 20 Blood products transfused: none Tourniquet time (min): 18 Procedure in detail: The patient was brought to the operating room and placed on the operating table in the supine position. Tourniquet was placed about the left ankle. Patient is well-padded and appropriately supported. After induction of general anesthesia the left foot and ankle were prepped and draped in the usual aseptic manner. The tourniquet was inflated. Incision was made over the dorsal second metatarsocuneiform joint, extending up a little into the naviculocuneiform joint. The incision was deepened through subcutaneous tissues being careful to identify and retract all vital neurovascular structures. All bleeders were cauterized and ligated as necessary. The capsule was entered dorsally at the joint and this exposed the significant spurring of the dorsal joints in this area. A mixture of osteotome, rongeur, and manual rasp were used to resect and reduce the dorsal joint spurs in the area of the second and third tarsometatarsal joints as well as the second naviculocuneiform joint. The area was irrigated with copious amounts normal sterile saline. The tourniquet was deflated and a prompt hyperemic response was seen in the foot Deep and subcutaneous closure was closed performed with Vicryl. Nylon suture used to close the skin. The foot was dressed with a lightly compressive sterile dressing. Patient was then placed in a postoperative shoe and transferred to PACU with vital signs stable. Complications: none Post-operative Condition: stable Disposition: PACU Plan for aftercare: Following a period of postoperative monitoring, the patient will be discharged to home on written and oral postoperative instructions including keeping the dressing dry and intact, avoiding significant ambulation on the foot, icing and elevating the foot when seated home. DVT prevention techniques have been reviewed.
[2022-05-08] MEDS: CEFAZOLIN 2 GM/100 ML PREMIX 100 ML IV (15:48)
--- NOTE | 2022-05-08 16:13 | SUR.OPER ---
Supine on padded OR bed, head on pillow, arms secured on padded arm boards at <90 degrees abduction, legs uncrossed, safety belt at thigh, tape over blanket over right lower leg. Left leg under control of surgeon. Gel pad under heels.
[2022-05-08] MEDS: BUPIVACAINE 0.5% (PF) VIAL 30 ML INJ (16:26)
== END 2022-05-08 17:55 | disposition home or self-care (01) ==
PROVIDERS: PCP Family Medicine; Referring Provider Podiatrist; Visit Provider Podiatrist
PROC: (CPT 28122; principal; 2022-05-08 14:45)
DX: M19.072 Primary osteoarthritis, left ankle and foot (principal); M25.775 Osteophyte, left foot; J45.909 Unspecified asthma, uncomplicated; I10 Essential (primary) hypertension; E66.9 Obesity, unspecified; E03.9 Hypothyroidism, unspecified; Z68.37 Body mass index [BMI] 37.0-37.9, adult
CPT/HCPCS: 28122; 01480; J0690; J1100; J2250; J2405; J2704; J3010

== ENCOUNTER → 2022-10-14 09:36 | Outpatient (CLI) | payer MEDICARE, MEDICAID, SELFPAY ==
[2021-07-16 18:54] VITALS: BMI 37.0
[2022-10-14 11:43] LABS: Hemoglobin A1C% w Est Avg Glu 5.5 % (4.0-6.0)
[2022-10-14 12:19] LABS: Thyroid Stimulating Hormone 5.07 uIU/mL (0.47-4.68)
[2022-10-20 10:29] LABS: Free T3, Triiodothyronine Free 3.17 pg/mL (2.77-5.27); Free T4, Direct Thyroxine 1.65 ng/dL (0.78-2.19)
== END ==
PROVIDERS: PCP Family Medicine; Referring Provider Family Medicine; Visit Provider Family Medicine
DX: R73.03 Prediabetes (principal); E03.9 Hypothyroidism, unspecified; N18.31 Chronic kidney disease, stage 3a
CPT/HCPCS: 36415; 83036; 84439; 84443; 84481

== ENCOUNTER → 2023-06-16 12:06 | Outpatient (CLI) | payer MEDICARE, MEDICAID, SELFPAY ==
[2021-07-16 18:54] VITALS: BMI 37.0
--- NOTE | 2023-06-16 12:08 | DI.CT.S_ITS ---
PROCEDURE: CT LUMBAR SPINE WO CON INDICATIONS: Spinal stenosis, lumbar region TECHNIQUE: Noncontrast 3 mm thick sections acquired from the T12 level to the sacrum. Sagittal and coronal reformats were constructed. For radiation dose reduction, the following was used: automated exposure control. COMPARISON: [facility], CT, CT LUMBAR SPINE WO CON, 07/09/2021, 12:41. FINDINGS: Image quality: Excellent. Bones: Interval posterior lateral brijesh and pedicle screw fixation at L2 through L4 with interbody spacer placement, as well as interval left hemilaminectomy at L3-L4. No evidence of hardware failure or loosening. Trace anterolisthesis of L1 on L2 and trace retrolisthesis of L4 on L5. Very mild dextrocurvature. No acute vertebral body compression fractures. No suspicious lytic or blastic bony lesions. No pars defects. T12-L1: No canal stenosis or foraminal stenosis. L1-L2: No canal stenosis or foraminal stenosis. L2-L3: Interval fusion. No significant canal stenosis noted. No significant foraminal stenosis identified. L3-L4: Interval fusion and left hemilaminectomy. No significant canal stenosis. At least mild left foraminal stenosis. L4-L5: Disc bulge. Facet and ligament hypertrophy. Moderate to severe canal stenosis. Moderate bilateral foraminal stenosis. L5-S1: Facet hypertrophy. Disc bulge. No significant canal stenosis. At least moderate bilateral foraminal narrowing. Soft tissues: No retroperitoneal masses or hematomas. Visualized aorta is normal in caliber. IMPRESSION: 1. Expected appearance of lumbar surgical fusion hardware 2. Moderate to severe canal stenosis at L4-L5. 3. Multilevel foraminal narrowing as described above. Dictated by: Gautam Spivey M.D. on 06/16/2023 at 15:23 Approved by: Gautam Spivey M.D. on 06/16/2023 at 15:31
== END ==
PROVIDERS: PCP Family Medicine; Referring Provider Orthopaedic Surgery Orthopaedic Surgery of the Spine; Visit Provider Orthopaedic Surgery Orthopaedic Surgery of the Spine
DX: M48.062 Spinal stenosis, lumbar region with neurogenic claudication (principal); Z98.1 Arthrodesis status; M48.07 Spinal stenosis, lumbosacral region
CPT/HCPCS: 72131

== ENCOUNTER → 2023-07-14 09:14 | Outpatient (CLI) | payer MEDICARE, MEDICAID, SELFPAY ==
[2021-07-16 18:54] VITALS: BMI 37.0
[2023-07-14 10:33] LABS: Add Manual Diff / Slide Review NO; Basophils Absolute Auto 100 /uL (0-100); Eosinophils Absolute Auto 300 /uL (0-450); Eosinophils Percent Auto 5.7 % (2-4); Hematocrit 32.3 % (36-46); Hemoglobin 10.5 g/dL (12.0-16.0); Lymphocytes Absolute Auto 1500 /uL (1100-4500); Lymphocytes Percent Auto 26.4 % (25-40); Mean Corpuscular HGB Conc 32.3 % (30-36); Mean Corpuscular Volume 89.7 fL (80-100); Monocytes Absolute Auto 700 /uL (0-900); Neutrophils Absolute Auto 3100 /uL (1500-7000); Neutrophils Percent Auto 54.9 % (50-75); Platelet Count 201 X10^3/uL (150-400); Red Blood Cell Count 3.61 X10^6/uL (4.0-5.2); Red Cell Distribution Width 17.7 % (11.6-14.8); White Blood Cell Count 5.6 X10^3/uL (4.5-11.0)
[2023-07-14 10:37] LABS: Hemoglobin A1C% w Est Avg Glu 5.7 % (4.0-6.0)
[2023-07-14 10:42] LABS: Prothrombin Time 11.1 SECONDS (9.4-12.5)
[2023-07-14 10:44] LABS: PTT Partial Thromboplastin Tim 30 SECONDS (25.1-36.5)
[2023-07-14 10:51] LABS: Alanine Aminotransferase 18 IU/L (<35); Albumin 3.5 g/dL (3.5-5.0); Albumin Globulin Ratio 1.1 (1.0-2.8); Alkaline Phosphatase 79 U/L (38-126); Aspartate Aminotransferase 26 IU/L (14-36); BUN Creatinine Ratio 16.2 (6-22); Bilirubin Total 0.5 mg/dL (0.2-1.3); Blood Urea Nitrogen 16 mg/dL (7-17); Calcium 9.2 mg/dL (8.4-10.2); Carbon Dioxide 22 mmol/L (22-32); Chloride 109 mmol/L (98-107); Cholesterol 199 mg/dL (140-199); Estimated Glomerular Filt Rate 59 mL/min (>60); Globulin 3.2 g/dL (1.7-4.1); Glucose 92 mg/dL (80-110); HDL Cholesterol 65 mg/dL (40-60); HEMOLYSIS < 15 (0-50); LDL Cholesterol Calculated 119 mg/dL (<100); Potassium 4.3 mmol/L (3.4-5.1); Sodium 137 mmol/L (137-145); Total Protein 6.7 g/dL (6.3-8.2); Triglycerides 74 mg/dL (35-150)
[2023-07-14 10:52] LABS: HEMOLYSIS < 15 (0-50); Iron 46 ug/dL (37-170)
[2023-07-14 11:02] LABS: Percent Iron Saturation 12 % (15-50); Total Iron Binding Capacity 387 ug/dL (265-497); Transferrin 354 mg/dL (206-381)
[2023-07-14 11:26] LABS: Ferritin 8 ng/mL (11-264)
== END ==
PROVIDERS: Family Medicine; PCP Family Medicine; Referring Provider Family Medicine; Visit Provider Family Medicine
DX: R73.03 Prediabetes (principal); R23.3 Spontaneous ecchymoses; I10 Essential (primary) hypertension; D64.9 Anemia, unspecified; E03.9 Hypothyroidism, unspecified; L30.9 Dermatitis, unspecified
CPT/HCPCS: 36415; 80053; 80061; 82728; 83036; 83540; 83550; 84443; 85025; 85610; 85730

== ENCOUNTER → 2023-07-15 11:46 | Outpatient (CLI) | payer MEDICARE, MEDICAID, SELFPAY ==
[2021-07-16 18:54] VITALS: BMI 37.0
[2023-07-15 18:42] LABS: Creatinine Urine Random 107.7 mg/dL
[2023-07-15 18:47] LABS: Microalbumi Creatinin Ratio Ur 6.4 ug/mg CR (<30); Microalbumin Urine Random 0.7 mg/dL (0-1.6)
== END ==
PROVIDERS: PCP Family Medicine; Referring Provider Family Medicine; Visit Provider Family Medicine
DX: R73.03 Prediabetes (principal); I10 Essential (primary) hypertension
CPT/HCPCS: 82043; 82570